=== PATIENT | female | born 1945 | race Caucasian/White ===

== ENCOUNTER → 2019-04-29 09:23 | Outpatient (BNVA) | payer MEDICAID, SELFPAY | PROVIDERS: Family Provider Nurse Practitioner; PCP Nurse Practitioner; Visit Provider Internal Medicine Rheumatology | DX: L40.50 Arthropathic psoriasis, unspecified (principal); E11.9 Type 2 diabetes mellitus without complications; I10 Essential (primary) hypertension | CPT/HCPCS: 80053; 82044; 83036; 85025; 85651; 86140 ==

== ENCOUNTER → 2019-06-23 14:17 | Outpatient (BNVA) | payer MEDICAID, SELFPAY | PROVIDERS: Family Provider Nurse Practitioner; PCP Nurse Practitioner; Visit Provider Internal Medicine Rheumatology | DX: L40.50 Arthropathic psoriasis, unspecified (principal); Z79.899 Other long term (current) drug therapy; L40.8 Other psoriasis | CPT/HCPCS: 99214 ==

== ENCOUNTER → 2019-08-06 08:27 | Outpatient (BNVA) | payer MEDICAID, SELFPAY | PROVIDERS: Family Provider Nurse Practitioner; PCP Nurse Practitioner; Visit Provider Internal Medicine Rheumatology | DX: Z79.899 Other long term (current) drug therapy (principal); L40.50 Arthropathic psoriasis, unspecified | CPT/HCPCS: 80076; 82306; 82565; 85025; 85651; 86140 ==

== ENCOUNTER 2019-08-22 05:40 | Emergency (ER) | payer MEDICAID, SELFPAY ==
--- NOTE | 2019-08-22 05:48 | CTR_ITS ---
PROCEDURE INFORMATION: Exam: CT Head Without Contrast Exam date and time: 08/22/2019 5:50 AM Age: 73 years old Clinical indication: Dizziness; Additional info: Symptoms of acute stroke TECHNIQUE: Imaging protocol: Computed tomography of the head without contrast. Radiation optimization: All CT scans at this facility use at least one of these dose optimization techniques: automated exposure control; mA and/or kV adjustment per patient size (includes targeted exams where dose is matched to clinical indication); or iterative reconstruction. COMPARISON: CT head wo con* [id number] 09/25/2016 9:43 PM RADIATION DOSE METRICS: Total DLP: 853.71 mGy-cm FINDINGS: Brain: There is minimal hypodensity of the periventricular white matter. This is nonspecific, but a likely cause is small vessel ischemic disease. No abnormal intra-axial or extra-axial fluid collections are identified. There is no midline shift. No intracranial hemorrhage identified. Ventricles: The ventricles and sulci are mildly and diffusely prominent, compatible with global brain volume loss. Bones/joints: Note is made of a 1.8 cm x 1.2 cm exostosis projecting from the left frontal bone on series 2, image 29. Sinuses: Visualized sinuses are unremarkable. No fluid levels. Mastoid air cells: Visualized mastoid air cells are well aerated. Soft tissues: Unremarkable. CT/CT head wo con* [id number] IMPRESSION: 1. No acute intracranial abnormality identified. Radiation Dose CTDIVOL = (mGy): DLP = 853.71 (mGy-cm)
--- NOTE | 2019-08-22 05:48 | ECG_ITS ---
Measurements Intervals [place] Rate: 83 P: 46 CT: 185 QRS: 69 QRSD: 84 T: 1 QT: 387 QTc: 455 SINUS RHYTHM Compared to ECG 04/23/2017 04:50:39 No significant changes Electronically Signed On 08-22-2019 11:38:27 CDT by Kassidy Frank M.D. [email or web address]
--- NOTE | 2019-08-22 05:48 | XR_ITS ---
WS: [id number] XR chest 1V portable [id number] REASON FOR EXAM: dizzy FINDINGS: Arteriosclerotic changes in the arch of the aorta. Comparisons were made to November 11, 2018. The lung fowler are well aerated. No pneumonia, pleural effusion, pulmonary edema, or mass effect. The hilum and apices normal. No osseous abnormalities. XR/XR chest 1V portable [id number] IMPRESSION: Arteriosclerotic changes.
[2019-08-22 05:50] VITALS: BP 163/82; RESP 18; TEMP 36.7; O2SAT 95; BMI 37.2
--- NOTE | 2019-08-22 06:12 | W.ED.DIZZY ---
HPI - Dizziness General: Chief Complaint: Dizziness Stated Complaint: dizzy Time Seen by Provider: 08/22/19 06:12 History of Present Illness: HPI Narrative: 73 yo female brought to the ER via EMS from home after waking with dizziness. States she woke up with a dizziness had been in her usual state of health yesterday. She had tried to roll over in bed and became very dizzy she was nauseous as well she has not had any vomiting now. She states she can move to a certain extent turn her head or even roll up on her side without causing much dizziness but if she goes too far or moves her head too fast then she will induce the dizziness her symptoms are completely resolved at this time. She has no chest pain. She is not had any diarrhea she does have a chronic cough related to COPD but she had no change in cough is not increasing sputum at all. She denies any other recent illness denies bowel or bladder symptoms no history of coronary artery disease no history of stroke. Associated symptoms: Denies chest pain, chills, headache(s), malaise, nausea, nasal congestion or vomiting Associated neuro symptoms: Deny numbness in extremities Review of Systems Const: Denies: fever, chills, body aches, change in appetite, fatigue or malaise ENMT: Denies: throat pain, ear pain, nasal discharge or nasal congestion Card: Denies: chest pain, edema, shortness of breath on exertion or shortness of breath when lying down Resp: Denies: shortness of breath, productive cough or non-productive cough GI: Denies: abdominal pain, nausea, vomiting, vomiting blood, coffee grounds in vomit, diarrhea, constipation, bloating, blood in stool or black tarry stool : Denies: flank pain, difficulty urinating, painful urination, urinary frequency or urinary urgency Skin/Breast: Denies: rash or itching Neuro: Reports: dizziness; Denies: headache, numbness in extremities, weakness in extremities, changes in sensation, lack of coordination, difficulty walking, frequent falls or vertigo PFS ED PFSH: Medical History COPD (chronic obstructive pulmonary disease) High risk medication use Hypertension Immunization counseling Insulin dependent diabetes mellitus Osteoarthritis Psoriasis Psoriatic arthritis Surgical History H/O tubal ligation Family History Other Cancer Heart disease Hypertension Denies family history of Rheumatoid arthritis Lupus Social History Smoking and tobacco status: former smoker Alcohol intake: never Physical Exam Const: COMMON NORMALS: no apparent distress GENERAL APPEARANCE: cooperative and comfortable ORIENTATION/CONSCIOUSNESS: Yes awake, Yes oriented to person, Yes oriented to place and Yes oriented to time HENMT: COMMON NORMALS: normocephalic, head/scalp atraumatic, hearing grossly normal bilaterally, external ears normal, EAC's normal, TM's normal bilaterally, nasal mucous membranes and turbinates normal, moist oral mucous membranes and oropharynx normal HEAD & SCALP: normocephalic and atraumatic NOSE: nasal mucous membranes and turbinates normal EXTERNAL EAR: Yes external ears normal EXTERNAL AUDITORY CANAL: EAC's normal TYMPANIC MEMBRANE: TM's normal bilaterally Eye: COMMON NORMALS: PERRL, EOMs intact bilaterally, conjunctivae normal and no scleral icterus VISUAL ACUITY: Yes acuity normal CONJUNCTIVA: Yes conjunctivae normal SCLERA: sclerae normal PUPIL: Yes PERRL EOM: No nystagmus Neck/C-Spine: COMMON NORMALS: full ROM, no lymphadenopathy, supple and no JVD Lymph: LYMPHATIC: no lymphadenopathy noted and no lymphedema noted Resp: COMMON NORMALS: normal respiratory effort, no retractions, no use of accessory muscles and clear to auscultation bilaterally AUSCULTATION: clear to auscultation bilaterally Cardio: COMMON NORMALS: no JVD, regular rate, regular rhythm and no murmurs RATE: regular rate RHYTHM: regular rhythm GI: COMMON NORMALS: soft to palpation and no hepatosplenomegaly AUSCULTATION: Yes normoactive bowel sounds PALPATION: Yes soft, No tender, No guarding and Yes no hepatosplenomegaly Extremity: COMMON NORMALS: normal to inspection, normal capillary refill, no clubbing, cyanosis or edema, no calf tenderness and no pedal edema Neuro: SENSORIUM/ORIENTATION: Yes oriented to person, Yes oriented to place and Yes oriented to time CRANIAL NERVES: Yes CN normal except as noted COORDINATION/BALANCE: urch-[id number]-cfcp test normal SENSORY EXAM: No sensory level loss detected MOTOR EXAM: strength 5/5 throughout COORDINATION: [id number] test normal Skin: COMMON NORMALS: no rashes or lesions noted GENERAL SKIN EXAM: no rashes or lesions noted Course Vital Signs: Vital signs: Vital Signs Temperature 98.1 F 08/22/19 05:50 Pulse Rate 92 08/22/19 07:54 Respiratory Rate 18 08/22/19 07:54 Blood Pressure 155/87 08/22/19 07:54 Pulse Oximetry 94 08/22/19 07:54 MDM - Dizziness MDM Narrative: Medical decision making narrative: He is doing much better the dizziness is reproducible if she moves her head the chest to move quick enough she moves slowly and actually does not reproduce. We will go and discharge her home meclizine worsening or problems return Lab Data: Attestation: I reviewed the patient's lab results. Labs: Lab Results 08/22/19 08/22/19 08/22/19 Range/Units 06:11 06:11 06:11 WBC 6.4 (4.0-10.0) 10^3/ uL RBC 4.33 (4.1-5.3) 10^6/u L Hgb 12.0 (11.5-15.3) g/dL Hct 38.9 (37.0-47.0) % MCV 89.8 (81-99) fL MCH 27.7 L (28.0-34.0) pg MCHC 30.8 (30.0-36.0) g/dL RDW 13.3 (12.1-15.1) % Plt Count 282 (130-400) 10^3/c mm MPV 10.9 H (7.4-10.4) fL Neut % (Auto) 54.6 % Lymph % (Auto) 32.9 % [place] % (Auto) 8.5 % Eos % (Auto) 3.5 % Baso % (Auto) 0.3 % Neut # (Auto) 3.5 (1.8-7.7) 10^3/u L Lymph # (Auto) 2.1 (0.8-4.8) 10^3/u L [place] # (Auto) 0.5 (0.2-0.9) 10^3/u L Eos # (Auto) 0.2 (0.0-0.8) 10^3/u L Baso # (Auto) 0.0 (0.0-0.1) 10^3/u L Nucleated RBC % (a uto) 0 % Nucleated RBCs # 0.0 /100WBC PT 13.50 H (10.5-13.3) SECO NDS INR 1.00 (0.8-1.2) APTT 30.3 (23.9-36.7) SECO NDS Sodium 140 (136-145) mmol/L Potassium 3.7 (3.5-5.1) mmol/L Chloride 98 (98-107) mmol/L Carbon Dioxide 29 (22-29) mmol/L Anion Gap 16.7 (5-19) BUN 9 (8-23) mg/dL Creatinine 0.7 (0.5-0.9) mg/dL Glucose 131 H (65-115) mg/dL Calculated Osmolal ity 288 (285-295) mOsm/k g Calcium 9.7 (8.5-10.5) mg/dL Total Bilirubin 0.2 (0.15-1.2) mg/dL AST 15 (0-32) U/L ALT 10 (0-33) U/L Alkaline Phosphata se 42 (35-105) IU/L Total Protein 7.6 (6.6-8.7) g/dL Albumin 3.8 (3.5-5.2) g/dL Globulin 3.8 (1.3-4.6) g/dL Discharge Plan Discharge Patient Disposition: Home, Self-Care Clinical Impression: Acute labyrinthitis Condition: Stable Prescriptions: New meclizine 25 mg tablet 25 mg PO QID PRN (Reason: dizziness) Qty: 20 RF: 0 No Action Humira Pen 40 mg/0.8 mL pen injector kit 40 mg SUBCUT ONCE RF: 0 ergocalciferol (vitamin D2) 50,000 unit capsule 50,000 unit PO .monthly RF: 0 albuterol sulfate 2.5 mg /3 mL (0.083 %) solution for nebulization 2.5 mg INHALATION Q4H PRNRF: 0 (DME) nebulizers Misc See Rx Instructions .ROUTE .MEDSUPPLY Qty: 1 RF: 0 (DME) nebulizers Kit See Rx Instructions .ROUTE .MEDSUPPLY Qty: 1 RF: 0 albuterol sulfate [ProAir HFA] 90 mcg/actuation HFA aerosol inhaler 2 puff INHALATION Q6H PRNRF: 0 atorvastatin 40 mg tablet 40 mg PO QDAY RF: 0 omeprazole 20 mg capsule,delayed release(DR/EC) 20 mg PO QDAY RF: 0 insulin lispro protamin-lispro 100 unit/mL (50-50) insulin pen 10 unit SUBCUT DAILY RF: 0 metformin 1,000 mg tablet 1,000 mg PO BID RF: 0 hydrochlorothiazide 12.5 mg tablet 25 mg PO QAM RF: 0 aspirin 325 mg tablet 325 mg PO DAILY RF: 0 levothyroxine 50 mcg tablet 50 mcg PO DAILY RF: 0 amlodipine 5 mg tablet 5 mg PO DAILY RF: 0 losartan 100 mg tablet 100 mg PO DAILY RF: 0 Discharge Orders: Discharge Order (Routine); Ordered 08/22/19 Ordered By: Tereso Crespo Referrals: Emily Mercer MD [Primary Care Provider] - Discharge Diet: Usual diet Discharge Activity: Increase activity as tolerated Activity Restrictions/Additional Instructions: Follow-up with your primary care provider if does not improve Discharge Date/Time: 08/22/19 07:56 Coding Level of Care Code ED Occupational Therapy Asst for Chg Fwd Exam Comprehensive
[2019-08-22 06:21] LABS: Basophils % 0.3 %; Eosinophils # 0.2 10^3/uL (0.0-0.8); Eosinophils % 3.5 %; Hematocrit 38.9 % (37.0-47.0); Lymphocytes # 2.1 10^3/uL (0.8-4.8); Lymphocytes % 32.9 %; Mean Corpuscular HGB Conc 30.8 g/dL (30.0-36.0); Mean Corpuscular Hemoglobin 27.7 pg (28.0-34.0); Mean Corpuscular Volume 89.8 fL (81-99); Mean Platelet Volume 10.9 fL (7.4-10.4); Monocytes # 0.5 10^3/uL (0.2-0.9); Monocytes % 8.5 %; Neutrophils # 3.5 10^3/uL (1.8-7.7); Neutrophils % 54.6 %; Nucleated Red Blood Cells % 0 %; Platelet Count 282 10^3/cmm (130-400); Red Blood Count 4.33 10^6/uL (4.1-5.3); Red Cell Distribution Width 13.3 % (12.1-15.1); White Blood Count 6.4 10^3/uL (4.0-10.0)
[2019-08-22 06:30] LABS: Partial Thromboplastin Time 30.3 SECONDS (23.9-36.7)
[2019-08-22 06:43] LABS: Alanine Aminotransferase 10 U/L (0-33); Albumin Level 3.8 g/dL (3.5-5.2); Alkaline Phosphatase 42 IU/L (35-105); Anion Gap 16.7 (5-19); Aspartate Amino Transferase 15 U/L (0-32); Blood Urea Nitrogen 9 mg/dL (8-23); Calcium 9.7 mg/dL (8.5-10.5); Carbon Dioxide 29 mmol/L (22-29); Chloride 98 mmol/L (98-107); Creatinine Clr Calc Pharmacy 69.7831; Globulin 3.8 g/dL (1.3-4.6); Glucose 131 mg/dL (65-115); Osmolality Calculated 288 mOsm/kg (285-295); Potassium 3.7 mmol/L (3.5-5.1); Sodium 140 mmol/L (136-145); Total Bilirubin 0.2 mg/dL (0.15-1.2); Total Protein 7.6 g/dL (6.6-8.7)
[2019-08-22 07:21] VITALS: BP 158/87
[2019-08-22] MEDS: losartan 50 mg Tablet 100 MG PO (07:21)
[2019-08-22] MEDS: meclizine 25 mg tablet PO (07:22)
[2019-08-22] MEDS: amlodipine 5 mg Tablet PO (07:22)
[2019-08-22 07:54] VITALS: BP 155/87; PULSE 92; RESP 18; O2SAT 94
== END 2019-08-22 07:56 | disposition home or self-care (01) ==
PROVIDERS: Emergency Medicine; Emergency Provider Family Medicine; PCP Internal Medicine
DX: H83.09 Labyrinthitis, unspecified ear (principal); Z79.4 Long term (current) use of insulin; Z79.82 Long term (current) use of aspirin; J44.9 Chronic obstructive pulmonary disease, unspecified; I10 Essential (primary) hypertension; E11.9 Type 2 diabetes mellitus without complications; Z87.891 Personal history of nicotine dependence
CPT/HCPCS: 12345; 70450; 71045; 80053; 85025; 85610; 85730; 93005; 99282; 99283; J8597

== ENCOUNTER → 2019-09-08 09:05 | Outpatient (BNVA) | payer MEDICAID, SELFPAY | PROVIDERS: PCP Internal Medicine; Visit Provider Internal Medicine | DX: E03.9 Hypothyroidism, unspecified (principal); E11.9 Type 2 diabetes mellitus without complications; L40.50 Arthropathic psoriasis, unspecified | CPT/HCPCS: 80053; 83036; 84443; 85025; 85651; 86140 ==

== ENCOUNTER → 2019-09-28 09:51 | Outpatient (BNVA) | payer MEDICAID, SELFPAY | PROVIDERS: PCP Internal Medicine; Visit Provider Internal Medicine Rheumatology | DX: L40.50 Arthropathic psoriasis, unspecified (principal); Z79.899 Other long term (current) drug therapy; L40.8 Other psoriasis; M17.10 Unilateral primary osteoarthritis, unspecified knee | CPT/HCPCS: 99214 ==

== ENCOUNTER 2019-10-06 09:31 | Outpatient (CLI) | payer MEDICAID, SELFPAY ==
--- NOTE | 2019-10-06 09:35 | CT_ITS ---
WS: [id number] CT LUNG CANCER SCREENING DLP: 79.42 mGy.cm DIvol: 2.28 mGy CLINICAL INFORMATION SCREENING VISIT: Baseline COMPARISON: Chest radiograph 08/22/2019 FINDINGS Diagnostic quality: Satisfactory Comments: None. Lung Nodules: 4 mm posterior solid nodule RIGHT lower lobe, image 229 of series 3. Lungs: Hyperinflated lungs from emphysema. Benign calcified granuloma along the RIGHT minor fissure. Heart: Mild enlargement of the heart chambers. Extensive coronary artery atherosclerosis. Other findings: Extensive atherosclerosis of the thoracic aorta with no aneurysm. Pulmonary artery si ze is equal to the aorta. No adenopathy appreciated. Moderate size hiatal hernia. Cholelithiasis. Degenerative changes throughout the thoracic spine. CT/CT lung screening [id number] IMPRESSION: LUNG-RADS: 2S-Benign Appearance or Behavior with Significant Findings FOLLOW UP: 12 Month: Continue annual screening with LDCT 1. Severe atherosclerosis coronary arteries. 2. Extensive atherosclerosis thoracic aorta.
== END 2019-10-06 09:32 | disposition home or self-care (01) ==
LOC: CT 09:31
PROVIDERS: PCP Internal Medicine; Visit Provider Internal Medicine
DX: Z12.2 Encounter for screening for malignant neoplasm of respiratory organs (principal); Z87.891 Personal history of nicotine dependence; I25.10 Atherosclerotic heart disease of native coronary artery without angina pectoris; I70.0 Atherosclerosis of aorta
CPT/HCPCS: G0297

== ENCOUNTER 2019-10-23 09:28 | Outpatient (CLI) | payer MEDICAID, SELFPAY ==
--- NOTE | 2019-10-23 09:35 | USCV_ITS ---
Reginaldo Mini Age: 74 Gender: F : 1945 Exam Date: 10/23/2019 09:46 Ordering Phys: Emily Mercer MD Technologist: Elvira Duncan Exam Location: [facility] [place] Indication: SHORTNESS OF BREATH BP: / HR: 83 Rhythm: Sinus Technical Quality: Fair MEASUREMENTS (Male / Female) Normal Values 2D ECHO LV Diastolic Diameter PLAX 5.4 cm 4.2 - 5.9 / 3.9 - 5.3 cm LV Systolic Diameter PLAX 4.0 cm IVS Diastolic Thickness 1.4 cm 0.6 - 1.0 / 0.6 - 0.9 cm IVS Systolic Thickness 2.2 cm LVPW Diastolic Thickness 1.0 cm 0.6 - 1.0 / 0.6 - 0.9 cm LVPW Systolic Thickness 1.6 cm LVOT Diameter 2.0 cm LV Ejection Fraction 2D Teich 51.7 % LV Ejection Fraction MOD 2C 67.8 % LV Ejection Fraction 2C AL 72.5 % LA Diameter 3.6 cm LA Width 2.6 cm LA Height 6.3 cm RA Width 2.5 cm RA Height 5.1 cm M-MODE LV Diastolic Diameter MM 6.5 cm 4.2 - 5.9 / 3.9 - 5.3 cm LV Systolic Diameter MM 4.8 cm LV Ejection Fraction MM Teich 49.6 % IVS Diastolic Thickness MM 0.7 cm 0.6 - 1.0 / 0.6 - 0.9 cm IVS Systolic Thickness MM 1.4 cm LVPW Diastolic Thickness MM 0.7 cm 0.6 - 1.0 / 0.6 - 0.9 cm LVPW Systolic Thickness MM 1.7 cm Aortic Annulus Diameter 3.9 cm LA Ao Ratio MM 0.9 MV E Point Septal Separation 0.8 cm DOPPLER AV Peak Velocity 114.0 cm/s LVOT Peak Velocity 125.0 cm/s AV Area Cont Eq vti 4.4 cm squared AV Area Cont Eq pk 3.5 cm squared MV Peak Velocity 119.0 cm/s MV Area PHT 4.6 cm squared Mitral E to A Ratio 0.6 MV E' Velocity 5.0 cm/s Mitral E to MV E' Ratio 17.9 Mitral E to LV E' Lateral Ratio 15.3 Mitral E to LV E' Septal Ratio 21.6 TR Peak Velocity 87.0 cm/s TR Peak Gradient 3.1 mmHg Right Atrial Pressure 3.0 mmHg Pulmonary Artery Systolic Pressu 6.0 mmHg PV Peak Velocity 84.0 cm/s RV Acceleration Time 0.1 s FINDINGS Left Ventricle Normal left ventricular cavity size. Normal left ventricular systolic function. No regional wall motion abnormalities. Left ventricular ejection fraction is estimated at 55 %. Grade I/IV diastolic dysfunction (abnormal relaxation filling pattern), normal to mildly elevated filling pressures. Right Ventricle The right ventricle is normal in size and function. RVSP could not be calculated due to incomplete tricuspid regurgitation velocity profile. Right Atrium The right atrium is normal in size. Left Atrium The left atrium is normal in size. Mitral Valve Moderately thickened mitral valve. Severe mitral annular calcification. No mitral valve stenosis. No mitral valve regurgitation. Aortic Valve Severe aortic valve calcification. No aortic valve stenosis. No aortic valve regurgitation. Tricuspid Valve Thickened tricuspid valve. No tricuspid valve stenosis. No tricuspid valve regurgitation. Pulmonic Valve Structurally normal pulmonic valve without significant stenosis. There is no pulmonic regurgitation. Pericardium Normal pericardium without effusion. Aorta Normal ascending aorta dimension. CONCLUSIONS 1-Normal left ventricular cavity size. Normal left ventricular systolic function. No regional wall motion abnormalities. Left ventricular ejection fraction is estimated at 55 %. Grade I/IV diastolic dysfunction (abnormal relaxation filling pattern), normal to mildly elevated filling pressures. 2-Moderately thickened mitral valve. Severe mitral annular calcification. No mitral valve stenosis. No mitral valve regurgitation. 3-Severe aortic valve calcification. No aortic valve stenosis. No aortic valve regurgitation. 4-There is no pericardial effusion. 5-The right ventricle is normal in size and function. RVSP could not be calculated due to incomplete tricuspid regurgitation velocity profile. 6-Right atrial pressure is around 5 mm of mercury. 7-No significant change since the prior echocardiogram study of 04/24/2017. Mare Rosales MD (Electronically Signed) Final Date: 26 October 2019 20:22 S
== END 2019-10-23 09:29 | disposition home or self-care (01) ==
LOC: RAD 09:29
PROVIDERS: PCP Internal Medicine; Visit Provider Internal Medicine
DX: R06.02 Shortness of breath (principal); I05.9 Rheumatic mitral valve disease, unspecified; I70.0 Atherosclerosis of aorta
CPT/HCPCS: 93306

== ENCOUNTER 2019-12-04 11:30 | Outpatient (CLI) | payer MEDICAID, SELFPAY ==
--- NOTE | 2019-12-04 11:33 | MM_ITS ---
WS: [id number] BILATERAL SCREENING DIGITAL MAMMOGRAM WITH CAD HISTORY: SCREENING COMPARISON: 10/21/2018 and 10/18/2017 Bilateral CC and MLO views submitted. Computer aided detection analyzed. Breast composition: There are scattered areas of fibroglandular density. No suspicious masses, microc alcifications or architectural distortion. Extensive vascular calcifications within each breast. MM/[id number] IMPRESSION: BI-RADS: 2-Benign FOLLOW UP: 1 Year Follow-up
== END 2019-12-04 11:31 | disposition home or self-care (01) ==
LOC: RADSHAW 11:31
PROVIDERS: PCP Internal Medicine; Visit Provider Internal Medicine
DX: Z12.31 Encounter for screening mammogram for malignant neoplasm of breast (principal)
CPT/HCPCS: 77067

== ENCOUNTER → 2019-12-18 09:11 | Outpatient (BNVA) | payer MEDICAID, SELFPAY | PROVIDERS: PCP Internal Medicine; Visit Provider Internal Medicine | DX: E03.9 Hypothyroidism, unspecified (principal); E11.9 Type 2 diabetes mellitus without complications; E78.5 Hyperlipidemia, unspecified; I10 Essential (primary) hypertension; L40.50 Arthropathic psoriasis, unspecified | CPT/HCPCS: 80053; 80061; 83036; 84443; 85025; 85651; 86140 ==

== ENCOUNTER → 2020-01-26 08:04 | Outpatient (BNVA) | payer MEDICAID, SELFPAY | PROVIDERS: PCP Internal Medicine; Visit Provider Internal Medicine Rheumatology | DX: Z79.899 Other long term (current) drug therapy (principal); L40.50 Arthropathic psoriasis, unspecified; Z71.89 Other specified counseling | CPT/HCPCS: 80076; 82565; 85025; 85651; 86140 ==

== ENCOUNTER → 2020-01-28 10:52 | Outpatient (BNVA) | payer MEDICAID, SELFPAY | PROVIDERS: PCP Internal Medicine; Visit Provider Internal Medicine Rheumatology | DX: L40.50 Arthropathic psoriasis, unspecified (principal); Z79.899 Other long term (current) drug therapy; M17.10 Unilateral primary osteoarthritis, unspecified knee; L40.8 Other psoriasis | CPT/HCPCS: 99214 ==

== ENCOUNTER → 2020-03-07 08:03 | Outpatient (BNVA) | payer MEDICAID, SELFPAY | PROVIDERS: PCP Internal Medicine; Visit Provider Internal Medicine | DX: E11.9 Type 2 diabetes mellitus without complications (principal); I10 Essential (primary) hypertension; L40.50 Arthropathic psoriasis, unspecified | CPT/HCPCS: 80053; 82306; 83036; 85025; 85651; 86140 ==

== ENCOUNTER → 2020-04-18 08:38 | Outpatient (BNVA) | payer MEDICAID, SELFPAY | PROVIDERS: PCP Internal Medicine; Visit Provider Internal Medicine Rheumatology | DX: Z79.899 Other long term (current) drug therapy (principal); L40.50 Arthropathic psoriasis, unspecified | CPT/HCPCS: 80076; 82565; 85025; 85651; 86140 ==

== ENCOUNTER → 2020-06-08 08:19 | Outpatient (BNVA) | payer MEDICAID, SELFPAY | PROVIDERS: PCP Internal Medicine; Visit Provider Internal Medicine | DX: E03.9 Hypothyroidism, unspecified (principal); E78.5 Hyperlipidemia, unspecified; I10 Essential (primary) hypertension; E11.9 Type 2 diabetes mellitus without complications | CPT/HCPCS: 80053; 80061; 82043; 83036; 85025; 85651 ==

== ENCOUNTER → 2020-07-06 08:49 | Outpatient (BNVA) | payer MEDICAID, SELFPAY | PROVIDERS: PCP Internal Medicine; Visit Provider Internal Medicine Rheumatology | DX: L40.50 Arthropathic psoriasis, unspecified (principal); Z79.899 Other long term (current) drug therapy; M17.10 Unilateral primary osteoarthritis, unspecified knee; L40.9 Psoriasis, unspecified | CPT/HCPCS: 36415; 80076; 82565; 85025; 86140 ==

== ENCOUNTER → 2020-07-18 09:02 | Outpatient (BNVA) | payer MEDICAID, SELFPAY | PROVIDERS: PCP Internal Medicine; Visit Provider Internal Medicine Rheumatology | DX: L40.50 Arthropathic psoriasis, unspecified (principal); L40.9 Psoriasis, unspecified; Z79.899 Other long term (current) drug therapy; M17.10 Unilateral primary osteoarthritis, unspecified knee; Z87.891 Personal history of nicotine dependence | CPT/HCPCS: 99214 ==

== ENCOUNTER → 2020-09-05 08:12 | Outpatient (BNVA) | payer MEDICAID, SELFPAY | PROVIDERS: PCP Internal Medicine; Visit Provider Internal Medicine | DX: L40.50 Arthropathic psoriasis, unspecified (principal); I10 Essential (primary) hypertension; E11.9 Type 2 diabetes mellitus without complications; E03.9 Hypothyroidism, unspecified; M17.10 Unilateral primary osteoarthritis, unspecified knee; Z79.899 Other long term (current) drug therapy | CPT/HCPCS: 80053; 83036; 85025; 85651; 86140 ==

== ENCOUNTER → 2020-12-12 08:36 | Outpatient (BNVA) | payer MEDICAID, SELFPAY | PROVIDERS: PCP Internal Medicine; Visit Provider Internal Medicine | DX: E03.9 Hypothyroidism, unspecified (principal); E11.9 Type 2 diabetes mellitus without complications; I10 Essential (primary) hypertension; Z68.33 Body mass index [BMI] 33.0-33.9, adult; Z79.899 Other long term (current) drug therapy | CPT/HCPCS: 80053; 80061; 83036; 84443; 85025; 85651 ==

== ENCOUNTER → 2021-02-01 08:38 | Outpatient (BNVA) | payer MEDICAID, SELFPAY | PROVIDERS: PCP Internal Medicine; Visit Provider Internal Medicine Rheumatology | DX: L40.50 Arthropathic psoriasis, unspecified (principal); L40.9 Psoriasis, unspecified; Z79.899 Other long term (current) drug therapy; Z71.89 Other specified counseling; M17.10 Unilateral primary osteoarthritis, unspecified knee | CPT/HCPCS: 80076; 82565; 85025; 86140 ==

== ENCOUNTER 2021-02-08 09:44 | Outpatient (CLI) | payer MEDICAID, SELFPAY ==
--- NOTE | 2021-02-08 09:49 | MM_ITS ---
WS: [id number] BILATERAL DIGITAL SCREENING MAMMOGRAM WITH CAD CLINICAL INFORMATION: SCREENING HISTORY: Screening mammogram. No current complaints. COMPARISON: December 04, 2019 TECHNIQUE: Bilateral CC and MLO views. FINDINGS: Fatty-replaced breasts bilaterally. Punctate calcifications. Vascular calcifications. Stable secretor y calcifications. No suspicious focal mass, asymmetry, calcifications, or architectural distortion. N o evidence of malignancy. MM/[id number] IMPRESSION: BI-RADS: 2-Benign FOLLOW UP: 1 Year Follow-up Recommend return to annual screening mammography.
== END 2021-02-08 09:45 | disposition home or self-care (01) ==
PROVIDERS: PCP Internal Medicine; Visit Provider Internal Medicine
DX: Z12.31 Encounter for screening mammogram for malignant neoplasm of breast (principal)
CPT/HCPCS: 77067

== ENCOUNTER → 2021-02-15 10:30 | Outpatient (BNVA) | payer MEDICAID, SELFPAY | PROVIDERS: PCP Internal Medicine; Visit Provider Internal Medicine Rheumatology | DX: L40.50 Arthropathic psoriasis, unspecified (principal); L40.9 Psoriasis, unspecified; Z79.899 Other long term (current) drug therapy; M17.0 Bilateral primary osteoarthritis of knee; Z71.89 Other specified counseling; Z87.891 Personal history of nicotine dependence | CPT/HCPCS: 99214 ==

== ENCOUNTER → 2021-03-06 08:20 | Outpatient (BNVA) | payer MEDICAID, SELFPAY | PROVIDERS: PCP Internal Medicine; Visit Provider Internal Medicine | DX: E11.9 Type 2 diabetes mellitus without complications (principal); I10 Essential (primary) hypertension; L40.50 Arthropathic psoriasis, unspecified; Z79.899 Other long term (current) drug therapy | CPT/HCPCS: 80053; 83036; 84443; 85025; 85651 ==

== ENCOUNTER → 2021-03-07 08:40 | Outpatient (BNVA) | payer MEDICAID, SELFPAY | PROVIDERS: PCP Internal Medicine; Visit Provider Internal Medicine | DX: E11.9 Type 2 diabetes mellitus without complications (principal); I10 Essential (primary) hypertension | CPT/HCPCS: 82043 ==

== ENCOUNTER → 2021-07-03 08:23 | Outpatient (BNVA) | payer MEDICAID, SELFPAY | PROVIDERS: PCP Internal Medicine; Visit Provider Internal Medicine | DX: E11.9 Type 2 diabetes mellitus without complications (principal); E03.9 Hypothyroidism, unspecified; Z79.84 Long term (current) use of oral hypoglycemic drugs | CPT/HCPCS: 80053; 80061; 83036; 84443; 85025 ==

== ENCOUNTER → 2021-08-01 08:27 | Outpatient (BNVA) | payer MEDICAID, SELFPAY | PROVIDERS: PCP Internal Medicine | DX: L40.50 Arthropathic psoriasis, unspecified (principal); Z79.899 Other long term (current) drug therapy | CPT/HCPCS: 80076; 82565; 85025; 86140 ==

== ENCOUNTER → 2021-08-10 09:34 | Outpatient (BNVA) | payer MEDICAID, SELFPAY | PROVIDERS: PCP Internal Medicine; Visit Provider Internal Medicine Rheumatology | DX: L40.50 Arthropathic psoriasis, unspecified (principal); L40.9 Psoriasis, unspecified; Z79.899 Other long term (current) drug therapy; M17.0 Bilateral primary osteoarthritis of knee; Z71.89 Other specified counseling | CPT/HCPCS: 99214 ==

== ENCOUNTER → 2021-11-06 08:23 | Outpatient (BNVA) | payer MEDICAID, SELFPAY | PROVIDERS: PCP Internal Medicine; Visit Provider Internal Medicine | DX: E11.9 Type 2 diabetes mellitus without complications (principal); I10 Essential (primary) hypertension; E55.9 Vitamin D deficiency, unspecified; L40.50 Arthropathic psoriasis, unspecified; Z79.899 Other long term (current) drug therapy | CPT/HCPCS: 80053; 80076; 82306; 83036; 84443; 85025; 86140 ==

== ENCOUNTER → 2022-01-15 08:38 | Outpatient (BNVA) | payer MEDICAID, SELFPAY | PROVIDERS: PCP Internal Medicine; Visit Provider Internal Medicine Rheumatology | DX: Z79.899 Other long term (current) drug therapy (principal); Z71.89 Other specified counseling; L40.50 Arthropathic psoriasis, unspecified | CPT/HCPCS: 82565; 85025 ==

== ENCOUNTER → 2022-02-05 10:07 | Outpatient (BNVA) | payer MEDICAID, SELFPAY | PROVIDERS: PCP Internal Medicine; Visit Provider Internal Medicine Rheumatology | DX: L40.50 Arthropathic psoriasis, unspecified (principal); Z79.899 Other long term (current) drug therapy; M17.0 Bilateral primary osteoarthritis of knee; Z71.89 Other specified counseling; L40.9 Psoriasis, unspecified | CPT/HCPCS: 99214 ==

== ENCOUNTER → 2022-03-20 08:35 | Outpatient (BNVA) | payer MEDICAID, SELFPAY | PROVIDERS: PCP Internal Medicine; Referring Provider Internal Medicine; Visit Provider Internal Medicine | DX: E03.9 Hypothyroidism, unspecified (principal); E11.9 Type 2 diabetes mellitus without complications; L40.9 Psoriasis, unspecified; Z79.899 Other long term (current) drug therapy; L40.50 Arthropathic psoriasis, unspecified | CPT/HCPCS: 80053; 80061; 82043; 82306; 84443; 85025; 85651 ==

== ENCOUNTER 2022-03-29 10:55 | Outpatient (CLI) | payer MEDICAID, SELFPAY ==
--- NOTE | 2022-03-29 11:02 | XR_ITS ---
WS: [id number] Right knee, 3 views, 03/29/2022 Clinical Data: M17.10 - Unilateral primary osteoarthritis, unspecified knee Comparison: AP bilateral knees, 11/08/2009. Findings: No fractures or dislocations are seen. There is medial and lateral joint compartment narrowing. There are spurs of the medial and lateral tibial plateau and lateral femoral condyle.. The posterior mack la shows large spurs. Minimal vascular calcifications are seen. The soft tissues are unremarkable. XR/XR knee RT 3V* [id number] Impression: Moderate osteoarthritis of the right knee Kellgren-Patel Classification: grade 3 (moderate): moderate multiple osteoph ytes, definite narrowing of joint space and some sclerosis and possible deformi ty of bone ends
== END 2022-03-29 10:56 | disposition home or self-care (01) ==
PROVIDERS: PCP Internal Medicine; Visit Provider Internal Medicine Rheumatology
DX: M17.11 Unilateral primary osteoarthritis, right knee (principal)
CPT/HCPCS: 73562

== ENCOUNTER → 2022-05-30 08:29 | Outpatient (BNVA) | payer MEDICAID, SELFPAY | PROVIDERS: PCP Internal Medicine; Visit Provider Internal Medicine Rheumatology | DX: L40.50 Arthropathic psoriasis, unspecified (principal); M19.90 Unspecified osteoarthritis, unspecified site; Z79.899 Other long term (current) drug therapy | CPT/HCPCS: 80076; 82565; 85025; 86140 ==

== ENCOUNTER → 2022-06-19 13:01 | Outpatient (BNVA) | payer MEDICAID, SELFPAY | PROVIDERS: PCP Internal Medicine; Visit Provider Internal Medicine Rheumatology | DX: L40.50 Arthropathic psoriasis, unspecified (principal); M17.0 Bilateral primary osteoarthritis of knee; Z79.899 Other long term (current) drug therapy; Z71.89 Other specified counseling | CPT/HCPCS: 99214 ==

== ENCOUNTER → 2022-09-26 08:35 | Outpatient (BNVA) | payer MEDICAID, SELFPAY | PROVIDERS: PCP Internal Medicine; Visit Provider Internal Medicine Rheumatology | DX: Z79.899 Other long term (current) drug therapy (principal); L40.50 Arthropathic psoriasis, unspecified | CPT/HCPCS: 80076; 82565; 85025; 86140 ==

== ENCOUNTER → 2022-12-03 08:23 | Outpatient (BNVA) | payer MEDICAID, SELFPAY | PROVIDERS: PCP Internal Medicine; Visit Provider Internal Medicine Rheumatology | DX: Z79.899 Other long term (current) drug therapy (principal); Z71.89 Other specified counseling; L40.50 Arthropathic psoriasis, unspecified; I10 Essential (primary) hypertension; E11.9 Type 2 diabetes mellitus without complications | CPT/HCPCS: 80076; 82565; 85025; 86140 ==

== ENCOUNTER → 2022-12-12 12:41 | Outpatient (BNVA) | payer MEDICAID, SELFPAY | PROVIDERS: PCP Internal Medicine; Visit Provider Internal Medicine Rheumatology | DX: Z79.899 Other long term (current) drug therapy (principal); L40.50 Arthropathic psoriasis, unspecified; M17.0 Bilateral primary osteoarthritis of knee; Z71.89 Other specified counseling; L40.9 Psoriasis, unspecified | CPT/HCPCS: 99214 ==

== ENCOUNTER → 2023-01-08 08:43 | Outpatient (BNVA) | payer MEDICAID, SELFPAY | PROVIDERS: PCP Internal Medicine; Visit Provider Internal Medicine | DX: E11.9 Type 2 diabetes mellitus without complications (principal); E78.5 Hyperlipidemia, unspecified; I10 Essential (primary) hypertension | CPT/HCPCS: 80053; 80061; 83036; 85025; 85651; 86140 ==

== ENCOUNTER → 2023-05-22 08:27 | Outpatient (BNVA) | payer MEDICAID, SELFPAY | PROVIDERS: PCP Internal Medicine; Visit Provider Internal Medicine Rheumatology | DX: Z71.89 Other specified counseling (principal); Z79.899 Other long term (current) drug therapy; L40.9 Psoriasis, unspecified | CPT/HCPCS: 80076; 82565; 85025; 86140 ==

== ENCOUNTER → 2023-06-05 12:28 | Outpatient (BNVA) | payer MEDICAID, SELFPAY | PROVIDERS: PCP Internal Medicine; Visit Provider Internal Medicine Rheumatology | DX: L40.50 Arthropathic psoriasis, unspecified (principal); Z79.899 Other long term (current) drug therapy; M17.0 Bilateral primary osteoarthritis of knee; Z71.89 Other specified counseling; L40.9 Psoriasis, unspecified | CPT/HCPCS: 99214 ==

== ENCOUNTER → 2023-07-09 08:23 | Outpatient (BNVA) | payer MEDICAID, SELFPAY | PROVIDERS: PCP Internal Medicine; Visit Provider Internal Medicine | DX: E11.649 Type 2 diabetes mellitus with hypoglycemia without coma (principal); I10 Essential (primary) hypertension; E78.5 Hyperlipidemia, unspecified | CPT/HCPCS: 80053; 80061; 83036; 84443; 85025; 85651; 86140 ==

== ENCOUNTER → 2023-09-03 08:24 | Outpatient (BNVA) | payer MEDICAID, SELFPAY | PROVIDERS: PCP Internal Medicine; Visit Provider Nurse Practitioner Family | DX: D48.5 Neoplasm of uncertain behavior of skin (principal); L82.0 Inflamed seborrheic keratosis; L40.0 Psoriasis vulgaris; D22.5 Melanocytic nevi of trunk; L81.4 Other melanin hyperpigmentation | CPT/HCPCS: 11102; 17110; 99204 ==

== ENCOUNTER → 2023-11-04 09:10 | Outpatient (BNVA) | payer MEDICAID, SELFPAY | PROVIDERS: PCP Internal Medicine; Visit Provider Internal Medicine Rheumatology | DX: L40.50 Arthropathic psoriasis, unspecified (principal); Z79.899 Other long term (current) drug therapy | CPT/HCPCS: 80076; 82565; 85025; 86140 ==

== ENCOUNTER → 2023-11-12 11:42 | Outpatient (BNVA) | payer MEDICAID, SELFPAY | PROVIDERS: PCP Internal Medicine; Visit Provider Internal Medicine Rheumatology | DX: L40.50 Arthropathic psoriasis, unspecified (principal); M17.0 Bilateral primary osteoarthritis of knee; Z79.899 Other long term (current) drug therapy; Z71.85 Encounter for immunization safety counseling; L40.9 Psoriasis, unspecified | CPT/HCPCS: 99214 ==

== ENCOUNTER 2024-01-01 12:45 | Observation (INO) | payer MEDICAID, SELFPAY ==
[2024-01-01] VITALS (8 sets, daily range): BP systolic 108–186; BP diastolic 57–154; PULSE 71–87; RESP 16–18; TEMP 36.5–36.6; O2SAT 92–96; BMI 36.0; BMI 34.5
--- NOTE | 2024-01-01 12:48 | CT_ITS ---
WS: [id number] CT HEAD NONCONTRAST HISTORY: Possible stroke TECHNIQUE: Contiguous axial imaging performed through the brain in 2.5 mm imaging. Bone and soft tiss ue windows. Sagittal and coronal reformats reviewed. All CT scans at [facility] use at least one of these dose optimization techniques: automated exposure control; mA and/or kV adjustment per pa tient size (includes targeted exams where dose is matched to clinical indication); or iterative recon struction. DLP: 1130.42 mGy.cm COMPARISON: 08/22/2019 No acute intracranial hemorrhage, midline shift or mass effect. Mild atrophy and mild small vessel disease. No prior infarct. Ventricles: Normal size with no hydrocephalus. No inferior displacement of the cerebellar tonsils. Paranasal sinuses: As visualized are clear. Mastoid air cells: Well pneumatized. Calvarium and scalp: No fracture. Reidentified is a calcified scalp lesion over the LEFT frontal pat on measuring 10 x 16 mm which has been present on prior studies. May be a bony exostosis. Dense calcifications in the distal vertebral and the intracranial carotid arteries. CT/CT head wo con* [id number] IMPRESSION: 1. No acute intracranial hemorrhage or edema. 2. Mild atrophy and mild small vessel disease.
--- NOTE | 2024-01-01 12:48 | ECG_ITS ---
[facility] Test Date: 2024-01-01 Pat Name: Mini Hair Department: Room: Gender: Female Clinical Care Leader: : 1945 Requested By: Amy Barone Order Number: [id number] Douglas MD: Kassidy Frank M.D. Measurements Intervals [place] Rate: 80 P: 23 GA: 172 QRS: 0 QRSD: 87 T: 61 QT: 383 QTc: 443 Interpretive Statements SINUS RHYTHM NONSPECIFIC T-WAVE ABNORMALITY Compared to ECG 08/22/2019 06:40:54 T-wave abnormality now present Electronically Signed On 01-02-2024 0:21:35 CDT by Kassidy Frank M.D. [email or web address]
--- NOTE | 2024-01-01 12:55 | ED_ITS ---
HPI - Weakness 2 General: Chief complaint: Weakness Stated complaint: TIA Time Seen by Provider: 01/01/24 12:47 History of Present Illness: 78-year-old female with a history of hyp ertension, diabetes and COPD who presents to the emergency room after having a couple episodes of neurologic deficit. She says yesterday she had some issues with her right arm where she felt like it was out of control. This resolved. Then again today she had an episode but this time she says it felt like the whole right side of her body was weak. Mild time EMS arrived and had completely resolved. He is not on any blood thinners. Says has been feeling fine otherwise. No fevers. No chills. No cough. No shortness of breath. No chest pain. No abdominal pain. No nausea or vomiting. No altered mental status. Review of Systems 2 Narrative: Constitutional symptoms: Negative except as documented in HPI. Skin symptoms: Negative except as documented in HPI. Eye symptoms: Negative except as documented in HPI. ENMT symptoms: Negative except as documented in HPI. Respiratory symptoms: Negative except as documented in HPI. Cardiovascular symptoms: Negative except as documented in HPI. Gastrointestinal symptoms: Negative except as documented in HPI. Genitourinary symptoms: Negative except as documented in HPI. Musculoskeletal symptoms: Negative except as documented in HPI. Neurologic symptoms: Negative except as documented in HPI. Psychiatric symptoms: Negative except as documented in HPI. Endocrine symptoms: Negative except as documented in HPI. PFSH ED 2 PFSH: Medical History OA (osteoarthritis) of knee Psoriatic arthritis Psoriasis Osteoarthritis Insulin dependent diabetes mellitus COPD (chronic obstructive pulmonary disease) Hypertension High risk medication use Immunization counseling Surgical History H/O tubal ligation Family History Other Cancer Heart disease Hypertension Denies family history of Rheumatoid arthritis Lupus Social History Smoking and tobacco/nicotine status: former use of tobacco/nicotine Alcohol intake: never Substance/Drug Use: unknown Physical Exam 2 Narrative: EXAM NARRATIVE: General: Alert, no acute distress. Skin: Warm, dry. Head: Normocephalic, atraumatic. Neck: Supple, trachea midline. Eye: Extraocular movements are intact. Ears, nose, mouth and throat: mucosa moist. Cardiovascular: Regular, Normal peripheral perfusion. Respiratory: Lungs are clear to auscultation, respirations are non-labored, breath sounds are equal, Symmetrical chest wall expansion. Gastrointestinal: Soft, Nontender, Non distended Musculoskeletal: Normal ROM, no deformity. Neurological: Alert and oriented, patient has some mild difficulty with coordination in her right hand. Otherwise I see no obvious focal deficits. Psychiatric: Cooperative, appropriate mood & affect. Course 2 Vital Signs: Vital signs: Vital Signs Temperature 97.8 F 01/01/24 12:46 Pulse Rate 75 01/01/24 14:14 Respiratory Rate 16 01/01/24 14:14 Blood Pressure 111/57 01/01/24 14:14 Pulse Oximetry 93 01/01/24 14:14 Oxygen Delivery Me thod Room Air 01/01/24 14:14 MDM - Weakness Medical Decision Making Medical decision making: Differential diagnosis for patient with focal neurologic deficit(s) includes but not limited to and based on the above HPI, review of systems and physical exam: ischemic stroke, hemorrhagic stroke and embolic stroke secondary to atrial fibrillation), TIA, Urena's palsey, metabolic encephalopathy with previous stroke. Orders placed to evaluate differential diagnosis based on the above differential, HPI and physical exam EKG: Time 1326. Rate 80. Normal sinus rhythm, No ST-T changes, no ectopy, normal RI & QRS intervals, This was reviewed and interpreted by myself the ER physician at 1330. CT head: No acute intracranial process. no intracranial hemorrhage, no evidence of infarct. no evidence of acute fracture.This was reviewed and interpreted by myself the ER physician. Lab Review: Laboratory results were reviewed and interpreted by myself the emergency room physician. Lab work is fairly unremarkable. No leukocytosis. No anemia. Platelets are 276. BUN/creatinine are 9 and 0.7. Glucose is little elevated at 213. Liver enzymes are normal. Urine shows no signs of infection. I reviewed the patient's medical record. Reexamination: Patient remained stable. No increased work of breathing. No altered mental status. No focal motor deficits. Consultation: I spoke with Dr. Tan who is seen the patient in the emergency room. He recommends CTA, echo, increase atorvastatin to 80 mg. Change aspirin from 324 to 81 mg. Add Plavix 71 mg every morning with food. Cardiac monitoring overnight. MRI of the morning. Assessment and plan: Cerebrovascular accident -I discussed the patient with the hospitalist on-call who is admitting the patient. - Discussed findings and plan with patient. Answered any questions. - All laboratory values were reviewed and interpreted personally by myself, the ER physician - All imaging was reviewed and interpreted personally by myself, the ER physician. - Evaluation and treatment of this problem were appropriate in the emergency setting Lab Data 01/01/24 12:59 01/01/24 12:[address] 01/01/24 12:48 IMPRESSION: 1. No acute intracranial hemorrhage or edema. 2. Mild atrophy and mild small vessel disease. Laboratory Results WBC 7.93 10^3/uL (3.29-11.43) 01/01/24 12:59 RBC 4.50 10^6/uL (3.85-5.65) 01/01/24 12:59 Hgb 12.80 g/dL (11.27-16.99) 01/01/24 12:59 Hct 40.4 % (36-47) 01/01/24 12:59 MCV 89.8 fl (85-98) 01/01/24 12:59 MCH 28.4 pg (27-33) 01/01/24 12:59 MCHC 31.7 g/dL (30-55) 01/01/24 12:59 RDW 13.2 % (12.1-15.1) 01/01/24 12:59 Plt Count 276 10^3/cmm (157-399) 01/01/24 12:59 MPV 9.8 fL (7.4-10.4) 01/01/24 12:59 Neut % (Auto) 63.0 % 01/01/24 12:59 Lymph % (Auto) 25.9 % 01/01/24 12:59 [place] % (Auto) 7.4 % 01/01/24 12:59 Eos % (Auto) 3.2 % 01/01/24 12:59 Baso % (Auto) 0.4 % 01/01/24 12:59 Neut # (Auto) 5.00 10^3/uL (1.8-7.7) 01/01/24 12:59 Lymph # (Auto) 2.1 10^3/uL (0.8-4.8) 01/01/24 12:59 [place] # (Auto) 0.6 10^3/uL (0.2-0.9) 01/01/24 12:59 Eos # (Auto) 0.3 10^3/uL (0.0-0.8) 01/01/24 12:59 Baso # (Auto) 0.0 10^3/uL (0.0-0.1) 01/01/24 12:59 Nucleated RBC % (auto) 0 % 01/01/24 12:59 Nucleated RBCs # 0.0 /100WBC 01/01/24 12:59 PT 14.10 SECONDS (12.1-14.9) 01/01/24 12:59 INR 1.05 (0.8-1.2) 01/01/24 12:59 APTT 28.8 SECONDS (23.9-36.7) 01/01/24 12:59 Sodium 134 mmol/L (136-145) L 01/01/24 12:59 Potassium 3.9 mmol/L (3.5-5.1) 01/01/24 12:59 Chloride 95 mmol/L (98-107) L 01/01/24 12:59 Carbon Dioxide 28 mmol/L (22-29) 01/01/24 12:59 Anion Gap 14.9 (5-19) 01/01/24 12:59 BUN 9 mg/dL (8-23) 01/01/24 12:59 Creatinine 0.7 mg/dL (0.5-0.9) 01/01/24 12:59 GFR Calculation Not Reportable 01/01/24 12:59 Glucose 213 mg/dL (65-115) H 01/01/24 12:59 Calculated Osmolality 283 mOsm/kg (285-295) L 01/01/24 12:59 Calcium 8.9 mg/dL (8.5-10.5) 01/01/24 12:59 Total Bilirubin 0.5 mg/dL (0.15-1.2) 01/01/24 12:59 AST 18 U/L (0-32) 01/01/24 12:59 ALT 10 U/L (0-33) 01/01/24 12:59 Alkaline Phosphatase 52 U/L (35-105) 01/01/24 12:59 C-Reactive Protein 3.0 mg/L (0.0-4.9) 01/01/24 12:59 Total Protein 7.2 g/dL (6.6-8.7) 01/01/24 12:59 Albumin 3.6 g/dL (3.5-5.2) 01/01/24 12:59 Globulin 3.6 g/dL (1.3-4.6) 01/01/24 12:59 Urine Color Yellow (Yellow) 01/01/24 11:06 Urine Appearance Clear (CLEAR) 01/01/24 11:06 Urine pH 7 (5-7) 01/01/24 11:06 Ur Specific [place] 1.000 (1.005-1.030) L 01/01/24 11:06 Urine Protein Neg (Negative) 01/01/24 11:06 Urine Glucose (UA) Norm (Normal) 01/01/24 11:06 Urine Ketones Negative (Negative) 01/01/24 11:06 Urine Blood Neg (Negative) 01/01/24 11:06 Urine Nitrate Negative (Negative) 01/01/24 11:06 Urine Bilirubin Neg (Negative) 01/01/24 11:06 Urine Urobilinogen Norm mg/dL (Negative) 01/01/24 11:06 Ur Leukocyte Esterase Negative (Negative) 01/01/24 11:06 Urine RBC 0-4 /hpf (0-2) H 01/01/24 11:06 Urine WBC 0-4 /hpf (0-5) H 01/01/24 11:06 Ur Squamous Epith Cells 0-4 /hpf (0-5) H 01/01/24 11:06 Amorphous Sediment Not Reportable 01/01/24 11:06 Urine Bacteria Trace /hpf (NONE) 01/01/24 11:06 All radiology interpretation(s) finalized by discharge Discharge Plan Discharge Patient Disposition: Admitted As Inpatient Clinical Impression: Cerebrovascular event Condition: Stable Coding Level of Care Code ED Certified Hyperbaric Technician for Chg Fwd Related Data Home Medications Medication Instructions Recorded Confirmed albuterol sulfate 2.5 mg/3 mL 2.5 mg inhalation Q4H PRN 05/04/19 11/12/23 (0.083 %) solution for nebulization albuterol sulfate 90 mcg/actuation 2 puff inhalation Q6H PRN 05/04/19 11/12/23 aerosol inhaler (ProAir HFA) atorvastatin 40 mg tablet 40 mg PO QDAY 05/04/19 11/12/23 ergocalciferol (vitamin D2) 1,250 50,000 unit PO .monthly 05/04/19 11/12/23 mcg (50,000 unit) capsule hydrochlorothiazide 12.5 mg tablet 25 mg PO QAM 05/04/19 11/12/23 insulin lispro protamine-lispro 10 unit SUBCUT DAILY 05/04/19 11/12/23 100 unit/mL (50-50) subcutaneous pen metformin 1,000 mg tablet 1,000 mg PO BID 05/04/19 11/12/23 nebulizers ##1 05/04/19 11/12/23 nebulizers #1 ea 05/04/19 11/12/23 omeprazole 20 mg capsule,delayed 20 mg PO QDAY 05/04/19 11/12/23 release amlodipine 5 mg tablet 5 mg PO DAILY 06/23/19 11/12/23 aspirin 325 mg tablet 325 mg PO DAILY 06/23/19 11/12/23 levothyroxine 50 mcg tablet 50 mcg PO DAILY 06/23/19 11/12/23 losartan 100 mg tablet 100 mg PO DAILY 06/23/19 11/12/23 Previous Rx's Medication Instructions Recorded meclizine 25 mg tablet 25 mg PO QID PRN dizziness #20 tabs 08/22/19 clobetasol 0.05 % topical cream 1 applic topical BID PSA rash #45 06/19/22 grams diclofenac sodium 1 % topical gel 2 g topical QID #100 grams 06/05/23 adalimumab 40 mg/0.8 mL See Rx Instructions .Route 11/12/23 subcutaneous syringe kit (Humira) .COMPLEX #2 ea prednisone 10 mg tablet See Rx Instructions .Route 11/12/23 .COMPLEX #30 tabs Allergies Allergy/AdvReac Type Severity Reaction Status Date / Time No Known Allergies Allergy Verified 11/12/23 11:52
[2024-01-01 13:06] LABS: Basophils % 0.4 %; Eosinophils # 0.3 10^3/uL (0.0-0.8); Eosinophils % 3.2 %; Hematocrit 40.4 % (36-47); Lymphocytes # 2.1 10^3/uL (0.8-4.8); Lymphocytes % 25.9 %; Mean Corpuscular HGB Conc 31.7 g/dL (30-55); Mean Corpuscular Hemoglobin 28.4 pg (27-33); Mean Corpuscular Volume 89.8 fl (85-98); Mean Platelet Volume 9.8 fL (7.4-10.4); Monocytes # 0.6 10^3/uL (0.2-0.9); Monocytes % 7.4 %; Nucleated Red Blood Cells % 0 %; Platelet Count 276 10^3/cmm (157-399); Red Cell Distribution Width 13.2 % (12.1-15.1); White Blood Count 7.93 10^3/uL (3.29-11.43)
[2024-01-01 13:17] LABS: INR 1.05 (0.8-1.2)
[2024-01-01 13:18] LABS: Partial Thromboplastin Time 28.8 SECONDS (23.9-36.7)
[2024-01-01 13:22] LABS: Alanine Aminotransferase 10 U/L (0-33); Albumin Level 3.6 g/dL (3.5-5.2); Alkaline Phosphatase 52 U/L (35-105); Anion Gap 14.9 (5-19); Aspartate Amino Transferase 18 U/L (0-32); Blood Urea Nitrogen 9 mg/dL (8-23); Calcium 8.9 mg/dL (8.5-10.5); Carbon Dioxide 28 mmol/L (22-29); Chloride 95 mmol/L (98-107); Creatinine Clr Calc Pharmacy 61.1764; Globulin 3.6 g/dL (1.3-4.6); Glucose 213 mg/dL (65-115); Osmolality Calculated 283 mOsm/kg (285-295); Potassium 3.9 mmol/L (3.5-5.1); Sodium 134 mmol/L (136-145); Total Bilirubin 0.5 mg/dL (0.15-1.2); Total Protein 7.2 g/dL (6.6-8.7)
[2024-01-01 13:45] LABS: Add Urine Culture? No; Bacteria Urine TRACE /hpf; Bilirubin Urine Neg (Negative); Blood Urine Neg (Negative); Glucose Urine UA Norm (Normal); Ketones Urine Negative (Negative); Leukocyte Esterase Urine Negative (Negative); Nitrate Urine Negative (Negative); Protein Urine Neg (Negative); RBC Urine 0-4 /hpf (0-2); Squamous Epithelial Cell Urine 0-4 /hpf (0-5); Urine Appearance Clear (CLEAR); Urine Color Yellow (Yellow); Urobilinogen Urine Norm (Negative); WBC Urine 0-4 /hpf (0-5); pH Urine 7 (5-7)
--- NOTE | 2024-01-01 13:46 | CT_ITS ---
WS: [id number] CT ANGIOGRAM CEREBRAL AND CAROTID ARTERIES HISTORY: Possible stroke TECHNIQUE: CT angiogram is performed of the carotid and cerebral arteries. During arterial injection imaging is obtained from the skull vertex to the aortic arch in 1.25 mm imaging. Coronal and sagittal reformats are submitted. Additional multi planar reformats of the carotid and cerebral arteries are submitted, MIP imaging also reviewed. NASCET criteria utilized. [facility] CT [email or web address] at least one of these dose optimization techniques: automated exposure control; mA and/or kV adjust ment per patient size (includes targeted exams where dose is matched to clinical indication); or iter ative reconstruction. CONTRAST: Omnipaque 350; 100 mL IV. DLP: 532.12 mGy.cm COMPARISON: No similar studies. Carotid Angiogram: Right carotid: Common carotid artery: Moderate calcified plaque at the origin of the innominate from the aorta. Ther e is at least 50% stenosis of the innominate. Mild plaque at the origin of the RIGHT common carotid a rtery. Increasing plaque in the distal cervical carotid artery. Internal carotid artery: Moderate plaque at the origin of the ICA with stenosis estimated near 50%. External carotid artery: Patent. Left carotid: Common carotid artery: Moderate calcified plaque at the origin of the LEFT common carotid artery from the arch. Percent stenosis is difficult to estimate due to breathing motion artifact and artifact fr om incoming contrast. Internal carotid artery: Calcified plaque throughout the cervical carotid artery. Increasing plaque i n the bifurcation. There is dense calcified plaque in the proximal LEFT ICA with stenosis estimated a t 70%. External carotid artery: Plaque in the proximal external carotid artery no occlusion. Right vertebral artery: Small caliber RIGHT vertebral artery. No occlusion. Left vertebral artery: Dominant LEFT vertebral artery with scattered plaque. Subclavian arteries: Atherosclerotic plaque proximally but no high-grade stenosis. Upper thorax: Severe atherosclerotic plaque in the thoracic aortic arch extending into the proximal g reat vessels. Thyroid gland: Normal. Osseous structures: Severe degenerative changes throughout the cervical spine and upper thoracic spin e. Osteopenia. CEREBRAL ANGIOGRAM: Intracranial vertebral arteries: Dominant LEFT vertebral artery. Distal RIGHT vertebral artery is als o patent. Basilar artery: No significant stenosis or occlusion. No aneurysm. Intracranial Internal carotid arteries: LEFT ICA is smaller caliber than the RIGHT. Increasing plaque through the skull base and cavernous carotid arteries. Stenoses estimated near 60%. No occlusion. Middle cerebral arteries: Slightly smaller caliber middle cerebral arteries on the LEFT. No thrombus or occlusion. Anterior cerebral arteries and ACOM: Normal. Posterior cerebral arteries and PCOM's: Normal. Dural venous sinuses are normally enhancing. Mastoid air cells: Normal. Paranasal sinuses: Normal. Calvarium: Normal. CT/CT angio headneck* [id number] IMPRESSION: 1. RIGHT cervical carotid artery stenosis estimated at 50%. 2. LEFT cervical carotid artery stenosis estimated at 70%. 3. Dense calcified plaque at the origin of the great vessels from the aortic a rch. Stenosis is difficult to quantify due to the artifact through the upper ch est. Suspect component of stenosis involving the origin of the LEFT common connell tid artery. There is additional plaque in the subclavian arteries and the innom inate artery. 4. Cavernous carotid arteries with dense calcified plaque and stenosis near 60 %. 5. Smaller caliber LEFT middle cerebral artery. No occlusion.
--- NOTE | 2024-01-01 15:40 | P.CONIM_ITS ---
Providers/Reason For Consult 2 Consulting Physician/Specialty*: Arturo Tan MD neurology and epilepsy Reason for Consult*: Left subcortical versus cortical infarction manifested as right-sided weakness clumsiness and numbness and tingling Primary Care Provider: Emily Mercer MD History of Present Illness History of Present Illness Mini Hair is a 78 year old female with a history of type 2 diabetes mellitus, and osteoarthritis of the knees. On 12/31/2023 the patient stated that she woke up that morning and was experiencing right upper extremity weakness and clumsiness in the right upper extremity as well as difficulty controlling the right arm secondary to weakness and decreased dexterity. The patient stated that she did not seek immediate medical attention since she thought that she had slept on her arm and the symptoms were improved. The patient stated that she went to bed the night of 12/31/2023 and when she woke up the morning of 01/01/2024 the right upper extremity symptoms were unchanged and she was also experiencing right facial numbness and tingling as well as tingling in the right upper extremity. The patient stated that approximately 1 hour later she noticed she was also experiencing weakness in the right leg. As a result, the patient was brought to [facility] emergency department. Since the patient's last known well could not be determined since the patient stated that she woke up the morning of 12/31/2023 with right arm weakness with difficulty using the right upper extremity and did not seek immediate medical attention and on the morning of 01/01/2024 she woke up with continued right upper extremity weakness and decreased dexterity as well as right facial numbness and tingling, right upper extremity numbness and tingling and 1 hour later after awakening she also reported right leg weakness. Therefore the patient was outside of the intravenous thrombolytic window as well as for arterial embolectomy if large vessel occlusion was discovered. The patient denied any previous strokes. NIH score = 1 (secondary to right upper extremity clumsiness/decreased dexterity) Serum glucose [address] 01/01/2024 revealed no acute findings. Impression: Mild atrophy and mild small vessel disease. CT angiogram of head and neck ordered. Results pending at the time of this dictation. Drug allergies: None Current medications: Adalimumab 40 mg per 0.8 mL subcutaneously as directed Albuterol 2.5 mg per 3 mL to use as directed every 4 hours Norvasc 5 mg p.o. daily Aspirin 325 mg p.o. daily Lipitor 40 mg p.o. daily Diclofenac 1% topical gel 2 g to be applied 4 times a day Vitamin D2 50,000 international units p.o. monthly Hydrochlorothiazide 12.5 mg to 25 mg p.o. daily Insulin 10 units subcutaneously daily Synthroid 50 mcg p.o. daily Losartan 100 mg p.o. daily Antivert 25 mg p.o. 4 times daily, as needed Metformin 1000 mg p.o. twice daily Omeprazole 20 mg p.o. daily Prednisone 10 mg tablets to use as directed Past medical history: Osteoarthritis of the knees Type 2 diabetes mellitus Hypertension Hypothyroidism Vitamin D deficiency Habits: The patient smoked 1-1/2 packs/day for 40 years but quit in 2003. The patient denied alcohol use or other drug use. Family history: Remarkable for a mother who experienced a stroke at age 76. Her mother at age 78 years of age Social history: Patient lives alone in [place] but has family members nearby that visit frequently. Review of Systems 2 General: Reports: 10 or more systems reviewed and unremarkable except in HPI and below Medications/Allergies Home Medications Medication Instructions Recorded Confirmed Last Taken Type albuterol sulfate 2.5 mg/3 mL 2.5 mg inhalation Q4H PRN 05/04/19 11/12/23 Unknown History (0.083 %) solution for nebulization albuterol sulfate 90 mcg/actuation 2 puff inhalation Q6H PRN 05/04/19 11/12/23 Unknown History aerosol inhaler (ProAir HFA) atorvastatin 40 mg tablet 40 mg PO QDAY 05/04/19 11/12/23 Unknown History ergocalciferol (vitamin D2) 1,250 50,000 unit PO .monthly 05/04/19 11/12/23 Unknown History mcg (50,000 unit) capsule hydrochlorothiazide 12.5 mg tablet 25 mg PO QAM 05/04/19 11/12/23 Unknown History insulin lispro protamine-lispro 10 unit SUBCUT DAILY 05/04/19 11/12/23 Unknown History 100 unit/mL (50-50) subcutaneous pen metformin 1,000 mg tablet 1,000 mg PO BID 05/04/19 11/12/23 Unknown History nebulizers ##1 05/04/19 11/12/23 Unknown History nebulizers #1 ea 05/04/19 11/12/23 Unknown History omeprazole 20 mg capsule,delayed 20 mg PO QDAY 05/04/19 11/12/23 Unknown History release amlodipine 5 mg tablet 5 mg PO DAILY 06/23/19 11/12/23 Unknown History aspirin 325 mg tablet 325 mg PO DAILY 06/23/19 11/12/23 Unknown History levothyroxine 50 mcg tablet 50 mcg PO DAILY 06/23/19 11/12/23 Unknown History losartan 100 mg tablet 100 mg PO DAILY 06/23/19 11/12/23 Unknown History meclizine 25 mg tablet 25 mg PO QID PRN dizziness #20 tabs 08/22/19 11/12/23 Unknown Rx clobetasol 0.05 % topical cream 1 applic topical BID PSA rash #45 06/19/22 11/12/23 Unknown Rx grams diclofenac sodium 1 % topical gel 2 g topical QID #100 grams 06/05/23 11/12/23 Unknown Rx adalimumab 40 mg/0.8 mL See Rx Instructions .Route 11/12/23 11/12/23 Unknown Rx subcutaneous syringe kit (Humira) .COMPLEX #2 ea prednisone 10 mg tablet See Rx Instructions .Route 11/12/23 11/12/23 Unknown Rx .COMPLEX #30 tabs Allergies Allergy/AdvReac Type Severity Reaction Status Date / Time No Known Allergies Allergy Verified 11/12/23 11:52 PFSH Acute 2 PFSH: Medical History OA (osteoarthritis) of knee Psoriatic arthritis Psoriasis Osteoarthritis Insulin dependent diabetes mellitus COPD (chronic obstructive pulmonary disease) Hypertension High risk medication use Immunization counseling Surgical History H/O tubal ligation Family History Other Cancer Heart disease Hypertension Denies family history of Rheumatoid arthritis Lupus Social History Smoking and tobacco/nicotine status: former use of tobacco/nicotine Alcohol intake: never Substance/Drug Use: unknown Vitals/I&O/Wt Last Vital Signs Temp 97.8 F 01/01/24 12:46 Pulse 75 01/01/24 14:14 Resp 16 01/01/24 14:14 BP 111/57 01/01/24 14:14 Pulse Ox 93 01/01/24 14:14 O2 Del Method Room Air 01/01/24 14:14 Weight last 48 hrs Weight 197 lb Physical Exam 2 Narrative: NIH score = 1 (secondary to right upper extremity clumsiness/decreased dexterity) Serum glucose [address] 01/01/2024 revealed no acute findings. Impression: Mild atrophy and mild small vessel disease. Blood pressure 115/57 heart rate 72 O2 saturation 96% on room air The patient is alert and oriented x 3. Speech fluent. Head normocephalic except for masslike lesion on the scalp in the forehead region of either lipoma or other soft tissue lesion Pupils 3 to 4 mm round reactive to light and accommodation. Extraocular movements intact. Visual fowler full via confrontation. There were no nystagmus on extraocular movements. Motor testing essentially 5/5 in the upper and lower extremities although patient displays some mild dysmetria in the right upper extremity with decreased dexterity in the right upper extremity. [id number] revealed no significant ataxia although the patient perform the task slower with the right hand compared to the left. [id number] maneuver revealed no ataxia in the lower extremities. Patient did have some difficulty performing [id number] maneuver with the left leg secondary to history of arthritic left knee which is a chronic issue. Deep tendon reflexes revealed plantar responses bilaterally. There was no extinction on double sensory stimulation. Throat clear. Lungs revealed no obvious wheezing. Heart regular rhythm and rate. Extremities were negative for cyanosis. Patient did display signs of arthritic knees bilaterally with decreased range of motion and some swelling in the left knee which the patient reported is chronic. Data 01/01/24 12:59 01/01/24 12:59 A&P Assessment and plan (1) Cerebral infarction, left hemisphere: Impression: 1. Clinical history and examination suggestive of left subcortical versus left cerebral infarction manifested as right-sided weakness (face arm and leg) and right upper extremity decreased dexterity/clumsiness. Since the patient's symptoms began on 12/31/2023 when the patient woke up the morning of 12/31/2023 with right upper extremity weakness and clumsiness which continued and the following morning the patient woke up on 01/01/2024 with right face and right upper extremity weakness and numbness and tingling followed by incorporation of the right leg 1 hour later. On 12/31/2023 the patient stated that she woke up that morning and was experiencing right upper extremity weakness and clumsiness in the right upper extremity as well as difficulty controlling the right arm secondary to weakness and decreased dexterity. The patient stated that she did not seek immediate medical attention since she thought that she had slept on her arm and the symptoms were improved. The patient stated that she went to bed the night of 12/31/2023 and when she woke up the morning of 01/01/2024 the right upper extremity symptoms were unchanged and she was also experiencing right facial numbness and tingling as well as tingling in the right upper extremity. The patient stated that approximately 1 hour later she noticed she was also experiencing weakness in the right leg. As a result, the patient was brought to [facility] emergency department. Since the patient's last known well could not be determined since the patient stated that she woke up the morning of 12/31/2023 with right arm weakness with difficulty using the right upper extremity and did not seek immediate medical attention and on the morning of 01/01/2024 she woke up with continued right upper extremity weakness and decreased dexterity as well as right facial numbness and tingling, right upper extremity numbness and tingling and 1 hour later after awakening she also reported right leg weakness. Therefore the patient was outside of the intravenous thrombolytic window as well as for arterial embolectomy if large vessel occlusion was discovered. 2. History of hyperlipidemia 3. Type 2 diabetes mellitus 4. Hypothyroidism 5. Osteoarthritis of the knees left side greater than right Plan: 1. CT angiogram of the head and neck to assess for large vessel occlusion 2. Recommend obtaining 2D echocardiogram with bubble study to assess for embolic source for stroke 3. Recommend admission and cardiac telemetry monitoring to assess for arrhythmias 4. Recommend obtaining noncontrast head MRI to further assess for left hemisphere versus left subcortical infarction since noncontrast head CT was negative for obvious stroke although clinically patient's symptoms are suggestive of either a left subcortical versus cortical infarction since 12/31/2023 4a. Recommend increasing Lipitor to 80 mg p.o. q. evening 5. Recommend decreasing aspirin from 325 mg p.o. every morning to 81 mg p.o. every morning with food 6. Recommend adding Plavix 75 mg p.o. every morning with food 7. Occupational therapy, physical therapy and speech therapy consults 8. Give patient and patient's family stroke pamphlet 9. Neurochecks and vital signs per NIH stroke protocol 10. Fall precautions Consult Attestations 2 Medical Necessity Statement: The patient was evaluated by neurology for clinical signs suggestive of right subcortical versus cortical infarction manifested as right sided weakness and decreased dexterity in the right upper extremity Coding Level of Care Code 33219 Diagnoses Cerebral infarction, left hemisphere I63.9
--- NOTE | 2024-01-01 15:40 | P.HP_ITS ---
Providers/Chief Complaint 2 Primary Care Provider: Emily Mercer MD Chief Complaint: TIA History of Present Illness Mini Hair is a 78 year old female present to the hospital for chief complaint of right-sided facial numbness, right upper and lower extremity weakness. Patient is stating that she was missing symptoms of right-sided weakness 24 hours before her arrival in the ER as well, patient is stating that when she was lifting her right arm it was falling right on her face as if she was trying to hit herself with her own hand. She has been noticing some clumsiness of her right side as well. She is denying previous history of stroke, CHF or myopathy. At the time of evaluation patient is stating that she is feeling better She is getting an echo She is currently hemodynamically stable Evaluated by neurologist Recommended observation and finishing the workup for stroke Review of Systems 2 Const: Denies: fever(s) Eyes: Denies: change in vision ENMT: Denies: throat pain Card: Denies: chest pain Resp: Reports: dyspnea GI: Denies: abdominal pain : Denies: flank pain Musc: Denies: neck pain Medications/Allergies Home Medications Medication Instructions Recorded Confirmed Last Taken Type albuterol sulfate 2.5 mg/3 mL 2.5 mg inhalation Q4H PRN 05/04/19 11/12/23 Unknown History (0.083 %) solution for nebulization albuterol sulfate 90 mcg/actuation 2 puff inhalation Q6H PRN 05/04/19 11/12/23 Unknown History aerosol inhaler (ProAir HFA) atorvastatin 40 mg tablet 40 mg PO QDAY 05/04/19 11/12/23 Unknown History ergocalciferol (vitamin D2) 1,250 50,000 unit PO .monthly 05/04/19 11/12/23 Unknown History mcg (50,000 unit) capsule hydrochlorothiazide 12.5 mg tablet 25 mg PO QAM 05/04/19 11/12/23 Unknown History insulin lispro protamine-lispro 10 unit SUBCUT DAILY 05/04/19 11/12/23 Unknown History 100 unit/mL (50-50) subcutaneous pen metformin 1,000 mg tablet 1,000 mg PO BID 05/04/19 11/12/23 Unknown History nebulizers ##1 05/04/19 11/12/23 Unknown History nebulizers #1 ea 05/04/19 11/12/23 Unknown History omeprazole 20 mg capsule,delayed 20 mg PO QDAY 05/04/19 11/12/23 Unknown History release amlodipine 5 mg tablet 5 mg PO DAILY 06/23/19 11/12/23 Unknown History aspirin 325 mg tablet 325 mg PO DAILY 06/23/19 11/12/23 Unknown History levothyroxine 50 mcg tablet 50 mcg PO DAILY 06/23/19 11/12/23 Unknown History losartan 100 mg tablet 100 mg PO DAILY 06/23/19 11/12/23 Unknown History meclizine 25 mg tablet 25 mg PO QID PRN dizziness #20 tabs 08/22/19 11/12/23 Unknown Rx clobetasol 0.05 % topical cream 1 applic topical BID PSA rash #45 06/19/22 11/12/23 Unknown Rx grams diclofenac sodium 1 % topical gel 2 g topical QID #100 grams 06/05/23 11/12/23 Unknown Rx adalimumab 40 mg/0.8 mL See Rx Instructions .Route 11/12/23 11/12/23 Unknown Rx subcutaneous syringe kit (Humira) .COMPLEX #2 ea prednisone 10 mg tablet See Rx Instructions .Route 11/12/23 11/12/23 Unknown Rx .COMPLEX #30 tabs Allergies Allergy/AdvReac Type Severity Reaction Status Date / Time No Known Allergies Allergy Verified 11/12/23 11:52 PFSH Acute 2 PFSH: Medical History OA (osteoarthritis) of knee Psoriatic arthritis Psoriasis Osteoarthritis Insulin dependent diabetes mellitus COPD (chronic obstructive pulmonary disease) Hypertension High risk medication use Immunization counseling Surgical History H/O tubal ligation Family History Other Cancer Heart disease Hypertension Denies family history of Rheumatoid arthritis Lupus Social History Smoking and tobacco/nicotine status: former use of tobacco/nicotine Alcohol intake: never Substance/Drug Use: unknown Vitals/I&O/Wt Last Vital Signs Temp 97.8 F 01/01/24 12:46 Pulse 75 01/01/24 14:14 Resp 16 01/01/24 14:14 BP 111/57 01/01/24 14:14 Pulse Ox 93 01/01/24 14:14 O2 Del Method Room Air 01/01/24 14:14 Weight last 48 hrs Weight 89.358 kg Physical Exam 2 Narrative: Right-sided weakness Numbness around right side of her face No facial droop Awake and alert no slurring of speech Hemodynamically stable Euvolemic Morbidly obese Currently room air Pleasant cooperative Nonfocal neuroexam GCS 15 Data 01/01/24 12:59 01/01/24 12:59 A&P Assessment and plan (1) Psoriatic arthritis: (2) OA (osteoarthritis) of knee: Qualifiers: Osteoarthritis type: primary Laterality: bilateral Qualified Code(s): M17.0 - Bilateral primary osteoarthritis of knee (3) Cerebrovascular event: (4) Cerebral infarction, left hemisphere: Plan Left cortical infarct related right-sided symptoms Patient experiencing right-sided facial numbness with extremity weakness Appreciate neuro recommendations I will request echo study with bubble Check B12 and TSH Patient is diabetic Will keep her on consistent carb diet with sliding scale She does not have any slurring of speech my suspicion for aspiration is low at this time Will request PT and OT I will start patient on aspirin and Plavix and increase the dose of atorvastatin to 80 mg Full code Admit to [facility] Frequent neurochecks Monitor heart rhythm on telemetry Permissive hypertension Would only use losartan, hold metoprolol Continue levothyroxine Attestations 2 Medical Necessity Statement*: Anticipating discharge within 48 hours Diagnoses Psoriatic arthritis L40.50 Primary osteoarthritis of both knees M17.0 Osteoarthritis type: primary Laterality: bilateral Cerebrovascular event I63.9 Cerebral infarction, left hemisphere I63.9
--- NOTE | 2024-01-01 16:08 | USCV_ITS ---
Mini Hair Age: 78 Gender: F : 1945 Exam Date: 01/01/2024 18:06 Ordering Phys: Mare Jett MD Technologist: MINA [place]am [place] [facility] [place]ication: cva, HTN, DM, COPD. No history of cardiac intervention per patient. BUBBLE STUDY IS ORDERED. BP: 186 / 154 HR: 68 Rhythm: Sinus Technical Quality: Adequate MEASUREMENTS (Male / Female) Normal Values 2D ECHO LV Diastolic Diameter PLAX 3.6 cm 4.2 - 5.9 / 3.9 - 5.3 cm IVS Diastolic Thickness 1.9 cm 0.6 - 1.0 / 0.6 - 0.9 cm IVS Systolic Thickness 2.0 cm LVPW Diastolic Thickness 1.4 cm 0.6 - 1.0 / 0.6 - 0.9 cm LVPW Systolic Thickness 2.1 cm LVOT Diameter 1.9 cm LV Ejection Fraction 2D Teich 52.8 % LV Ejection Fraction MOD 4C 58.9 % LV Ejection Fraction MOD 2C 56.8 % LV Ejection Fraction 2C AL 57.1 % LA Diameter 3.5 cm Aorta at Sinotubular Diameter 3.5 cm IVC Diameter 1.0 cm M-MODE LA Ao Ratio MM 1.1 AV Cusp Separation MM 1.9 cm DOPPLER AV Peak Velocity 117.0 cm/s LVOT Peak Velocity 96.0 cm/s AV Area Cont Eq vti 2.5 cm squared AV Area Cont Eq pk 2.4 cm squared MV Peak Velocity 134.0 cm/s MV Area PHT 2.1 cm squared Mitral E to A Ratio 0.6 TV Peak E Velocity 49.0 cm/s Right Atrial Pressure 3.0 mmHg PV Peak Velocity 92.0 cm/s FINDINGS Left Ventricle Left ventricle is normal in size. LV systolic function is normal with EF of 55-60%. No regional wall motion abnormalities are seen. Grade 1 diastolic dysfunction Right Ventricle Normal in size and function Right Atrium Normal in size. Bubble study does not demonstrate intracardiac shunting. Left Atrium Normal in size Mitral Valve Moderate to severe mitral annular calcification. Mild mitral regurgitation. Aortic Valve Aortic valve is thickened. No significant stenosis. Tricuspid Valve Mild tricuspid regurgitation. RVSP is normal. Pulmonic Valve Not well visualized Pericardium Normal Aorta Grossly normal IVC Normal in size CONCLUSIONS LV systolic function is normal with EF of 55 to 60%. Grade 1 diastolic dysfunction. Bubble study does not demonstrate inter-atrial shunting. Mild mitral regurgitation Mild tricuspid regurgitation Compared to prior echocardiogram from 2019, no significant changes are seen. Leonides Siddiqui MD (Electronically Signed) Final Date: 02 January 2024 08:47 S
[2024-01-01 20:41] LABS: Glucose Point of Care 195 mg/dL (70-110)
[2024-01-01 20:56] LABS: Thyroid Stimulating Hormone 0.82 uIU/mL (0.27-4.20)
[2024-01-01] MEDS: insulin lispro 100 unit/1 mL SUBCUT (20:56)
[2024-01-02 00:23] LABS: Vitamin B12 313 pg/mL (232-1245)
[2024-01-02 00:26] VITALS: PULSE 75; RESP 18; O2SAT 93
[2024-01-02 03:50] LABS: Anion Gap 12.8 (5-19); Blood Urea Nitrogen 12 mg/dL (8-23); Carbon Dioxide 31 mmol/L (22-29); Chloride 98 mmol/L (98-107); Creatinine Clr Calc Pharmacy 59.8269; Glucose 164 mg/dL (65-115); Magnesium 1.6 mg/dL (1.7-2.3); Osmolality Calculated 289 mOsm/kg (285-295); Potassium 3.8 mmol/L (3.5-5.1); Sodium 138 mmol/L (136-145)
[2024-01-02 04:00] VITALS: BP 120/69; PULSE 66; RESP 17; TEMP 36.7; O2SAT 90
[2024-01-02 05:54] VITALS: PULSE 70
[2024-01-02 06:18] LABS: Glucose Point of Care 166 mg/dL (70-110)
[2024-01-02] MEDS: clopidogrel 75 mg Tablet PO (08:13)
[2024-01-02] MEDS: levothyroxine 50 mcg Tablet PO (08:13)
[2024-01-02] MEDS: atorvastatin 40 mg Tablet 80 MG PO (08:13)
[2024-01-02] MEDS: insulin lispro 100 unit/1 mL SUBCUT ×2 (08:14→12:50)
[2024-01-02] MEDS: aspirin 81 mg EC Tablet PO (08:14)
[2024-01-02 08:25] VITALS: BP 156/76; PULSE 71; RESP 16; TEMP 36.6; O2SAT 90
--- NOTE | 2024-01-02 08:55 | PM.DCS ---
Discharge Providers Date of Admission: 01/01/24 17:12 Date of Discharge: January 02, 2024 Attending Provider at Admission: Mare Jett MD Attending Provider at Discharge: Mare Jett MD Primary Care Provider: Emily Mercer MD Diagnoses at Discharge Discharge Diagnosis (1) Psoriatic arthritis: Status: Acute (2) OA (osteoarthritis) of knee: Status: Acute Qualifiers: Osteoarthritis type: primary Laterality: bilateral Qualified Code(s): M17.0 - Bilateral primary osteoarthritis of knee (3) Cerebrovascular event: Status: Acute (4) Cerebral infarction, left hemisphere: Status: Acute Reason for Visit Reason for Visit: TIA Hospital Course Hospital Course 78-year-old female who was admitted for management evaluation of right-sided weakness, Dr. Tan evaluate the patient and recommended stroke workup, CT head and neck consistent with carotid disease, remained in sinus rhythm echo showed grade 1 diastolic dysfunction no cardiac shunt identified, patient also has low vitamin B12, Dr. Tan recommended addition of aspirin 81 mg along with Plavix for 21 days and then continue aspirin, patient will increase the dose of atorvastatin to 80 mg, she will get referral to see vascular surgeon, family prefers [place] instead of [place], she has significant carotid and aortic arch plaque formation he will be considered high risk for recurrent stroke, preferably she should go for intervention in next 2 to 3 weeks. We have allowed permissive hypertension discontinue losartan trouble during hospitalization blood pressure remains 120 systolic diastolic around 70s.mmhg CT head and neck carotid disease: RIGHT cervical carotid artery stenosis estimated at 50%. 2. LEFT cervical carotid artery stenosis estimated at 70%. Physical Exam Narrative: Sinus rhythm S1, S2 Hemodynamically stable Currently on room air Blood pressure stable Discharge Data Studies Completed and Pending Completed Studies During Hospitalization Category Date Time Status CT head wo con* [id number] Stat Cat Scan 01/01/24 12:48 Completed CTA head neck [CT angio headneck* [id number]] Stat Cat Scan 01/01/24 13:46 Completed CV. echo lmt wo/w bubble [id number] Stat Ultrasound 01/01/24 16:08 Completed Radiology Impressions Head CT 01/01/24 12:48 IMPRESSION: 1. No acute intracranial hemorrhage or edema. 2. Mild atrophy and mild small vessel disease. Head/Neck CTA 01/01/24 13:46 IMPRESSION: 1. RIGHT cervical carotid artery stenosis estimated at 50%. 2. LEFT cervical carotid artery stenosis estimated at 70%. 3. Dense calcified plaque at the origin of the great vessels from the aortic arch. Stenosis is difficult to quantify due to the artifact through the upper chest. Suspect component of stenosis involving the origin of the LEFT common carotid artery. There is additional plaque in the subclavian arteries and the innominate artery. 4. Cavernous carotid arteries with dense calcified plaque and stenosis near 60%. 5. Smaller caliber LEFT middle cerebral artery. No occlusion. Laboratory Results WBC 7.93 10^3/uL (3.29-11.43) 01/01/24 12:59 RBC 4.50 10^6/uL (3.85-5.65) 01/01/24 12:59 Hgb 12.80 g/dL (11.27-16.99) 01/01/24 12:59 Hct 40.4 % (36-47) 01/01/24 12:59 MCV 89.8 fl (85-98) 01/01/24 12:59 MCH 28.4 pg (27-33) 01/01/24 12:59 MCHC 31.7 g/dL (30-55) 01/01/24 12:59 RDW 13.2 % (12.1-15.1) 01/01/24 12:59 Plt Count 276 10^3/cmm (157-399) 01/01/24 12:59 MPV 9.8 fL (7.4-10.4) 01/01/24 12:59 Neut % (Auto) 63.0 % 01/01/24 12:59 Lymph % (Auto) 25.9 % 01/01/24 12:59 Blair % (Auto) 7.4 % 01/01/24 12:59 Eos % (Auto) 3.2 % 01/01/24 12:59 Baso % (Auto) 0.4 % 01/01/24 12:59 Neut # (Auto) 5.00 10^3/uL (1.8-7.7) 01/01/24 12:59 Lymph # (Auto) 2.1 10^3/uL (0.8-4.8) 01/01/24 12:59 Blair # (Auto) 0.6 10^3/uL (0.2-0.9) 01/01/24 12:59 Eos # (Auto) 0.3 10^3/uL (0.0-0.8) 01/01/24 12:59 Baso # (Auto) 0.0 10^3/uL (0.0-0.1) 01/01/24 12:59 Nucleated RBC % (auto) 0 % 01/01/24 12:59 Nucleated RBCs # 0.0 /100WBC 01/01/24 12:59 PT 14.10 SECONDS (12.1-14.9) 01/01/24 12:59 INR 1.05 (0.8-1.2) 01/01/24 12:59 APTT 28.8 SECONDS (23.9-36.7) 01/01/24 12:59 Sodium 138 mmol/L (136-145) 01/02/24 02:31 Potassium 3.8 mmol/L (3.5-5.1) 01/02/24 02:31 Chloride 98 mmol/L (98-107) 01/02/24 02:31 Carbon Dioxide 31 mmol/L (22-29) H 01/02/24 02:31 Anion Gap 12.8 (5-19) 01/02/24 02:31 BUN 12 mg/dL (8-23) 01/02/24 02:31 Creatinine 0.7 mg/dL (0.5-0.9) 01/02/24 02:31 GFR Calculation Not Reportable 01/02/24 02:31 Glucose 164 mg/dL (65-115) H 01/02/24 02:31 POC Glucose 166 mg/dL (70-110) H 01/02/24 06:12 Calculated Osmolality 289 mOsm/kg (285-295) 01/02/24 02:31 Calcium 9.0 mg/dL (8.5-10.5) 01/02/24 02:31 Magnesium 1.6 mg/dL (1.7-2.3) L 01/02/24 02:31 Total Bilirubin 0.5 mg/dL (0.15-1.2) 01/01/24 12:59 AST 18 U/L (0-32) 01/01/24 12:59 ALT 10 U/L (0-33) 01/01/24 12:59 Alkaline Phosphatase 52 U/L (35-105) 01/01/24 12:59 C-Reactive Protein 3.0 mg/L (0.0-4.9) 01/01/24 12:59 Total Protein 7.2 g/dL (6.6-8.7) 01/01/24 12:59 Albumin 3.6 g/dL (3.5-5.2) 01/01/24 12:59 Globulin 3.6 g/dL (1.3-4.6) 01/01/24 12:59 Vitamin B12 313 pg/mL (232-1245) 01/01/24 12:59 TSH 0.82 uIU/mL (0.27-4.20) 01/01/24 12:59 Urine Color Yellow (Yellow) 01/01/24 11:06 Urine Appearance Clear (CLEAR) 01/01/24 11:06 Urine pH 7 (5-7) 01/01/24 11:06 Ur Specific [place] 1.000 (1.005-1.030) L 01/01/24 11:06 Urine Protein Neg (Negative) 01/01/24 11:06 Urine Glucose (UA) Norm (Normal) 01/01/24 11:06 Urine Ketones Negative (Negative) 01/01/24 11:06 Urine Blood Neg (Negative) 01/01/24 11:06 Urine Nitrate Negative (Negative) 01/01/24 11:06 Urine Bilirubin Neg (Negative) 01/01/24 11:06 Urine Urobilinogen Norm mg/dL (Negative) 01/01/24 11:06 Ur Leukocyte Esterase Negative (Negative) 01/01/24 11:06 Urine RBC 0-4 /hpf (0-2) H 01/01/24 11:06 Urine WBC 0-4 /hpf (0-5) H 01/01/24 11:06 Ur Squamous Epith Cells 0-4 /hpf (0-5) H 01/01/24 11:06 Amorphous Sediment Not Reportable 01/01/24 11:06 Urine Bacteria Trace /hpf (NONE) 01/01/24 11:06 Vitals Last Vital Signs Temp 98.0 F 01/02/24 04:00 Pulse 70 01/02/24 05:54 Resp 17 01/02/24 04:00 BP 120/69 01/02/24 04:00 Pulse Ox 90 01/02/24 04:00 O2 Del Method Room Air 01/02/24 00:26 Discharge Plan Discharge Patient Disposition: Home Condition: Stable Prescriptions: New atorvastatin 40 mg Tablet 80 mg PO DAILY Qty: 90 3RF losartan 50 mg Tablet 50 mg PO DAILY Qty: 30 3RF aspirin 81 mg Tablet,Delayed Release (Dr/Ec) 81 mg PO DAILY Qty: 90 3RF clopidogrel 75 mg Tablet 75 mg PO DAILY Qty: 20 0RF cyanocobalamin (vitamin B-12) 1,000 mcg tablet 1,000 mcg PO DAILY Qty: 60 3RF Continued ergocalciferol (vitamin D2) 50,000 unit capsule 50,000 unit PO DIRECTED Rx Instructions: every 2 weeks albuterol sulfate 2.5 mg /3 mL (0.083 %) solution for nebulization 2.5 mg INHALATION Q4H PRN (Reason: SOB) (DME) nebulizers Misc See Rx Instructions .ROUTE .MEDSUPPLY Qty: 1 Patient Comments: tubing/mouthpiece Rx Instructions: As directed (DME) nebulizers Kit See Rx Instructions .ROUTE .MEDSUPPLY Qty: 1 Rx Instructions: As directed albuterol sulfate [ProAir HFA] 90 mcg/actuation HFA aerosol inhaler 2 puff INHALATION Q6H PRN (Reason: SOB) omeprazole 20 mg capsule,delayed release(DR/EC) 20 mg PO QDAY insulin lispro protamin-lispro 100 unit/mL (50-50) insulin pen 48 unit SUBCUT DAILY metformin 1,000 mg tablet 1,000 mg PO DAILY levothyroxine 50 mcg tablet 50 mcg PO DAILY clobetasol 0.05 % cream 1 applic TOPICAL BID Qty: 45 2RF diclofenac sodium 1 % gel 2 g TOPICAL QID Qty: 100 2RF Rx Instructions: apply to single elbow, wrist or hand; for hand includes palm/fingers/back of hand Humira 40 mg/0.8 mL syringe kit See Rx Instructions .ROUTE .COMPLEX Qty: 2 5RF Dose Instruction: INJECT 40 MG UNDER SKIN EVERY 14 DAYS Rx Instructions: INJECT 40 MG UNDER SKIN EVERY 14 DAYS meclizine 25 mg tablet 25 mg PO QID PRN (Reason: dizziness) Qty: 20 0RF Discontinued atorvastatin 40 mg tablet 40 mg PO QDAY aspirin 325 mg tablet 325 mg PO DAILY amlodipine 5 mg tablet 5 mg PO DAILY losartan 100 mg tablet 100 mg PO DAILY Discharge Orders: Discharge Order (Routine); Ordered 01/02/24 Ordered By: Mare Jett Referrals: Emily Mercer MD [Primary Care Provider] - Jarret Elder [Referring] - 2 weeks (carotid disease) Patient Instructions: Opioid Safety Discharge Attestations Time Spent in Discharge Care*: greater than 30 min Quality Metrics Clinical Quality Measures [ No reported AMI, CVA or VTE this stay] Coding Level of Care Code Acute Code for g Fwd Diagnoses Psoriatic arthritis L40.50 Primary osteoarthritis of both knees M17.0 Osteoarthritis type: primary Laterality: bilateral Cerebrovascular event I63.9 Cerebral infarction, left hemisphere I63.9
[2024-01-02 12:17] VITALS: BP 132/71; PULSE 87; RESP 16; TEMP 37.1; O2SAT 95
[2024-01-02 12:23] LABS: Glucose Point of Care 211 mg/dL (70-110)
== END 2024-01-02 12:50 | disposition home or self-care (01) ==
LOC: ER 15:17 → MEDSURG 21:00
PROVIDERS: Admitting Provider Internal Medicine; Emergency Provider Emergency Medicine; PCP Internal Medicine; Visit Provider Internal Medicine
DX: I63.9 Cerebral infarction, unspecified (principal); L40.50 Arthropathic psoriasis, unspecified; M17.0 Bilateral primary osteoarthritis of knee; Z79.4 Long term (current) use of insulin; J44.9 Chronic obstructive pulmonary disease, unspecified; I10 Essential (primary) hypertension; Z87.891 Personal history of nicotine dependence; E11.9 Type 2 diabetes mellitus without complications; E03.9 Hypothyroidism, unspecified; E55.9 Vitamin D deficiency, unspecified
CPT/HCPCS: 36415; 36416; 70450; 70496; 70498; 80048; 80053; 81001; 82607; 82962; 83735; 84443; 85025; 85610; 85730; 86140; 93005; 96372; 97110; 97116; 97161; 99285; C8924; G0378; J1815

== ENCOUNTER 2024-02-25 07:06 | Outpatient (CLI) | payer MEDICAID, SELFPAY ==
--- NOTE | 2024-02-25 | ECG_ITS ---
[employer] Research Test Date: 2024-02-25 Pat Name: Mini Hair Department: Room: Gender: Female Field Marketing Manager: : 1945 Requested By: Chelsea Catalan Order Number: [id number] Cole MD: Kassidy Frank M.D. Interpretive Statements Lung unchanged pre/post procedure; Intraprocedure shortess of breath; Symptoms resoled by discharge PROCEDURE: At the baseline, the EKG revealed normal sinus rhythm with normal ST Ts. Possible old inferior wall OH.. The baseline heart was 74 bpm with a blood pressue of 140/79 mm of Hg Lexiscan was infused over a period of 20 seconds. A total of 0.4 milligrams of Lexiscan was infused. The stress phase was continued for a total of 5 minutes. Heart rate at the end of the stress phase was 92 bpm with a blood pressure 142/78 mm of Hg. The EKG at the peak infusion revealed no significant changes. Sestamibi was injected 20 seconds after the Lexiscan infusion. Heart rate at the end of the recovery phase was 84 bpm with a blood pressure of 168/68 mm of Hg. CONCLUSION: 1. No significant EKG changes with the LexiScan infusion 2. No LexiScan induced chest pain or cardiac arrhythmia 3. Normal blood pressure and heart rate response 4. Sestamibi/sestamibi perfusion scan pending; see separate report. Electronically Signed On 02-29-2024 12:34:52 BANANA LOADER by Kassidy Frank M.D. [email or web address]
--- NOTE | 2024-02-25 07:13 | NMCV_ITS ---
NM hitesh perf SPECT r/s* [id number] Mini Hair Age: 78 Gender: F : 1945 Exam Date: 02/25/2024 07:13 Ordering Phys: Chelsea Catalan Technologist: DENNYS Thompson Exam Location: [facility] Indications: CP STRESS TEST Please see separate stress test report in [facility] for full findings IMAGE PROTOCOL Rest/Stress 1 Lexiscan Day Radiopharmaceutical Dose (mCi) Administration Site Administered by Rest: Tc-99m 10.1 IV Lavern Fabian, ORNAMENTAL METALWORK DESIGNER Sestamibi Stress:Tc-99m 32.8 IV Lavern Reneegle, ORNAMENTAL METALWORK DESIGNER Sestamibi Rest: 25-Feb-2024 60 Discovery 630 Stress: 25-Feb-2024 30 Discovery 630 0.4mg Lexiscan. Images obtained in supine and prone position. SPECT RESULTS Technical Quality: Good Raw Data Analysis: Normal Image Corrections: No attenuation or motion correction applied Summed Stress Score: 11 Summed Rest Score: 7 Summed Difference Score: 4 PERFUSION FINDINGS Moderate area of moderate to severely decreased tracer uptake involving the basal, mid and apical inferior, mid inferolateral and apical lateral septal regions. Some reversibility was noted in the inferior and inferolateral regions FUNCTIONAL RESULTS (calculated via Gated SPECT) Stress Image LV EF (%): 68 Stress EDV (mL):72 TID: 1.18 Stress ESV (mL):23 FUNCTIONAL FINDINGS: Segmental wall motion analysis revealing no gross wall motion abnormalities IMPRESSIONS 1. Myocardial perfusion imaging revealing moderate area of moderate to severely decreased aseptic involving the inferior, inferolateral lateral and apical septal regions with some significant reversibility in the inferior wall, suggesting myocardial scarring with significant ischemia in the distribution of the right coronary artery.(Summed stress score of 11 and a difference score of 4) 2. Normal LV ejection fraction of 68%. 3. LV wall motion analysis revealing no gross wall motion abnormalities. 4. Normal LV volume Elevated transient ischemic dilatation ratio also may suggest endocardial ischemia No similar previous studies are available for comparison Dr Kassidy Frank MD [facility] (Electronically Signed) Final Date: 25 February 2024 13:25 S
[2024-02-25 07:19] VITALS: BMI 32.4
[2024-02-25] MEDS: regadenoson 0.4 Mg/5 ml Syringe IVP (08:37)
[2024-02-25 08:47] VITALS: BP 168/68; PULSE 84
== END 2024-02-25 07:07 | disposition home or self-care (01) ==
PROVIDERS: PCP Internal Medicine; Visit Provider Clinical Nurse Specialist Adult Health
DX: Z01.818 Encounter for other preprocedural examination (principal); R94.39 Abnormal result of other cardiovascular function study; R06.02 Shortness of breath
CPT/HCPCS: 36415; 78452; 93017; 96374; A9500; J2785

== ENCOUNTER → 2024-04-27 09:44 | Outpatient (BNVA) | payer MEDICAID, SELFPAY | PROVIDERS: PCP Internal Medicine; Visit Provider Internal Medicine Rheumatology | DX: L40.9 Psoriasis, unspecified (principal); E11.9 Type 2 diabetes mellitus without complications; Z79.899 Other long term (current) drug therapy | CPT/HCPCS: 80076; 82565; 83036; 85025; 85651; 86140 ==

== ENCOUNTER → 2024-05-12 11:00 | Outpatient (BNVA) | payer MEDICAID, SELFPAY | PROVIDERS: PCP Internal Medicine; Visit Provider Internal Medicine Rheumatology | DX: L40.50 Arthropathic psoriasis, unspecified (principal); M17.0 Bilateral primary osteoarthritis of knee; Z79.899 Other long term (current) drug therapy; Z71.89 Other specified counseling; L40.9 Psoriasis, unspecified | CPT/HCPCS: 99214 ==

== ENCOUNTER 2024-06-09 14:26 | Emergency (ER) | payer MEDICAID, SELFPAY ==
--- NOTE | 2024-06-09 14:28 | CTR_ITS ---
PROCEDURE INFORMATION: Exam: CT Head Without Contrast Exam date and time: 06/09/2024 2:31 PM Age: 78 years old Clinical indication: Stroke-like symptoms; Altered mental status/memory loss; Additional info: Symptoms of acute stroke TECHNIQUE: Imaging protocol: Computed tomography of the head without contrast. Radiation optimization: All CT scans at this facility use at least one of these dose optimization techniques: automated exposure control; mA and/or kV adjustment per patient size (includes targeted exams where dose is matched to clinical indication); or iterative reconstruction. Other technique: STROKE PROTOCOL was implemented. COMPARISON: CT angio headneck* [id number] 01/01/2024 3:18 PM RADIATION DOSE METRICS: Total DLP (mGy-cm): 1251.87 FINDINGS: Brain: There is a 2.4 x 2.0 x 2.1 cm intraparenchymal hematoma in the right thalamus with rupture into the ventricles. There is mild transependymal edema anteriorly, greater on the right. There is mild diffuse cerebral atrophy. There is mild local mass effect in the region of the thalami. No transtentorial herniation, or cisternal effacement. There is mild leftward displacement of the septum pellucidum. Cerebral ventricles: There is a moderate volume of blood in lateral ventricles. 3rd and 4th ventricles are filled with blood. Lateral ventricles are mildly dilated, right greater than left. Pituitary gland and sella: Empty sella. Paranasal sinuses: The paranasal sinuses are clear. Mastoid air cells: The mastoid air cells are clear. Bones: The skull is intact. Soft tissues: There is an exophytic 15 x 14 mm calcified nodule in the left frontal scalp, similar to 01/01/2024. CT/CT head thrombolytic [id number] IMPRESSION: 1. Right thalamic intraparenchymal hematoma. 2. Diffuse intraventricular hemorrhage. 3. Mild dilation of the lateral ventricles and transependymal edema consistent with elevated intraventricular pressure. ASSESSMENT: ASPECTS ([place] Stroke Program Early CT Score) is 10.
--- NOTE | 2024-06-09 14:30 | ECG_ITS ---
[facility] Test Date: 2024-06-09 Pat Name: Mini Hair Department: Room: Gender: Female Home Office Claims Examiner: : 1945 Requested By: Chela Jon Order Number: [id number] Reading MD: NEWTON ASTORGA Measurements Intervals [place] Rate: 62 P: 81 OH: 167 QRS: 3 QRSD: 91 T: 69 QT: 464 QTc: 474 Interpretive Statements SINUS RHYTHM INFERIOR MYOCARDIAL INFARCTION , PROBABLY OLD [40+ ms Q WAVE AND/OR ST/T ABNORMALITY IN II/aVF] Compared to ECG 01/01/2024 13:26:46 Myocardial infarct finding now present T-wave abnormality no longer present Electronically Signed On 06-09-2024 23:33:00 ECOMMERCE MANAGER by NEWTON ASTORGA [id number]
[2024-06-09 14:32] LABS: Glucose Point of Care 227 mg/dL (70-110)
--- NOTE | 2024-06-09 14:36 | XRR_ITS ---
PROCEDURE INFORMATION: Exam: XR Chest Exam date and time: 06/09/2024 3:01 PM Age: 78 years old Clinical indication: Other: AMS TECHNIQUE: Imaging protocol: Radiologic exam of the chest. Views: 1 view. COMPARISON: CT lung screening [id number] 10/06/2019 9:37 AM FINDINGS: Tubes, catheters and devices: The endotracheal tube is appropriately positioned in the distal thoracic trachea with the tip above the catarina. The nasogastric tube extends beyond the diaphragmatic hiatus. The tip is not imaged. Lungs: Lungs are clear. Pleural spaces: There is no pleural effusion or pneumothorax. Heart/Mediastinum: Cardiomediastinal contours are unremarkable. Bones/joints: Bones are unremarkable. XR/XR chest 1V portable [id number] IMPRESSION: 1. Satisfactory lines and tubes. 2. Lungs are clear.
[2024-06-09 14:43] VITALS: BP 81/39; PULSE 63; RESP 20; TEMP 37; O2SAT 99
[2024-06-09 14:48] LABS: ABG PH Result 7.38 (7.35-7.45); Arterial Blood Gas Hematocrit 37.5 % (37-47); Base Excess ABG 3.4 mmol/L (-2.0-2.0); Blood Gas Allen Test Pos; Blood Gas Operator Identificat WALCI; Blood Gas Sample Site Radial, right; Blood Gas Sample Type Arterial; Carboxyhemoglobin 0.5 %THgb (0.4-20.1); HCO3 ABG 29.3 mmol/L (22-26); HGB O2 Sat > 100.0 % (95-100); Ionized Calcium Level - ABG 1.2 mmol/L (1.1-1.4); Methemoglobin < 0.0 % (0.4-1.5); Oxygen Device NC; Oxygen Saturation ABG 98.2; Potassium Level - ABG 4.1 mmol/L (3.5-5.0); Total Hemoglobin 12.2 g/dL (12-16)
[2024-06-09] MEDS: etomidate 2 mg/mL INJ SDV 10 mL 20 MG IVP (14:56)
[2024-06-09] MEDS: vecuronium 10 mg SDV IVP (14:56)
--- NOTE | 2024-06-09 14:58 | W.ED.NEUROSD ---
HPI - Neuro Symptoms/Deficit General: Chief Complaint: Neuro Symptoms/Deficit Stated Complaint: ams Time Seen by Provider: 06/09/24 14:29 Source: EMS Mode of arrival: EMS Limitations: altered mental status History of Present Illness: 78-year-old female who is here with altered mental status patient seen yesterday as normal by family checked on her today and she is altered patient here is only responding to painful stimuli. She has a history of diabetes along with stroke in the past. No recent known illness Related Data Home Medications ?Medication ?Instructions ?Recorded ?Confirmed ergocalciferol (vitamin D2) 1,250 50,000 unit PO DIRECTED 05/04/19 06/09/24 mcg (50,000 unit) capsule metformin 1,000 mg tablet 1,000 mg PO DAILY 05/04/19 06/09/24 levothyroxine 50 mcg tablet 50 mcg PO DAILY 06/23/19 06/09/24 amlodipine 5 mg tablet 5 mg PO DAILY 06/09/24 06/09/24 atorvastatin 80 mg tablet 80 mg PO DAILY 06/09/24 06/09/24 budesonide-formoterol HFA 80 2 inh inhalation BID 06/09/24 06/09/24 mcg-4.5 mcg/actuation aerosol inhaler (Symbicort) empagliflozin 25 mg tablet 25 mg PO DAILY 06/09/24 06/09/24 (Jardiance) escitalopram oxalate 5 mg tablet 5 mg PO DAILY 06/09/24 06/09/24 furosemide 20 mg tablet 20 mg PO DAILY 06/09/24 06/09/24 hydrochlorothiazide 25 mg tablet 25 mg PO DAILY 06/09/24 06/09/24 insulin glargine 100 unit/mL (3 40 unit SUBCUT DAILY 06/09/24 06/09/24 mL) subcutaneous pen (Lantus Solostar U-100 Insulin) omeprazole 40 mg capsule,delayed 40 mg PO DAILY 06/09/24 06/09/24 release Previous Rx's ?Medication ?Instructions ?Recorded aspirin 81 mg tablet,delayed 81 mg PO DAILY #90 tabs 01/02/24 release clopidogrel 75 mg tablet 75 mg PO DAILY #20 tabs 01/02/24 cyanocobalamin (vitamin B-12) 1,000 mcg PO DAILY #60 tabs 01/02/24 1,000 mcg tablet losartan 50 mg tablet 50 mg PO DAILY #30 tabs 01/02/24 adalimumab 40 mg/0.8 mL See Rx Instructions .Route 05/12/24 subcutaneous syringe kit (Humira) .COMPLEX #2 ea Allergies Allergy/AdvReac Type Severity Reaction Status Date / Time banana Allergy Intermediate ADR-Vomitin Verified 05/12/24 11:40 g Egg Derived Allergy Intermediate ADR-Itching Verified 05/12/24 11:40 Review of Systems General: Reports: ROS unobtainable due to mental status PFSH ED PFSH: Medical History Cerebral infarction, left hemisphere Cerebrovascular event OA (osteoarthritis) of knee Psoriatic arthritis Psoriasis Osteoarthritis Insulin dependent diabetes mellitus COPD (chronic obstructive pulmonary disease) Hypertension High risk medication use Immunization counseling Surgical History H/O tubal ligation Family History Other Cancer Heart disease Hypertension Denies family history of Rheumatoid arthritis Lupus Social History Smoking and tobacco/nicotine status: former use of tobacco/nicotine Alcohol intake: never Substance/Drug Use: unknown Physical Exam Const: COMMON NORMALS: negative for patient oriented x3 HENMT: COMMON NORMALS: normocephalic and atraumatic HEAD & SCALP: normocephalic and atraumatic Neck/C-Spine: COMMON NORMALS: full ROM and supple Chest: COMMONS NORMALS: normal inspection of the chest Resp: COMMON NORMALS: normal respiratory effort, No retractions, No use of accessory muscles and clear to auscultation bilaterally AUSCULTATION: clear to auscultation bilaterally Cardio: COMMON NORMALS: regular rate, regular rhythm and No murmurs present (Cardio) RATE: regular rate RHYTHM: regular rhythm GI: COMMON NORMALS: Normal to inspection, nondistended, normoactive bowel sounds present, Soft to palpation, non-tender and no masses PALPATION: Yes Soft to palpation Extremity: COMMON NORMALS: normal to inspection and full ROM Neuro: COMMON NORMALS: negative for patient oriented x3 OTHER: Altered only responding to painful stimuli Psych: COMMON NORMALS: negative for mental status grossly normal Skin: COMMON NORMALS: no rashes or lesions noted and no wounds GENERAL SKIN EXAM: no rashes or lesions noted Procedures Intubation Time out performed: Yes sedative: Etomidate Mg Given: 20 paralytic: Vecuronium Mg Given: 100 Laryngoscope: Celestine ET Tube Size: 8 ET Tube Uncuffed: No Tube Secured Depth (cm): 25 Tube Secured Location: lips Tube Placement Confirmation: visualized tube passing through cords, equal breath sounds bilaterally, no breath sounds over epigastrium and confirmation by capnometry Patient Tolerated Procedure: well Intubation Complications: none Course Vital Signs: Vital signs: Vital Signs Temperature 98.6 F 06/09/24 14:43 Pulse Rate 63 06/09/24 14:43 Respiratory Rate 14 06/09/24 15:10 Blood Pressure 81/39 06/09/24 14:43 Pulse Oximetry 99 06/09/24 14:43 Oxygen Delivery Me thod Nasal Cannula 06/09/24 14:43 Oxygen Flow Rate 3 06/09/24 14:43 Fraction of Inspir ed Oxygen 45 06/09/24 15:10 MDM - Neuro Symptoms/Deficit Medical Decision Making Patient presents here after a intracranial and thalamic hemorrhage patient was intubated as she was not protecting her airway blood pressure initially low but is now stable I did speak to [facility] will transfer their ER to ER for higher level of care with neurosurgery Medical Records I reviewed the patient's medical records. Lab Data I reviewed the patient's lab results. Radiology Impressions Head CT 06/09/24 14:28 IMPRESSION: 1. Right thalamic intraparenchymal hematoma. 2. Diffuse intraventricular hemorrhage. 3. Mild dilation of the lateral ventricles and transependymal edema consistent with elevated intraventricular pressure. ASSESSMENT: ASPECTS (Radha Stroke Program Early CT Score) is 10. ADDENDUM: 06/09/24 1504 THIS REPORT CONTAINS FINDINGS THAT MAY BE CRITICAL TO PATIENT CARE. The findings and recommendations were personally verbally communicated via telephone conference with Dr. Jon at 3:02 PM INFORMATION TECHNOLOGY ANALYST on 06/09/2024. The findings were acknowledged and understood. Laboratory Results Specimen Type Arterial 06/09/24 14:37 Sample Site Radial, right 06/09/24 14:37 ABG pH 7.38 (7.35-7.45) 06/09/24 14:37 ABG pCO2 49.0 mmHg (35-45) H 06/09/24 14:37 ABG pO2 103.0 mmHg (80.0-100.0) H 06/09/24 14:37 ABG HCO3 29.3 mmol/L (22-26) H 06/09/24 14:37 ABG O2 Saturation 98.2 06/09/24 14:37 ABG Base Excess 3.4 mmol/L (-2.0-2.0) H 06/09/24 14:37 Allan Test Pos 06/09/24 14:37 A-a O2 Gradient Not Reportable 06/09/24 14:37 Hematocrit 37.5 % (37-47) 06/09/24 14:37 Hgb O2 Saturation > 100.0 % (95-100) H 06/09/24 14:37 Carboxyhemoglobin 0.5 %THgb (0.4-20.1) 06/09/24 14:37 Methemoglobin < 0.0 % (0.4-1.5) L 06/09/24 14:37 Total Hemoglobin 12.2 g/dL (12-16) 06/09/24 14:37 Sodium 139.0 mmol/L (131-143) 06/09/24 14:37 Potassium 4.1 mmol/L (3.5-5.0) 06/09/24 14:37 Glucose 195.0 mg/dL (70-115) H 06/09/24 14:37 Ionized Calcium 1.2 mmol/L (1.1-1.4) 06/09/24 14:37 O2 Delivery Device Nc 06/09/24 14:37 O2 Liters/Min 2.0 % 06/09/24 14:37 Rn Renal ID [place] 06/09/24 14:37 POC Glucose 227 mg/dL (70-110) H 06/09/24 14:30 All radiology interpretation(s) finalized by discharge Critical Care Time Critical Care Time: Critical Care Time: Yes Total Critical Care Time: 40 Attestation: The high probability of a clinically significant, sudden or life threatening deterioration of the patient's neuro system(s) required my full and direct attention, intervention and personal management. The critical care time is as shown. This time is in addition to time spent performing any reported procedures but includes the following: [x] Data and vital sign review and interpretation [x] Patient assessment, examination and intervention [x] Documentation [x] Medication orders and management Discharge Plan Discharge Patient Disposition: Admitted As Inpatient Clinical Impression: Spontaneous intraparenchymal intracranial hemorrhage, acute Condition: Stable Prescriptions: No Action ergocalciferol (vitamin D2) 50,000 unit capsule 50,000 unit PO DIRECTED Rx Instructions: every 2 weeks metformin 1,000 mg tablet 1,000 mg PO DAILY levothyroxine 50 mcg tablet 50 mcg PO DAILY Humira 40 mg/0.8 mL syringe kit See Rx Instructions .ROUTE .COMPLEX Qty: 2 5RF Dose Instruction: INJECT 40 MG UNDER SKIN EVERY 14 DAYS Rx Instructions: INJECT 40 MG UNDER SKIN EVERY 14 DAYS losartan 50 mg Tablet 50 mg PO DAILY Qty: 30 3RF clopidogrel 75 mg Tablet 75 mg PO DAILY Qty: 20 0RF aspirin 81 mg Tablet,Delayed Release (Dr/Ec) 81 mg PO DAILY Qty: 90 3RF cyanocobalamin (vitamin B-12) 1,000 mcg tablet 1,000 mcg PO DAILY Qty: 60 3RF atorvastatin 80 mg tablet 80 mg PO DAILY omeprazole 40 mg capsule,delayed release(DR/EC) 40 mg PO DAILY amlodipine 5 mg tablet 5 mg PO DAILY hydrochlorothiazide 25 mg tablet 25 mg PO DAILY furosemide 20 mg tablet 20 mg PO DAILY escitalopram oxalate 5 mg tablet 5 mg PO DAILY budesonide-formoterol [Symbicort] 80-4.5 mcg/actuation HFA aerosol inhaler 2 inh INHALATION BID insulin glargine [Lantus Solostar U-100 Insulin] 100 unit/mL (3 mL) insulin pen 40 unit SUBCUT DAILY Jardiance 25 mg tablet 25 mg PO DAILY Referrals: Emily Mercer MD [Primary Care Provider] - Print Language: Tanzanian Coding Level of Care Code ED Grout Machine Tender for Rhonda Fried
[2024-06-09] MEDS: propofol 1,000 MG/100 ML INJ 2.99 MG IV (15:04)
--- NOTE | 2024-06-09 15:04 | PC.NURSE ---
INTUBATION: ETOMIDATE 20MG 1455 VECCARONIUM 10MG 1456 INTUBATED @ 1457 23 AT LIP 8.0
[2024-06-09 15:10] VITALS: RESP 14
--- NOTE | 2024-06-09 16:13 | PC.NURSE ---
THIS NURSE RECEIVED PT WITHOUT REPORT DUE TO EMERGENT INTUBATION NEED. THIS NURSE UNABLE TO ASSESS PT PRIOR TO INTUBATION FOR BASELINE NEUROLOGICAL STATUS.
--- NOTE | 2024-06-09 16:18 | PC.NURSE ---
LABS NOT DRAWN BY NURSE OBTAINING IV ACCESS PRIOR TO THIS NURSE TAKING OVER CARE. PER DR. HARDWICK TO HOLD LAB DRAW DUE TO INTUBATION AND [facility]ING FOR TRANSPORT. PER DR. HARDWICK DID NOT WANT A DELAY OF CARE.
[2024-06-09 16:22] VITALS: BP 145/56; PULSE 73; O2SAT 98
== END 2024-06-09 16:25 | disposition admitted as inpatient to this hospital (09) ==
PROVIDERS: Emergency Provider Emergency Medicine; PCP Internal Medicine
DX: I61.8 Other nontraumatic intracerebral hemorrhage (principal); I10 Essential (primary) hypertension; Z79.4 Long term (current) use of insulin; Z79.02 Long term (current) use of antithrombotics/antiplatelets; Z79.82 Long term (current) use of aspirin; Z87.891 Personal history of nicotine dependence; J44.9 Chronic obstructive pulmonary disease, unspecified
CPT/HCPCS: 31500; 36416; 36600; 70450; 71045; 80051; 82330; 82805; 82962; 93005; 94002; 94799; 96374; 96375; 99291; 99292; J2704; J3490

== ENCOUNTER 2024-07-15 12:56 | Emergency (ER) | payer MEDICAID, SELFPAY ==
--- NOTE | 2024-07-15 13:07 | ECG_ITS ---
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
[2024-07-15 13:08] VITALS: BP 99/66; PULSE 79; RESP 16; TEMP 36.6; O2SAT 93; BMI 33.0
[2024-07-15 13:18] LABS: Basophils % 0.3 %; Eosinophils # 0.1 10^3/uL (0.0-0.8); Eosinophils % 2.1 %; Lymphocytes % 33.9 %; Mean Corpuscular HGB Conc 31.2 g/dL (30-55); Mean Corpuscular Hemoglobin 29.1 pg (27-33); Mean Corpuscular Volume 93.2 fl (85-98); Mean Platelet Volume 9.9 fL (7.4-10.4); Monocytes # 0.4 10^3/uL (0.2-0.9); Monocytes % 7.7 %; Neutrophils % 55.7 %; Nucleated Red Blood Cells % 0 %; Platelet Count 337 10^3/cmm (157-399); Red Blood Count 3.54 10^6/uL (3.85-5.65); Red Cell Distribution Width 15.8 % (12.1-15.1); White Blood Count 5.75 10^3/uL (3.29-11.43)
--- NOTE | 2024-07-15 13:28 | CT_ITS ---
WS: [id number] CT HEAD NONCONTRAST HISTORY: syncope, hemorrhagic stroke last week, on eliquis TECHNIQUE: Contiguous axial imaging performed through the brain. Bone and soft tissue windows. Sagittal and coronal reformats reviewed. All CT scans at [facility] use at least one of these dose optimization techniques: automated exposure control; mA and/or kV adjustment per patient size (includes targeted exams where dose is matched to clinical indication); or iterative reconstruction. DLP: 1097.68 mGy.cm COMPARISON: 06/09/2024 Small amount of acute blood layering in the posterior horns of the lateral ventricles. There is a tiny area of increased attenuation in the RIGHT thalamic bed. This is at the site of the prior acute hemorrhage. Majority of the acute RIGHT thalamic hemorrhage and intraventricular hemorrhage has resolved. Low- attenuation changes are now noted within the subacute RIGHT thalamic infarct.. No extra axial blood products. There is no midline shift. Ventricles are still slightly prominent but have decreased in size since 06/09/2024. Ventriculostomy tract RIGHT frontal bone. Cells: Well pneumatized. Calvarium and scalp: Skull is intact with no soft tissue edema or swelling. LEFT frontal scalp calcification. CT/CT head wo con* [id number] IMPRESSION: 1. Small amount of residual intraventricular blood and blood at the RIGHT thal amic parenchymal hemorrhage site. Much improved since 06/09/2024. Comparison wit h interval CTs would be most helpful to evaluate for worsening of intraventricu lar blood. 2. Ventricular dilatation is decreasing. 3. No midline shift. Notified KRISTEL Carreno at 07/15/2024 3:20 PM.
--- NOTE | 2024-07-15 13:31 | ED_ITS ---
HPI - Syncope 2 General: Chief Complaint: Syncope Stated Complaint: Syncope Time Seen by Provider: 07/15/24 13:18 Source: patient Mode of arrival: EMS Limitations: no limitations History of Present Illness: Patient is a 78-year-old female with recent history of hemorrhagic stroke seen at [facility] for a week, discharged yesterday, who presents by EMS today for reported syncopal episode at home. Reportedly family was getting her off of the commode and she had fallen forward, EMS noted she was hypotensive on their arrival, currently at bedside is 130s/70s. Patient not reporting any symptoms at this time, is alert and oriented currently awaiting family to arrive for further history. She is not reporting any headache, visual changes, focal neurological deficits. No chest pain or shortness of breath. She does have history of COPD. She was started and discharged on Eliquis from the hospital emergency, she does not report any injuries with the syncopal episode today but ultimately states she does not remember what happened. Rest of her vitals are within normal limits at this time. Awaiting report from [facility] at this time from her hospital stay. Family arrives and provides further history. They state that patient was actually in the hospital for a month due to hemorrhagic stroke, and today patient was on the toilet for a few minutes and she seemed to start to faint while seated, on getting her to stand up she continued to fall forward and family states they called EMS as a precautionary purpose. No injuries with the fall as well. She is supposed to take blood pressure medication but they did not give it today as her systolic was in the 90s, normally she is much higher with her blood pressure. Patient continues to have no complaints other than some low back pain from bedsores. She did just have a normal head CT yesterday prior to discharge. They confirmed that she has not demonstrated any mentation status changes or focal neurological deficits, but does have residual left-sided weakness and has DVT throughout her left lower extremity. complaint: almost passed out Onset (ago): minute(s) Witnessed: Yes - by Bystander (family) Context: standing up and recent illness (hemorrhagic stroke) Injuries sustained associated with event: none Associated symptoms: Reports no associated symptoms; Deny abdominal pain, chest pain, fever(s), headache(s), lightheadedness or nausea History: other (hemorrhagic stroke) Related Data Home Medications ?Medication ?Instructions ?Recorded ?Confirmed ergocalciferol (vitamin D2) 1,250 50,000 unit PO DI RECTED 05/04/19 06/09/24 mcg (50,000 unit) capsule metformin 1,000 mg tablet 1,000 mg PO DAILY 05/04/19 0 06/09/24 levothyroxine 50 mcg tablet 50 mcg PO DAILY 06/23/19 0 06/09/24 amlodipine 5 mg tablet 5 mg PO DAILY 06/09/2406/09 atorvastatin 80 mg tablet 80 mg PO DAILY 06/09/2405/17 budesonide-formoterol HFA 80 2 inh inhalation BID 05/1706/09/24 mcg-4.5 mcg/actuation aerosol inhaler (Symbicort) empagliflozin 25 mg tablet 25 mg PO DAILY 06/09/24 (Jardiance) escitalopram oxalate 5 mg tablet 5 mg PO DAILY 5 06/09/24 furosemide 20 mg tablet 20 mg PO DAILY 06/09/2405/17 hydrochlorothiazide 25 mg tablet 25 mg PO DAILY 06/09/24 insulin glargine 100 unit/mL (3 40 unit SUBCUT DAILY 0 06/09/24 06/09/24 mL) subcutaneous pen (Lantus Solostar U-100 Insulin) omeprazole 40 mg capsule,delayed 40 mg PO DAILY 06/09/24 release Previous Rx's ?Medication ?Instructions ?Recorded aspirin 81 mg tablet,delayed 81 mg PO DAILY #90 tabs 0 01/02/24 release clopidogrel 75 mg tablet 75 mg PO DAILY #20 tabs 12/14 01/06 cyanocobalamin (vitamin B-12) 1,000 mcg PO DAILY #60 t abs 01/02/24 1,000 mcg tablet losartan 50 mg tablet 50 mg PO DAILY #30 tabs 12/14 01/06 adalimumab 40 mg/0.8 mL See Rx Instructions .Route 0 05/12/24 subcutaneous syringe kit (Humira) .COMPLEX #2 ea Allergies Allergy/AdvReac Type Severity Reaction Status Date / Time banana Allergy Intermediate ADR-Vomitin Verified 05/12/24 11:40 g Egg Derived Allergy Intermediate ADR-Itching Verified 05/12/24 11:40 Review of Systems 2 General: Reports: 10 or more systems reviewed and unremarkable except in HPI and below Const: Denies: fever(s), chills or fatigue Eyes: Denies: change in vision ENMT: Denies: throat pain, ear or mastoid pain or nasal discharge Card: Reports: syncope; Denies: chest pain, palpitations, swelling of feet/ankles or lightheadedness Resp: Denies: dyspnea, productive cough or wheezing GI: Denies: abdominal pain, nausea, vomiting, diarrhea or constipation : Denies: flank pain, difficulty voiding, dysuria or urinary frequency Musc: Denies: neck pain, back pain or joint pain Skin/Breast: Denies: rash Neuro: Denies: headache(s), numbness in extremities or weakness in extremities PFSH ED 2 PFSH: Medical History Cerebral infarction, left hemisphere Cerebrovascular event OA (osteoarthritis) of knee Psoriatic arthritis Psoriasis Osteoarthritis Insulin dependent diabetes mellitus COPD (chronic obstructive pulmonary disease) Hypertension High risk medication use Immunization counseling Surgical History H/O tubal ligation Family History Other Cancer Heart disease Hypertension Denies family history of Rheumatoid arthritis Lupus Social History Smoking and tobacco/nicotine status: former use of tobacco/nicotine Alcohol intake: never Substance/Drug Use: unknown Physical Exam 2 Const: COMMON NORMALS: no acute distress, patient oriented x3 and no limitations GENERAL APPEARANCE: cooperative, comfortable and well developed ORIENTATION/CONSCIOUSNESS: Yes awake, Yes oriented to person, Yes oriented to place and Yes oriented to time HENMT: COMMON NORMALS: normocephalic, atraumatic and hearing grossly normal bilaterally HEAD & SCALP: normocephalic and atraumatic OTHER: Chronic cystic lesion to frontal scalp Eye: COMMON NORMALS: EOMs intact bilaterally and conjunctivae normal C ONJUNCTIVA: Yes conjunctivae normal OTHER: Sluggish pupils bilaterally, bilaterally reactive to light. They do cross midline. Neck/C-Spine: COMMON NORMALS: full ROM, supple and no JVD Resp: COMMON NORMALS: normal respiratory effort, No retractions, No use of accessory muscles and clear to auscultation bilaterally AUSCULTATION: clear to auscultation bilaterally Cardio: COMMON NORMALS: no JVD, regular rate, regular rhythm, No clicks present (Cardio), No murmurs present (Cardio) and No rub (Cardio) RATE: r egular rate RHYTHM: regular rhythm GI: COMMON NORMALS: Normal to inspection, nondistended, normoactive bowel sounds present, Soft to palpation and non-tender AUSCULTATION: Yes normoactive bowel sounds PALPATION: Yes Soft to palpation RECTAL EXAM: d eferred OTHER: Scattered ecchymotic lesions to abdominal wall Extremity: COMMON NORMALS: normal to inspection, full ROM and capillary refill normal Neuro: COMMON NORMALS: patient oriented x3, CN's II-XII intact bilaterally, moves all extremities and no sensory deficits noted SENSORIUM/ORIENTATION: Y es oriented to person, Yes oriented to place and Yes oriented to time C OORDINATION/BALANCE: [id number] test normal SPEECH: speech normal G AIT: Yes Unable to assess gait MOTOR EXAM: Pronator motor function not present and no tremor noted COORDINATION: [id number] test normal O THER: Weakness of bilateral lower extremities, L>R. This is reported to be chronic and a residual deficit of previous CVA. Skin: COMMON NORMALS: no rashes or lesions noted GENERAL SKIN EXAM: no rashes or lesions noted Course 2 Vital Signs: Vital signs: Vital Signs Temperature 97.8 F 07/15/24 13:08 Pulse Rate 78 07/15/24 14:23 Respiratory Rate 16 07/15/24 13:08 Blood Pressure 133/62 07/15/24 14:23 Pulse Oximetry 94 07/15/24 14:23 Oxygen Delivery Me thod Room Air 07/15/24 13:08 MDM - Syncope Medical Decision Making This patient presented by ambulance due to syncopal episode reported by family, who did provide most of the history. Patient was discharged from [facility] yesterday, where she had stayed for greater than a month secondary to a hemorrhagic stroke. Discharged on Eliquis. Family had noted that with changing position today and after bowel movements she had what appeared to be a syncopal episode as she became faint and fell over. Family states otherwise she has been at baseline mentation and has overall been doing well since discharge. There was no injuries associated with syncopal episode, at time of examination patient had no complaints and was at baseline mentation. Does have residual left lower extremity weakness, no focal deficits here. EKG ordered and unremarkable, reviewed with physician. Her lab work showed chronic findings, PT/INR not yet within therapeutic range this is likely due to her just beginning the Eliquis. Her head CT did show a small amount of intraventricular blood as well as blood at the right thalamic parenchymal hemorrhage site, this was reviewed with CT obtained on 06/09 of this year. Reportedly this patient had CT performed at [facility] yesterday prior to discharge, we do not have this record at this time. Because of this I spoke with Dr. Ferreira, neurologist at [facility], who was able to review yesterday's imaging with today's and states that this is a physiologic amount of blood and not likely to be a new rebleed. Because of this can be safely discharged with the continued plan to follow-up outpatient. Family had noted concerns that patient had been septic in the past, I do not feel that this is the case at this time with her unremarkable labs, no fever, and no other signs of acute illness. Blood pressure has been stable here in the ED, 130 systolic and I do feel that the episode she had was a vagal response. Discussed the benign nature of this with family and the patient, to which all of the questions and concerns were addressed. At this time patient is discharged in stable condition. I did discuss this patient's case here with Dr. Jon. Lab Data 07/15/24 13:12 07/15/24 13:[address] 07/15/24 13:28 IMPRESSION: 1. Small amount of residual intraventricular blood and blood at the RIGHT thalamic parenchymal hemorrhage site. Much improved since 06/09/2024. Comparison with interval CTs would be most helpful to evaluate for worsening of intraventricular blood. 2. Ventricular dilatation is decreasing. 3. No midline shift. Notified KRISTEL Carreno at 07/15/2024 3:20 PM. Laboratory Results WBC 5.75 10^3/uL (3.29-11.43) 07/15/24 13:12 RBC 3.54 10^6/uL (3.85-5.65) L 07/15/24 13:12 Hgb 10.30 g/dL (11.27-16.99) L 07/15/24 13:12 Hct 33.0 % (36-47) L 07/15/24 13:12 MCV 93.2 fl (85-98) 07/15/24 13:12 MCH 29.1 pg (27-33) 07/15/24 13:12 MCHC 31.2 g/dL (30-55) 07/15/24 13:12 RDW 15.8 % (12.1-15.1) H 07/15/24 13:12 Plt Count 337 10^3/cmm (157-399) 07/15/24 13:12 MPV 9.9 fL (7.4-10.4) 07/15/24 13:12 Neut % (Auto) 55.7 % 07/15/24 13:12 Lymph % (Auto) 33.9 % 07/15/24 13:12 [place] % (Auto) 7.7 % 07/15/24 13:12 Eos % (Auto) 2.1 % 07/15/24 13:12 Baso % (Auto) 0.3 % 07/15/24 13:12 Neut # (Auto) 3.20 10^3/uL (1.8-7.7) 07/15/24 13:12 Lymph # (Auto) 2.0 10^3/uL (0.8-4.8) 07/15/24 13:12 [place] # (Auto) 0.4 10^3/uL (0.2-0.9) 07/15/24 13:12 Eos # (Auto) 0.1 10^3/uL (0.0-0.8) 07/15/24 13:12 Baso # (Auto) 0.0 10^3/uL (0.0-0.1) 07/15/24 13:12 Nucleated RBC % (auto) 0 % 07/15/24 13:12 Nucleated RBCs # 0.0 /100WBC 07/15/24 13:12 PT 18.70 SECONDS (12.1-14.9) H 07/15/24 13:12 INR 1.46 (0.8-1.2) H 07/15/24 13:12 Sodium 134 mmol/L (136-145) L 07/15/24 13:12 Potassium 3.2 mmol/L (3.5-5.1) L 07/15/24 13:12 Chloride 97 mmol/L (98-107) L 07/15/24 13:12 Carbon Dioxide 27 mmol/L (22-29) 07/15/24 13:12 Anion Gap 13.2 (5-19) 07/15/24 13:12 BUN 8 mg/dL (8-23) 07/15/24 13:12 Creatinine 0.5 mg/dL (0.5-0.9) 07/15/24 13:12 GFR Calculation Not Reportable 07/15/24 13:12 Glucose 137 mg/dL (65-115) H 07/15/24 13:12 Calculated Osmolality 278 mOsm/kg (285-295) L 07/15/24 13:12 Calcium 8.5 mg/dL (8.5-10.5) 07/15/24 13:12 Total Bilirubin 0.7 mg/dL (0.15-1.2) 07/15/24 13:12 AST 16 U/L (0-32) 07/15/24 13:12 ALT 13 U/L (0-33) 07/15/24 13:12 Alkaline Phosphatase 69 U/L (35-105) 07/15/24 13:12 Total Protein 6.1 g/dL (6.6-8.7) L 07/15/24 13:12 Albumin 3.1 g/dL (3.5-5.2) L 07/15/24 13:12 Globulin 3.0 g/dL (1.3-4.6) 07/15/24 13:12 All radiology interpretation(s) finalized by discharge EKG Data EKG 1: EKG interpretation date: 07/15/24 EKG interpretation time: 13:08 Prior EKG tracings: available for review Interpretation: EKG reviewed with physician. Rate 71. Ectopic atrial rhythm. No acute STEMI. Discharge Plan Discharge Patient Disposition: Home Clinical Impression: Vasovagal syncope, History of CVA (cerebrovascular accident) Condition: Stable Prescriptions: No Action ergocalciferol (vitamin D2) 50,000 unit capsule 50,000 unit PO DIRECTED Rx Instructions: every 2 weeks metformin 1,000 mg tablet 1,000 mg PO DAILY levothyroxine 50 mcg tablet 50 mcg PO DAILY Humira 40 mg/0.8 mL syringe kit See Rx Instructions .ROUTE .COMPLEX Qty: 2 5RF Dose Instruction: INJECT 40 MG UNDER SKIN EVERY 14 DAYS Rx Instructions: INJECT 40 MG UNDER SKIN EVERY 14 DAYS losartan 50 mg Tablet 50 mg PO DAILY Qty: 30 3RF clopidogrel 75 mg Tablet 75 mg PO DAILY Qty: 20 0RF aspirin 81 mg Tablet,Delayed Release (Dr/Ec) 81 mg PO DAILY Qty: 90 3RF cyanocobalamin (vitamin B-12) 1,000 mcg tablet 1,000 mcg PO DAILY Qty: 60 3RF atorvastatin 80 mg tablet 80 mg PO DAILY omeprazole 40 mg capsule,delayed release(DR/EC) 40 mg PO DAILY amlodipine 5 mg tablet 5 mg PO DAILY hydrochlorothiazide 25 mg tablet 25 mg PO DAILY furosemide 20 mg tablet 20 mg PO DAILY escitalopram oxalate 5 mg tablet 5 mg PO DAILY budesonide-formoterol [Symbicort] 80-4.5 mcg/actuation HFA aerosol inhaler 2 inh INHALATION BID insulin glargine [Lantus Solostar U-100 Insulin] 100 unit/mL (3 mL) insulin pen 40 unit SUBCUT DAILY Jardiance 25 mg tablet 25 mg PO DAILY Discharge Orders: Discharge ED (Routine); Ordered 07/15/24 Ordered By: Aj Lake Referrals: Emily Mercer MD [Primary Care Provider] - Patient Instructions: Syncope (ED) Activity Restrictions/Additional Instructions: Please continue your home medications. Please continue follow-up with neurology as planned. Take care with changing positions, make sure you are drinking plenty of fluids. If you have any fevers, persistent vomiting, focal neurological deficits, or any other concerns please return to the ED immediately as we discussed. Please see the attached patient instructions for any further education. Follow-up with regular doctor routinely. Print Language: Georgian Coding Level of Care Code ED Living Coach for Rhonda Fried
[2024-07-15 13:41] LABS: Alanine Aminotransferase 13 U/L (0-33); Albumin Level 3.1 g/dL (3.5-5.2); Alkaline Phosphatase 69 U/L (35-105); Anion Gap 13.2 (5-19); Aspartate Amino Transferase 16 U/L (0-32); Blood Urea Nitrogen 8 mg/dL (8-23); Calcium 8.5 mg/dL (8.5-10.5); Carbon Dioxide 27 mmol/L (22-29); Chloride 97 mmol/L (98-107); Creatinine Clr Calc Pharmacy 58.4773; Glucose 137 mg/dL (65-115); Osmolality Calculated 278 mOsm/kg (285-295); Potassium 3.2 mmol/L (3.5-5.1); Sodium 134 mmol/L (136-145); Total Bilirubin 0.7 mg/dL (0.15-1.2); Total Protein 6.1 g/dL (6.6-8.7)
[2024-07-15 14:12] LABS: INR 1.46 (0.8-1.2)
[2024-07-15 14:23] VITALS: BP 133/62; PULSE 78; O2SAT 94
[2024-07-15] MEDS: acetaminophen 325 mg Tablet 650 MG PO (18:43)
--- NOTE | 2024-07-15 18:54 | PC.NURSE ---
pt report taken from Vera PONCE at this time.
--- NOTE | 2024-07-15 21:00 | PC.NURSE ---
pt daughter called, pt given pudding and drink.
[2024-07-15 21:31] VITALS: BP 98/56; PULSE 71; O2SAT 94
== END 2024-07-15 21:33 | disposition home or self-care (01) ==
PROVIDERS: Emergency Medicine; Emergency Provider Physician Assistant; PCP Internal Medicine
DX: R55 Syncope and collapse (principal); Z86.73 Personal history of transient ischemic attack (TIA), and cerebral infarction without residual deficits; Z79.02 Long term (current) use of antithrombotics/antiplatelets; Z79.82 Long term (current) use of aspirin; Z79.4 Long term (current) use of insulin; Z87.891 Personal history of nicotine dependence; J44.9 Chronic obstructive pulmonary disease, unspecified; I10 Essential (primary) hypertension; E11.9 Type 2 diabetes mellitus without complications
CPT/HCPCS: 36415; 70450; 80053; 85025; 85610; 93005; 99284; J9999

== ENCOUNTER 2024-07-24 11:44 | Inpatient (IN) | payer MEDICAID, SELFPAY ==
[2024-07-24] VITALS (8 sets, daily range): BP systolic 83–145; BP diastolic 47–64; PULSE 69–93; RESP 17–18; TEMP 36.4–36.6; O2SAT 87–96; BMI 30.1; BMI 29.8
--- NOTE | 2024-07-24 11:56 | XR_ITS ---
WS: [id number] Exam: XR chest 1V portable [id number] Date/Time of Exam: 07/24/2024 12:06 PM Reason For Exam: SOB, hypoxia Comparison 06/09/2024. The lungs are clear and fully expanded. Normal cardiomediastinal silhouette. No pleural effusions. Bony structures are intact. Atherosclerotic plaquing of the thoracic aorta. XR/XR chest 1V portable [id number] IMPRESSION: 1. No acute cardiopulmonary finding.
[2024-07-24 12:12] LABS: Basophils % 0.7 %; Eosinophils # 0.1 10^3/uL (0.0-0.8); Eosinophils % 1.7 %; Hematocrit 39.3 % (36-47); Lymphocytes # 2.4 10^3/uL (0.8-4.8); Lymphocytes % 43.6 %; Mean Corpuscular HGB Conc 29.5 g/dL (30-55); Mean Corpuscular Hemoglobin 28.6 pg (27-33); Mean Platelet Volume 9.9 fL (7.4-10.4); Monocytes # 0.6 10^3/uL (0.2-0.9); Monocytes % 10.4 %; Neutrophils # 2.35 10^3/uL (1.8-7.7); Neutrophils % 43.4 %; Nucleated Red Blood Cells % 0 %; Platelet Count 277 10^3/cmm (157-399); Red Blood Count 4.05 10^6/uL (3.85-5.65); Red Cell Distribution Width 15.5 % (12.1-15.1); White Blood Count 5.41 10^3/uL (3.29-11.43)
[2024-07-24 12:29] LABS: Alanine Aminotransferase 12 U/L (0-33); Albumin Level 3.1 g/dL (3.5-5.2); Alkaline Phosphatase 60 U/L (35-105); Anion Gap 16.8 (5-19); Aspartate Amino Transferase 18 U/L (0-32); Blood Urea Nitrogen 8 mg/dL (8-23); Carbon Dioxide 25 mmol/L (22-29); Chloride 98 mmol/L (98-107); Creatinine Clr Calc Pharmacy 62.3263; Globulin 3.3 g/dL (1.3-4.6); Glucose 157 mg/dL (65-115); Osmolality Calculated 284 mOsm/kg (285-295); Potassium 3.8 mmol/L (3.5-5.1); Sodium 136 mmol/L (136-145); Total Bilirubin 0.7 mg/dL (0.15-1.2); Total Protein 6.4 g/dL (6.6-8.7)
--- NOTE | 2024-07-24 12:49 | CT_ITS ---
WS: [id number] CTA OF THE CHEST WITH PULMONARY EMBOLISM PROTOCOL TECHNIQUE: High-resolution contrast enhanced CTA of the chest with coronal and sagittal reformatted images with pulmonary embolism protocol. MIP images are also reviewed. CLINICAL INFORMATION: Hypoxia, tachycardia, unilateral L leg swelling COMPARISON: None. DLP: 455.[address] scans at [facility] use at least one of these dose optimization techniques: automated exposure control; mA and/or kV adjustment per patient size (includes targeted exams where dose is matched to clinical indication); or iterative reconstruction. FINDINGS: Proximal and main pulmonary arteries are normal. Normal segmental and subsegmental pulmonary arteries. No evidence of pulmonary embolus. Dense aortic calcification. Coronary calcification. No mediastinal or hilar lymphadenopathy. Tiny esophageal hiatal hernia. Hepatomegaly. Normal RIGHT adrenal gland. LEFT adrenal myelolipoma appears stable since 2019. Fatty atrophy of the pancreas. Splenic artery calcification. Thoracic curve and thoracic kyphosis.. CT/CT angio chest PE protcl [id number] IMPRESSION: 1. No evidence of pulmonary embolus. 2. Markedly dense aortic and coronary calcification. 3. Normal caliber thoracic aorta. 4. Chronic emphysematous changes. No focal infiltrates.
--- NOTE | 2024-07-24 12:49 | USCV_ITS ---
Mini Hair Age: 78 Gender: F : 1945 Exam Date: 07/24/2024 13:32 Ordering Phys: Ernie Gallardo MD Technologist: SAFIA [place] [facility] [place]: LT Pain. h/o DVT LLE HISTORY: Lower extremity pain. History of deep venous thrombosis. PROCEDURES: Venous duplex imaging was performed in only the left lower extremity. The following venous structures were evaluated: common femoral vein, profunda vein, proximal portion of the greater saphenous vein, superficial femoral vein, and the popliteal vein. In addition, the posterior tibial and peroneal trunk were evaluated. Serial compression, augmentation maneuvers, and spectral Doppler flow evaluation were performed. FINDINGS: nonoccluding dvt in pop CONCLUSIONS Nonocclusive DVT LEFT popliteal vein. Some of this may be subacute in chronictiy Remainder LLE patent Sergei Almazan MD (Electronically Signed) Final Date: 24 July 2024 16:08 S
--- NOTE | 2024-07-24 12:51 | PC.PHAR ---
Patient's daughterstates patient has a nebulizer at home and a rescue inhaler .I can not find a current order for one. Patient had a treatment before coming in and used her rescue inhaler and symbicort.
[2024-07-24 13:01] LABS: Lactic Sepsis W/Reflex 2.4 mmol/L (0.5-2.2)
[2024-07-24 13:14] LABS: ABG PCO2 45.2 mmHg (35-45); ABG PH Result 7.45 (7.35-7.45); Arterial Blood Gas Hematocrit 35.4 % (37-47); Base Excess ABG 6.7 mmol/L (-2.0-2.0); Blood Gas Allen Test Pos; Blood Gas Operator Identificat glc; Blood Gas Sample Site Heel, right; Blood Gas Sample Type Arterial; Carboxyhemoglobin 1.5 %THgb (0.4-20.1); HCO3 ABG 31.5 mmol/L (22-26); HGB O2 Sat 89.3 % (95-100); Methemoglobin 0.1 % (0.4-1.5); PO2 ABG 59.6 mmHg (80.0-100.0); PO2 FiO2 Ratio Arterial Blood 283; Total Hemoglobin 11.5 g/dL (12-16)
[2024-07-24 13:24] LABS: NT Pro B Type Natriuretic Pept 1009 pg/mL (0-450)
[2024-07-24 13:39] LABS: Influenza A NEGATIVE (Negative); Influenza B NEGATIVE (Negative); Respiratory Syncytial Virus Ce NEGATIVE (Negative); SARS-CoV-2 PCR NEGATIVE (Negative)
[2024-07-24 13:47] LABS: Reflex Lactate Order REFLEX LACTIC ORDERD
--- NOTE | 2024-07-24 13:47 | CT_ITS ---
WS: [id number] CT HEAD TECHNIQUE: Noncontrast CT of the head obtained from the skullbase to the vertex. CLINICAL INFORMATION: family concerned for another brain bleed. AMS COMPARISON: CT 07/15/2024 DLP: 1179.[address] scans at [facility] use at least one of these dose optimization techniques: automated exposure control; mA and/or kV adjustment per patient size (includes targeted exams where dose is matched to clinical indication); or iterative reconstruction. FINDINGS: Small amount of residual layering blood products in the LEFT greater than RIGHT occipital horn improved since 07/15/24. Residual edema in the RIGHT thalamus from prior recent hemorrhage. No new hemorrhage. Ventricular system and basal cisterns are patent. Moderate small vessel changes. Mild to moderate parenchymal volume loss. Paranasal sinuses are well aerated. Prior RIGHT frontal lissette hole. Subcutaneous scalp calcification is unchanged. CT/CT head wo con* [id number] IMPRESSION: 1. No new hemorrhage 2. Small amount of residual edema in the area of prior hemorrhage RIGHT thalam us. 3. Small amount of residual intraventricular blood products LEFT greater than RIGHT occipital horn 4. Improved hydrocephalus compared to the prior exams 5. No new findings.
[2024-07-24] MEDS: iohexol 350 mg/mL 500 mL Btl (per mL) IV (14:05)
[2024-07-24] MEDS: lactated ringers 500 ML 999 ML IV (14:13)
[2024-07-24 15:21] LABS: Bacteria Urine None Seen /hpf; Hyaline Casts Urine 1.21 /lpf; RBC Urine 0-2 /hpf (0-2); Squamous Epithelial Cell Urine 0-5 /hpf (0-5); WBC Urine 51-100 /hpf (0-5)
[2024-07-24 15:22] LABS: Lactic Acid level (Lactate) 2.8 mmol/L (0.5-2.2)
[2024-07-24 15:39] LABS: Bilirubin Urine Neg (Negative); Blood Urine Neg (Negative); Glucose Urine UA 4+ (Normal); Ketones Urine Negative (Negative); Leukocyte Esterase Urine 1+ (Negative); Nitrate Urine Negative (Negative); Protein Urine Neg (Negative); Urine Appearance Clear (CLEAR); Urine Color Yellow (Yellow); Urobilinogen Urine 4 mg/dL (Negative); pH Urine 7 (5-7)
[2024-07-24 15:40] LABS: Add Urine Culture? Yes; UA Slide Review UA Slide Review Perf
--- NOTE | 2024-07-24 17:06 | W.ED.SOB ---
HPI - SOB/Dyspnea General: Chief Complaint: Shortness of Breath/Dyspnea Stated Complaint: short of breath Time Seen by Provider: 07/24/24 11:47 Source: patient, family and EMS Mode of arrival: EMS Limitations: altered mental status (dementia) History of Present Illness: HPI Narrative: Patient comes in with complaint of shortness of breath. Family reports her actions been low for a bit over a day. But much worse today. Called ems at once and everything measured fine and so they left. Called her back again as she had continued complaints of shortness of breath and had oxygen in the low 80s at home. Unsure what type of device or if it had a waveform visible on it. Patient has recently had a couple different complications such as a DVT, PE as well as hemorrhagic stroke and septic shock. All within the past few months. Still has some intermittent left leg swelling at times per family and patient. Related Data Home Medications ?Medication ?Instructions ?Recorded ?Confirmed ergocalciferol (vitamin D2) 1,250 50,000 unit PO DIRECTED 05/04/19 07/24/24 mcg (50,000 unit) capsule metformin 1,000 mg tablet 1,000 mg PO DAILY 05/04/19 07/24/24 levothyroxine 50 mcg tablet 50 mcg PO DAILY 06/23/19 07/24/24 amlodipine 5 mg tablet 5 mg PO DAILY 06/09/24 07/24/24 atorvastatin 80 mg tablet 80 mg PO DAILY 06/09/24 07/24/24 budesonide-formoterol HFA 80 2 inh inhalation BID 06/09/24 07/24/24 mcg-4.5 mcg/actuation aerosol inhaler (Symbicort) empagliflozin 25 mg tablet 25 mg PO DAILY 06/09/24 07/24/24 (Jardiance) escitalopram oxalate 5 mg tablet 5 mg PO DAILY 06/09/24 07/24/24 furosemide 20 mg tablet 20 mg PO DAILY 06/09/24 07/24/24 hydrochlorothiazide 25 mg tablet 25 mg PO DAILY 06/09/24 07/24/24 insulin glargine 100 unit/mL (3 10 unit SUBCUT DAILY 06/09/24 07/24/24 mL) subcutaneous pen (Lantus Solostar U-100 Insulin) omeprazole 40 mg capsule,delayed 40 mg PO DAILY 06/09/24 07/24/24 release apixaban 5 mg tablet (Eliquis) 5 mg PO BID 07/15/24 07/24/24 potassium chloride 10 mEq 10 meq PO BID 07/15/24 07/24/24 tablet,extended release(part/cryst) Previous Rx's ?Medication ?Instructions ?Recorded cyanocobalamin (vitamin B-12) 1,000 mcg PO DAILY #60 tabs 01/02/24 1,000 mcg tablet adalimumab 40 mg/0.8 mL See Rx Instructions .Route 05/12/24 subcutaneous syringe kit (Humira) .COMPLEX #2 ea Allergies Allergy/AdvReac Type Severity Reaction Status Date / Time banana Allergy Intermediate ADR-Vomitin Verified 05/12/24 11:40 g Egg Derived Allergy Intermediate ADR-Itching Verified 05/12/24 11:40 Review of Systems General: Reports: ROS unobtainable due to mental status PFSH ED PFSH: Medical History Cerebral infarction, left hemisphere Cerebrovascular event OA (osteoarthritis) of knee Psoriatic arthritis Psoriasis Osteoarthritis Insulin dependent diabetes mellitus COPD (chronic obstructive pulmonary disease) Hypertension High risk medication use Immunization counseling Surgical History H/O tubal ligation Family History Other Cancer Heart disease Hypertension Denies family history of Rheumatoid arthritis Lupus Social History Smoking and tobacco/nicotine status: former use of tobacco/nicotine Alcohol intake: never Substance/Drug Use: unknown Physical Exam Const: COMMON NORMALS: no acute distress, average body habitus, healthy appearing, alert and well nourished EXAM LIMITATIONS: other limitations (dementia) GENERAL APPEARANCE: well kempt and well developed NUTRITIONAL APPEARANCE: obese HENMT: COMMON NORMALS: normocephalic, atraumatic, external ears normal and moist oral mucous membranes HEAD & SCALP: normocephalic and atraumatic EXTERNAL EAR: Yes external ears normal Eye: COMMON NORMALS: Equal, round and reactive pupils present, EOMs intact bilaterally and conjunctivae normal CONJUNCTIVA: Yes conjunctivae normal PUPIL: Yes Equal, round and reactive pupils present Neck/C-Spine: COMMON NORMALS: full ROM, no lymphadenopathy and supple Chest: CHEST: Yes Symmetrical chest wall rise and No Surgical scars present (Chest) Resp: COMMON NORMALS: normal respiratory effort, No retractions, No use of accessory muscles and clear to auscultation bilaterally AUSCULTATION: clear to auscultation bilaterally Cardio: COMMON NORMALS: regular rate, regular rhythm, S1 normal heart sound present, S2 normal heart sound present, No gallops present (Cardio), No clicks present (Cardio), No murmurs present (Cardio) and No rub (Cardio) RATE: regular rate RHYTHM: regular rhythm HEART SOUNDS: S1 normal heart sound present, S2 normal heart sound present and no murmurs PERIPHERAL PULSES: other (Radial pulses 2+ and symmetric) GI: COMMON NORMALS: Soft to palpation, non-tender and no masses INSPECTION: No abdominal distension PALPATION: Yes Soft to palpation, No Guarding due to palpation present (GI) and No Rebound tenderness present : COMMON NORMALS: Yes no CVA tenderness BLADDER/KIDNEY EXAM: Yes no CVA tenderness Back/Pelvis: COMMON NORMALS: no CVA tenderness Extremity: COMMON NORMALS: normal to inspection, full ROM and capillary refill normal GENERAL: No clubbing and No cyanosis OTHER: Left lower extremity edema 1+ Neuro: SENSORIUM/ORIENTATION: Yes alert Psych: APPEARANCE: Yes well kempt Skin: COMMON NORMALS: no rashes or lesions noted, no wounds, turgor normal and no jaundice GENERAL SKIN EXAM: no rashes or lesions noted and turgor normal Course Reevaluation(s): Reevaluation #1: Spoke with the hospitalist Dr. Talvaera who will be down to evaluate her. Time: 17:42 Vital Signs: Vital signs: Vital Signs Temperature 97.6 F 07/24/24 11:44 Pulse Rate 70 07/24/24 18:07 Respiratory Rate 18 07/24/24 11:44 Blood Pressure 145/60 07/24/24 18:07 Pulse Oximetry 95 07/24/24 18:07 Oxygen Delivery Me thod Room Air 07/24/24 18:07 MDM - SOB/Dyspnea Medical Decision Making Patient's O2 sat keeps dropping even while talking to me. Chest x-ray and CT of been unremarkable for this. Unsure if patient may have a baseline COPD as the CTA does point out some chronic emphysematous changes. But no previous home oxygen use. No new PE. Does still have the DVT in the left leg that is nonocclusive in the popliteal. Patient is currently taking Eliquis. Spoke with Dr. Talavera he will admit for UTI and hypoxia. Lab Data 07/24/24 12:06 07/24/24 12:06 Labs/Radiology: Radiology Impressions Chest X-Ray 07/24/24 11:56 IMPRESSION: 1. No acute cardiopulmonary finding. Chest CTA 07/24/24 12:49 IMPRESSION: 1. No evidence of pulmonary embolus. 2. Markedly dense aortic and coronary calcification. 3. Normal caliber thoracic aorta. 4. Chronic emphysematous changes. No focal infiltrates. Head CT 07/24/24 13:47 IMPRESSION: 1. No new hemorrhage 2. Small amount of residual edema in the area of prior hemorrhage RIGHT thalamus. 3. Small amount of residual intraventricular blood products LEFT greater than RIGHT occipital horn 4. Improved hydrocephalus compared to the prior exams 5. No new findings. Laboratory Results WBC 5.41 10^3/uL (3.29-11.43) 07/24/24 12:06 RBC 4.05 10^6/uL (3.85-5.65) 07/24/24 12:06 Hgb 11.60 g/dL (11.27-16.99) 07/24/24 12:06 Hct 39.3 % (36-47) 07/24/24 12:06 MCV 97.0 fl (85-98) 07/24/24 12:06 MCH 28.6 pg (27-33) 07/24/24 12:06 MCHC 29.5 g/dL (30-55) L 07/24/24 12:06 RDW 15.5 % (12.1-15.1) H 07/24/24 12:06 Plt Count 277 10^3/cmm (157-399) 07/24/24 12:06 MPV 9.9 fL (7.4-10.4) 07/24/24 12:06 Neut % (Auto) 43.4 % 07/24/24 12:06 Lymph % (Auto) 43.6 % 07/24/24 12:06 [place] % (Auto) 10.4 % 07/24/24 12:06 Eos % (Auto) 1.7 % 07/24/24 12:06 Baso % (Auto) 0.7 % 07/24/24 12:06 Neut # (Auto) 2.35 10^3/uL (1.8-7.7) 07/24/24 12:06 Lymph # (Auto) 2.4 10^3/uL (0.8-4.8) 07/24/24 12:06 [place] # (Auto) 0.6 10^3/uL (0.2-0.9) 07/24/24 12:06 Eos # (Auto) 0.1 10^3/uL (0.0-0.8) 07/24/24 12:06 Baso # (Auto) 0.0 10^3/uL (0.0-0.1) 07/24/24 12:06 Nucleated RBC % (auto) 0 % 07/24/24 12:06 Nucleated RBCs # 0.0 /100WBC 07/24/24 12:06 Specimen Type Arterial 07/24/24 13:01 Sample Site Heel, right 07/24/24 13:01 ABG pH 7.45 (7.35-7.45) 07/24/24 13:01 ABG pCO2 45.2 mmHg (35-45) H 07/24/24 13:01 ABG pO2 59.6 mmHg (80.0-100.0) L 07/24/24 13:01 ABG PO2/FiO2 Ratio 283 07/24/24 13:01 ABG HCO3 31.5 mmol/L (22-26) H 07/24/24 13:01 ABG Base Excess 6.7 mmol/L (-2.0-2.0) H 07/24/24 13:01 Allan Test Pos 07/24/24 13:01 Hematocrit 35.4 % (37-47) L 07/24/24 13:01 Hgb O2 Saturation 89.3 % (95-100) L 07/24/24 13:01 Carboxyhemoglobin 1.5 %THgb (0.4-20.1) 07/24/24 13:01 Methemoglobin 0.1 % (0.4-1.5) L 07/24/24 13:01 Total Hemoglobin 11.5 g/dL (12-16) L 07/24/24 13:01 O2 Delivery Device None 07/24/24 13:01 FiO2 21.0 % 07/24/24 13:01 Livestock Farmworker ID glc 07/24/24 13:01 Sodium 136 mmol/L (136-145) 07/24/24 12:06 Potassium 3.8 mmol/L (3.5-5.1) 07/24/24 12:06 Chloride 98 mmol/L (98-107) 07/24/24 12:06 Carbon Dioxide 25 mmol/L (22-29) 07/24/24 12:06 Anion Gap 16.8 (5-19) 07/24/24 12:06 BUN 8 mg/dL (8-23) 07/24/24 12:06 Creatinine 0.5 mg/dL (0.5-0.9) 07/24/24 12:06 GFR Calculation Not Reportable 07/24/24 12:06 Glucose 157 mg/dL (65-115) H 07/24/24 12:06 Calculated Osmolality 284 mOsm/kg (285-295) L 07/24/24 12:06 Lactic Acid 2.4 mmol/L (0.5-2.2) H 07/24/24 12:06 Lactic Acid (Sepsis) 2.8 mmol/L (0.5-2.2) H 07/24/24 14:52 Calcium 8.0 mg/dL (8.5-10.5) L 07/24/24 12:06 Total Bilirubin 0.7 mg/dL (0.15-1.2) 07/24/24 12:06 AST 18 U/L (0-32) 07/24/24 12:06 ALT 12 U/L (0-33) 07/24/24 12:06 Alkaline Phosphatase 60 U/L (35-105) 07/24/24 12:06 C-Reactive Protein 4.1 mg/L (0.0-4.9) 07/24/24 12:06 NT-Pro-B Natriuret Pep 1009 pg/mL (0-450) H 07/24/24 12:06 Total Protein 6.4 g/dL (6.6-8.7) L 07/24/24 12:06 Albumin 3.1 g/dL (3.5-5.2) L 07/24/24 12:06 Globulin 3.3 g/dL (1.3-4.6) 07/24/24 12:06 Procalcitonin 0.09 ng/mL (0-0.5) 07/24/24 12:06 Urine Color Yellow (Yellow) 07/24/24 15:02 Urine Appearance Clear (CLEAR) 07/24/24 15:02 Urine pH 7 (5-7) 07/24/24 15:02 Ur Specific Energy 1.010 (1.005-1.030) 07/24/24 15:02 Urine Protein Neg (Negative) 07/24/24 15:02 Urine Glucose (UA) 4+ (Normal) H 07/24/24 15:02 Urine Ketones Negative (Negative) 07/24/24 15:02 Urine Blood Neg (Negative) 07/24/24 15:02 Urine Nitrate Negative (Negative) 07/24/24 15:02 Urine Bilirubin Neg (Negative) 07/24/24 15:02 Urine Urobilinogen 4 mg/dL (Negative) H 07/24/24 15:02 Ur Leukocyte Esterase 1+ (Negative) H 07/24/24 15:02 Urine RBC 0-2 /hpf (0-2) 07/24/24 15:02 Urine WBC 51-100 /hpf (0-5) H 07/24/24 15:02 Ur Squamous Epith Cells 0-5 /hpf (0-5) 07/24/24 15:02 Amorphous Sediment Not Reportable 07/24/24 15:02 Urine Bacteria None seen /hpf (NONE) 07/24/24 15:02 Hyaline Casts 1.21 /lpf 07/24/24 15:02 Urine Yeast Trace /hpf 07/24/24 15:02 Influenza A (PCR) Negative (Negative) 07/24/24 12:51 Influenza Type B (PCR) Negative (Negative) 07/24/24 12:51 RSV (PCR) Negative (Negative) 07/24/24 12:51 SARS-CoV-2 (PCR) Negative (Negative) 07/24/24 12:51 All radiology interpretation(s) finalized by discharge ED provider radiology interpretation(s): Personally viewed x-ray and CT of the chest and appears normal. Ultrasound studies not available for personal review Discharge Plan Discharge Patient Disposition: Admitted As Inpatient Admit Provider: Hari Talavera Clinical Impression: Hypoxia, UTI (urinary tract infection) Condition: Stable Coding Level of Care Code ED [employer] for Rhonda Fried
[2024-07-24] MEDS: cefTRIAXone 2,000 mg SDV 2000 MG IVP (18:05)
--- NOTE | 2024-07-24 19:19 | CTR_ITS ---
PROCEDURE INFORMATION: Exam: CT Abdomen And Pelvis Without Contrast Exam date and time: 07/24/2024 8:04 PM Age: 78 years old Clinical indication: Prior surgery; Surgery date: 6+ months; Surgery type: Tubal ligation; Positive for UTI from ua results. TECHNIQUE: Imaging protocol: Computed tomography of the abdomen and pelvis without contrast. Radiation optimization: All CT scans at this facility use at least one of these dose optimization techniques: automated exposure control; mA and/or kV adjustment per patient size (includes targeted exams where dose is matched to clinical indication); or iterative reconstruction. COMPARISON: CT angio chest PE protcl [id number] 07/24/2024 1:56 PM RADIATION DOSE METRICS: Total DLP (mGy-cm): 797.64 FINDINGS: Coronary arteries: Coronary arterial atherosclerotic calcifications are present. Liver: Normal. No mass. Gallbladder and biliary ducts: There is a calcified stone in the neck of the gallbladder. Pancreas: Normal. No ductal dilation. Spleen: Normal. No splenomegaly. Adrenal glands: There is a macroscopic fat containing lesion in the left adrenal gland measuring up to 3.3 x 2.1 cm consistent with a myelolipoma. Kidneys and ureters: Normal. No hydronephrosis. Stomach and bowel: Unremarkable. No obstruction. No mucosal thickening. Appendix: No evidence of appendicitis. Intraperitoneal space: Unremarkable. No free air. No significant fluid collection. Vasculature: Severe atherosclerotic disease of the abdominal aorta. Severe stenosis at the origin of the SMA secondary to calcified plaque. Lymph nodes: Unremarkable. No enlarged lymph nodes. Urinary bladder: Unremarkable as visualized. Reproductive: Unremarkable as visualized. Bones/joints: Severe degenerative disc disease in the lower thoracic spine and at L2-L3 and L5-S1. Soft tissues: Unremarkable. CT/CT abdomen pelvis wo con [id number] IMPRESSION: 1. No bowel obstruction or inflammatory process associated with the bowel. 2. No free air or significant free fluid in the abdomen or pelvis. 3. No evidence of appendicitis. 4. No hydronephrosis or renal calculus. No stone in the bladder. 5. There is a macroscopic fat containing lesion in the left adrenal gland measuring up to 3.3 x 2.1 cm consistent with a myelolipoma. COMMENTS: Consistent with the [employer]'s Incidental Findings Committee white paper (J Am Di Radiol 2017): For any incidental adrenal lesion greater than or equal to 1 cm but less than or equal to 4 cm classified in this report as benign, likely benign, or containing fat (including classification as an adenoma or myelolipoma), no follow-up imaging is recommended per consensus recommendations based on imaging criteria. Further lab evaluation could be pursued if warranted based on clinical findings.
--- NOTE | 2024-07-24 19:21 | PM.HP ---
Providers/Chief Complaint Primary Care Provider: Emily Mercer MD Chief Complaint: short of breath History of Present Illness Mini Hair is a 78 year old female with a recent history of intracranial and thalamic hemorrhage, requiring intubation, prolonged hospitalization for over 40 days in [facility] in [place], discharged to short-term care facility, from there eventually patient got discharged home, she had a history of a DVT/PE she is on Eliquis therapy for this, type 2 diabetes, hyperlipidemia, who presents [facility] due to concerns for hypoxia, weakness, altered mental status. Currently patient is alert to person, to place, not to time she thinks Mathew is a president, she follows all commands, denies any headache, blurry vision, no facial droop, no slurring of words, no focal weakness she moves bilateral upper lower extremities, no focal weakness she does not know why she is here in the hospital, but really has no complaints. She denies any chest pain, shortness of breath, no cough, no lightheaded, dizziness. She is able to tell me her address she tells me that she lives with her daughter. I was able to reach patient's daughter, spoke to her daughter, she tells me that patient was hospitalized at [facility] for intracranial bleed and she got discharged to long-term care facility had rehab and eventually got discharged home, she has been getting around the home quite well, she does have episodes of confusion, she was told that she has residual blood products of the brain after her discharge and they will be like that for a long time, they have elected to continue the Eliquis she tells me, no other issues with bleeding on the Eliquis, but recently she has been more confused than her usual self, but this is not unusual for her, overall she is significantly improved from her intracranial hemorrhage, but she certainly has been more weak, she has had 2 episodes of hypoxia which really prompted family to bring her in. No known episodes of apnea aspiration, no choking, no coughing Review of Systems Const: Denies: fever(s), chills, fatigue or malaise Card: Denies: chest pain Resp: Denies: dyspnea or productive cough Neuro: Denies: headache(s), numbness in extremities, weakness in extremities, sensory changes, dizziness, vertigo, confusion, behavioral changes or Slurred speech present Medications/Allergies Home Medications ?Medication ?Instructions ?Recorded ?Confirmed ?Last Taken ?Type ergocalciferol (vitamin D2) 1,250 50,000 unit PO DIRECTED 05/04/19 07/24/24 07/13/24 History mcg (50,000 unit) capsule metformin 1,000 mg tablet 1,000 mg PO DAILY 05/04/19 07/24/24 07/24/24 History levothyroxine 50 mcg tablet 50 mcg PO DAILY 06/23/19 07/24/24 07/24/24 History cyanocobalamin (vitamin B-12) 1,000 mcg PO DAILY #60 tabs 01/02/24 07/24/24 07/23/24 Rx 1,000 mcg tablet adalimumab 40 mg/0.8 mL See Rx Instructions .Route 05/12/24 07/24/24 07/13/24 Rx subcutaneous syringe kit (Humira) .COMPLEX #2 ea amlodipine 5 mg tablet 5 mg PO DAILY 06/09/24 07/24/24 07/24/24 History atorvastatin 80 mg tablet 80 mg PO DAILY 06/09/24 07/24/24 07/23/24 History budesonide-formoterol HFA 80 2 inh inhalation BID 06/09/24 07/24/24 07/24/24 History mcg-4.5 mcg/actuation aerosol inhaler (Symbicort) empagliflozin 25 mg tablet 25 mg PO DAILY 06/09/24 07/24/24 07/24/24 History (Jardiance) escitalopram oxalate 5 mg tablet 5 mg PO DAILY 06/09/24 07/24/24 07/24/24 History furosemide 20 mg tablet 20 mg PO DAILY 06/09/24 07/24/24 07/23/24 History hydrochlorothiazide 25 mg tablet 25 mg PO DAILY 06/09/24 07/24/24 07/24/24 History insulin glargine 100 unit/mL (3 10 unit SUBCUT DAILY 06/09/24 07/24/24 07/24/24 History mL) subcutaneous pen (Lantus Solostar U-100 Insulin) omeprazole 40 mg capsule,delayed 40 mg PO DAILY 06/09/24 07/24/24 07/24/24 History release apixaban 5 mg tablet (Eliquis) 5 mg PO BID 07/15/24 07/24/24 07/24/24 History potassium chloride 10 mEq 10 meq PO BID 07/15/24 07/24/24 07/14/24 History tablet,extended release(part/cryst) Allergies Allergy/AdvReac Type Severity Reaction Status Date / Time banana Allergy Intermediate ADR-Vomitin Verified 05/12/24 11:40 g Egg Derived Allergy Intermediate ADR-Itching Verified 05/12/24 11:40 PFSH Acute PFSH: Medical History Cerebral infarction, left hemisphere Cerebrovascular event OA (osteoarthritis) of knee Psoriatic arthritis Psoriasis Osteoarthritis Insulin dependent diabetes mellitus COPD (chronic obstructive pulmonary disease) Hypertension High risk medication use Immunization counseling Surgical History H/O tubal ligation Family History Other Cancer Heart disease Hypertension Denies family history of Rheumatoid arthritis Lupus Social History Smoking and tobacco/nicotine status: former use of tobacco/nicotine Alcohol intake: never Substance/Drug Use: unknown Vitals/I&O/Wt Last Vital Signs Temp 97.6 F 07/24/24 11:44 Pulse 70 07/24/24 18:07 Resp 18 07/24/24 11:44 BP 145/60 07/24/24 18:07 Pulse Ox 95 07/24/24 18:07 O2 Del Method Room Air 07/24/24 18:07 07/24/24 07/24/24 07/24/24 06:59 14:59 22:59 Intake Total 500 / 500 Balance 500 / 500 Weight last 48 hrs Weight 82.1 kg Physical Exam Const: COMMON NORMALS: no acute distress ORIENTATION/CONSCIOUSNESS: Yes awake, Yes oriented to person and Yes oriented to place; not oriented to time and not confused HENMT: COMMON NORMALS: normocephalic HEAD & SCALP: normocephalic Eye: COMMON NORMALS: Equal, round and reactive pupils present Neck/C-Spine: COMMON NORMALS: no JVD Resp: COMMON NORMALS: normal respiratory effort, No retractions, No use of accessory muscles and clear to auscultation bilaterally AUSCULTATION: clear to auscultation bilaterally Cardio: COMMON NORMALS: regular rate, regular rhythm, S1 normal heart sound present and S2 normal heart sound present RATE: regular rate RHYTHM: regular rhythm HEART SOUNDS: S1 normal heart sound present and S2 normal heart sound present GI: COMMON NORMALS: Normal to inspection, nondistended, normoactive bowel sounds present, Soft to palpation and non-tender Extremity: COMMON NORMALS: no pedal edema Neuro: COMMON NORMALS: CN's II-XII intact bilaterally, moves all extremities and no focal motor deficits Psych: COMMON NORMALS: mental status grossly normal Sepsis: Is patient septic: Yes Focused sepsis exam performed: Yes Focused sepsis exam: DP PT pulses palpable, cap refill given 2 seconds no mottling Date exam was performed: 07/24/24 Time exam was performed: 18:00 Data 07/24/24 12:06 07/24/24 12:06 Micro: Microbiology 07/24/24 18:05 Blood Culture - Preliminary Blood SPECIMEN COLLECTED 07/24/24 17:19 Blood Culture - Preliminary Blood SPECIMEN COLLECTED A&P Assessment and plan (1) Hypoxia: (2) UTI (urinary tract infection): (3) Sepsis: (4) Intracranial hemorrhage: (5) Altered mental status: Plan Hypoxia - Etiology unclear - No wheezing on examination, during my conversation she was on room air no significant drops in her O2 sats - CTA chest CT/CT angio chest PE protcl [id number] IMPRESSION: 1. No evidence of pulmonary embolus. 2. Markedly dense aortic and coronary calcification. 3. Normal caliber thoracic aorta. 4. Chronic emphysematous changes. No focal infiltrates. - Does not look fluid overloaded, although does have elevated BNP -Perhaps aspiration? Aspiration pneumonia? - Will put on dysphagia level 4 diet, aspiration precautions start Zosyn, speech therapy eval -Monitor respiratory status closely Sepsis, sepsis features met Given elevated lactic acid, evidence of UTI, continue Zosyn - Any further fluid therapy due to risk of fluid overload Urinary tract infection, CT scan abdomen pelvis, start Zosyn History of intracranial hemorrhage -CT head 07/24/2024 CT/CT head wo con* [id number] IMPRESSION: 1. No new hemorrhage 2. Small amount of residual edema in the area of prior hemorrhage RIGHT thalamus. 3. Small amount of residual intraventricular blood products LEFT greater than RIGHT occipital horn 4. Improved hydrocephalus compared to the prior exams 5. No new findings. - CT head 07/15/2024 CT/CT head wo con* [id number] IMPRESSION: 1. Small amount of residual intraventricular blood and blood at the RIGHT thalamic parenchymal hemorrhage site. Much improved since 06/09/2024. Comparison with interval CTs would be most helpful to evaluate for worsening of intraventricular blood. 2. Ventricular dilatation is decreasing. 3. No midline shift. - During her last ER visit, case was discussed with Dr. Ferreira, who stated that there is a physiologic amount of blood and not likely to be new rebleed, safely discharged - Patient's family tells me that when they were discharged from [facility] they were told that she had residual blood, and that it would take a prolonged period of time for it to resolve, and that patient will remain on Eliquis - Will continue to monitor closely -Will consider MRI based on clinical progress - Monitor mentation Altered mental status - Patient reports family reports chronic history of altered mentation since her stroke but she has improved - Perhaps worsening confusion could be related to UTI as above or aspiration pneumonia - Certainly seizures could be a possibility with her intracranial hemorrhage history as above, however no seizure-like episodes reported, will place on seizure precautions monitor closely History of DVT/PE, continue Eliquis Type 2 diabetes mellitus, low-dose sliding scale Full code Eliquis for DVT prophylaxis PDMP PDMP Reviewed: Not Reviewed Attestations Medical Necessity Statement*: Patient requires hospitalization, inpatient, greater than 2 midnights, for UTI, altered mental status, weakness, hypoxia Diagnoses Hypoxia R09.02 UTI (urinary tract infection) N39.0 Sepsis A41.9 Intracranial hemorrhage I62.9 Altered mental status R41.82
--- NOTE | 2024-07-24 19:37 | ECG_ITS ---
[facility] Test Date: 2024-07-24 Pat Name: Mini Hair Department: Room: 268 Gender: Female Coverage Specialist Rn: : 1945 Requested By: Hari Talavera Order Number: [id number] Douglas MD: Kassidy Frank M.D. Measurements Intervals [place] Rate: 70 P: -22 MD: 150 QRS: 11 QRSD: 89 T: 141 QT: 408 QTc: 440 Interpretive Statements SINUS RHYTHM LOW QRS VOLTAGE [QRS DEFLECTION < 0.5/1.0 mV IN LIMB/CHEST LEADS] POSSIBLE ANTERIOR MYOCARDIAL INFARCTION , PROBABLY OLD [30 ms Q WAVE IN V3/V4, OR R < 0.2 mV IN V4] Possible old inferior wall FL Compared to ECG 07/15/2024 13:07:33 Low QRS voltage now present Ectopic atrial rhythm no longer present Myocardial infarct finding still present Electronically Signed On 07-25-2024 13:02:16 CDT by Kassidy Frank M.D. [email or web address]
[2024-07-24 19:43] LABS: C Reactive Protein 4.1 mg/L (0.0-4.9)
[2024-07-24 19:50] LABS: Procalcitonin 0.09 ng/mL (0-0.5)
[2024-07-24 20:00] LABS: Troponin(5th) Baseline 80 ng/L (0-10)
[2024-07-24 20:41] LABS: Glucose Point of Care 156 mg/dL (70-110)
[2024-07-24 21:04] LABS: Chol HDL Ratio 4.23 mg/dL (0.0-4.40); Cholesterol 127 mg/dL (0-200); HDL Cholesterol 30 mg/dL (60-100); LDL Cholesterol Calculated 70 mg/dL (50-129); LDL HDL Ratio 2.33 RATIO (0.00-3.22); Thyroid Stimulating Hormone 5.03 uIU/mL (0.27-4.20); Triglycerides 136 mg/dL (0-150)
--- NOTE | 2024-07-24 21:28 | ECG_ITS ---
[facility] Test Date: 2024-07-24 Pat Name: Mini Hair Department: Room: 268 Gender: Female Speedometer Inspector: : 1945 Requested By: Hari Talavera Order Number: [id number] Douglas MD: Kassidy Frank M.D. Measurements Intervals [place] Rate: 93 P: -33 VT: 159 QRS: -14 QRSD: 89 T: 51 QT: 372 QTc: 464 Interpretive Statements SINUS RHYTHM INFERIOR MYOCARDIAL INFARCTION , PROBABLY OLD [40+ ms Q WAVE AND/OR ST/T ABNORMALITY IN II/aVF] ANTEROLATERAL MYOCARDIAL INFARCTION , PROBABLY OLD [40+ ms Q WAVE IN I/aVL/V3-V6] Compared to ECG 07/15/2024 13:07:33 Ectopic atrial rhythm no longer present Myocardial infarct finding still present Electronically Signed On 07-25-2024 13:21:03 CDT by Kassidy Frank M.D. [email or web address]
[2024-07-24 21:56] LABS: Troponin 5 2HR 85.55 ng/L (0-10); Troponin 5 2HR Delta 5.55 ABS# (0-10)
[2024-07-24 22:56] LABS: Estmated Average Glucose 137; Hemoglobin A1C 6.4 % (4.0-6.0)
[2024-07-24] MEDS: piperacillin-tazobactam 3.375 GM in sodium chloride 0.9% (plus) 50 ML IV (23:17)
--- NOTE | 2024-07-24 23:30 | PC.NURSE ---
nurse went into room to start antibiotics, patient had pulled her iv out and laid it on her bedside table. nurse restsrted her iv in her left wrist with a 22g. paient tolerated well
[2024-07-25] VITALS (7 sets, daily range): BP systolic 102–148; BP diastolic 52–66; PULSE 70–78; RESP 15–18; TEMP 36.2–37.1; O2SAT 88–96
[2024-07-25 01:29] LABS: Basophils % 0.4 %; Eosinophils # 0.2 10^3/uL (0.0-0.8); Eosinophils % 4.1 %; Hematocrit 34.8 % (36-47); Lymphocytes # 1.2 10^3/uL (0.8-4.8); Lymphocytes % 22.6 %; Mean Corpuscular HGB Conc 30.5 g/dL (30-55); Mean Corpuscular Hemoglobin 28.3 pg (27-33); Mean Platelet Volume 9.9 fL (7.4-10.4); Monocytes # 0.5 10^3/uL (0.2-0.9); Monocytes % 10.6 %; Neutrophils # 3.15 10^3/uL (1.8-7.7); Neutrophils % 62.1 %; Nucleated Red Blood Cells % 0 %; Platelet Count 247 10^3/cmm (157-399); Red Blood Count 3.74 10^6/uL (3.85-5.65); Red Cell Distribution Width 15.4 % (12.1-15.1); White Blood Count 5.08 10^3/uL (3.29-11.43)
[2024-07-25 01:48] LABS: Troponin 5 6HR 82.17 ng/L (0-10); Troponin 5 6HR Delta 2.17 ng/L (0-12)
[2024-07-25 02:02] LABS: Alanine Aminotransferase 10 U/L (0-33); Alkaline Phosphatase 52 U/L (35-105); Anion Gap 13.6 (5-19); Aspartate Amino Transferase 14 U/L (0-32); Blood Urea Nitrogen 8 mg/dL (8-23); Calcium 8.1 mg/dL (8.5-10.5); Carbon Dioxide 30 mmol/L (22-29); Chloride 99 mmol/L (98-107); Creatinine Clr Calc Pharmacy 62.0228; Globulin 2.5 g/dL (1.3-4.6); Glucose 126 mg/dL (65-115); Magnesium 1.2 mg/dL (1.7-2.3); Osmolality Calculated 288 mOsm/kg (285-295); Phosphorus 3.6 mg/dL (2.5-4.5); Potassium 3.6 mmol/L (3.5-5.1); Sodium 139 mmol/L (136-145); Total Bilirubin 0.5 mg/dL (0.15-1.2); Total Protein 5.5 g/dL (6.6-8.7)
[2024-07-25] MEDS: piperacillin-tazobactam 3.375 GM in sodium chloride 0.9% (plus) 50 ML IV (05:52)
[2024-07-25 06:27] LABS: Glucose Point of Care 122 mg/dL (70-110)
[2024-07-25] MEDS: amlodipine 5 mg Tablet PO (08:38)
[2024-07-25] MEDS: atorvastatin 40 mg Tablet 80 MG PO (08:38)
[2024-07-25] MEDS: levothyroxine 50 mcg Tablet PO (08:39)
[2024-07-25] MEDS: apixaban 5 mg Tablet PO ×2 (08:39→17:01)
[2024-07-25] MEDS: hydroCHLOROthiazide 25 mg Tablet PO (08:39)
[2024-07-25] MEDS: escitalopram 10 mg Tablet 5 MG PO (08:39)
[2024-07-25 11:01] LABS: Glucose Point of Care 166 mg/dL (70-110)
--- NOTE | 2024-07-25 11:16 | PM.DCS ---
Discharge Providers Date of Admission: 07/24/24 19:16 Date of Discharge: July 25, 2024 Attending Provider at Admission: Hari Talavera MD Attending Provider at Discharge: Hari Talavera MD Primary Care Provider: Emily Mercer MD Diagnoses at Discharge Discharge Diagnosis (1) Hypoxia: Status: Acute (2) UTI (urinary tract infection): Status: Acute Qualifiers: Hematuria presence: without hematuria Urinary tract infection type: acute cystitis Qualified Code(s): N30.00 - Acute cystitis without hematuria (3) Sepsis: Status: Acute (4) Intracranial hemorrhage: Status: Acute (5) Altered mental status: Status: Acute Reason for Visit Reason for Visit: short of breath Hospital Course Hospital Course Mini Hair is a 78 year old female with a recent history of intracranial and thalamic hemorrhage, requiring intubation, prolonged hospitalization for over 40 days in [facility] in [place], discharged to short-term care facility, from there eventually patient got discharged home, 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 Currently patient is alert to person, to place, not to time she thinks Mathew is a president, she follows all commands, denies any headache, blurry vision, no facial droop, no slurring of words, no focal weakness she moves bilateral upper lower extremities, no focal weakness she does not know why she is here in the hospital, but really has no complaints. She denies any chest pain, shortness of breath, no cough, no lightheaded, dizziness. She is able to tell me her address she tells me that she lives with her daughter. Patient was admitted to [facility] for hypoxia, potentially aspiration, possibly pneumonia, with underlying COPD, CTA chest CT/CT angio chest PE protcl [id number] IMPRESSION: 1. No evidence of pulmonary embolus. 2. Markedly dense aortic and coronary calcification. 3. Normal caliber thoracic aorta. 4. Chronic emphysematous changes. No focal infiltrates. - Will be discharged on oxygen therapy 2 L - Advair, albuterol - Will keep her on a dysphagia diet, advance as tolerated at home, aspiration precautions Concerns for altered mental status, UTI, managed with IV antibiotics, discharged on p.o. Levaquin - On show she is alert oriented x 3, following all commands History of intracranial hemorrhage -CT head 07/24/2024 CT/CT head wo con* [id number] IMPRESSION: 1. No new hemorrhage 2. Small amount of residual edema in the area of prior hemorrhage RIGHT thalamus. 3. Small amount of residual intraventricular blood products LEFT greater than RIGHT occipital horn 4. Improved hydrocephalus compared to the prior exams 5. No new findings. - CT head 07/15/2024 CT/CT head wo con* [id number] IMPRESSION: 1. Small amount of residual intraventricular blood and blood at the RIGHT thalamic parenchymal hemorrhage site. Much improved since 06/09/2024. Comparison with interval CTs would be most helpful to evaluate for worsening of intraventricular blood. 2. Ventricular dilatation is decreasing. 3. No midline shift. - During her last ER visit, case was discussed with Dr. Ferreira, who stated that there is a physiologic amount of blood and not likely to be new rebleed, safely discharged - Met with patient's daughter in the morning at 07/25/2024 tells me that when they were discharged from [facility] they were told that she had residual blood, and that it would take a prolonged period of time for it to resolve, and that patient will remain on Eliquis for now - Patient's mentation is about at baseline as it normally is daughter tells me, she does have episodes of forgetfulness, is weak on her right side, but is improving, she needs complete assistance from ambulation - Has a follow-up with neurosurgery History of DVT, continue Eliquis Right has evidence of conjunctivitis, conjunctival injection, drainage, discharge on erythromycin drops On 07/25/2024 patient was alert oriented x 2, following all commands, does have episodes of forgetfulness can but can follow most commands, he is at her baseline according to daughter, patient is able to joke with me, I have recommended for her to spend another night in the hospital for closer monitoring however patient is adamant about going home. Her sister recently , and she has family numbers coming from out of state, for a celebration of life ceremony and she wants to be there for her sister tomorrow. As patient needs an ambulance ride, unfortunate this cannot be set up tomorrow, and family cannot transport her, so we will discharge her home today. Discussed family to continue to monitor closely, continue antibiotics, aspiration precautions, oxygen therapy and have her follow-up with neurosurgery as outpatient. If any changes in her mentation, aspiration events, worsening of hypoxia please bring her to the emergency room immediately. Physical Exam Const: COMMON NORMALS: no acute distress ORIENTATION/CONSCIOUSNESS: Yes awake, Yes oriented to person and Yes oriented to place Resp: COMMON NORMALS: normal respiratory effort, No retractions, No use of accessory muscles and clear to auscultation bilaterally AUSCULTATION: clear to auscultation bilaterally Cardio: COMMON NORMALS: regular rate, regular rhythm, S1 normal heart sound present and S2 normal heart sound present RATE: regular rate RHYTHM: regular rhythm HEART SOUNDS: S1 normal heart sound present and S2 normal heart sound present GI: COMMON NORMALS: Normal to inspection, nondistended, normoactive bowel sounds present and non-tender Extremity: COMMON NORMALS: no pedal edema Neuro: SENSORIUM/ORIENTATION: Yes oriented to person and Yes oriented to place Psych: COMMON NORMALS: mental status grossly normal Discharge Data Studies Completed and Pending Completed Studies During Hospitalization Category Date Time Status CT PE [CT angio chest PE protcl [id number]] Stat Cat Scan 07/24/24 12:[address] abdomen pelvis wo con [id number] Stat Cat Scan 07/24/24 19:[address] head wo con* [id number] Stat Cat Scan 07/24/24 13:47 Completed XR chest 1V portable [id number] Stat Exams 07/24/24 11:56 Completed US venous duplex lower extremity LT [CV venous duplex Ultrasound 07/24/24 12:49 [place] [id number]] Stat Pending at discharge Category Date Time Status Blood Culture Stat Lab 07/24/24 18:05 Results Complete Blood Count w/Auto AM LABS Lab 07/26/24 04:00 Ordered Complete Blood Count w/Auto AM LABS Lab 07/27/24 04:00 Ordered Comprehensive Metabolic Panel AM LABS Lab 07/26/24 04:00 Ordered Comprehensive Metabolic Panel AM LABS Lab 07/27/24 04:00 Ordered Magnesium AM LABS Lab 07/26/24 04:00 Ordered Magnesium AM LABS Lab 07/27/24 04:00 Ordered Phosphorus AM LABS Lab 07/26/24 04:00 Ordered Phosphorus AM LABS Lab 07/27/24 04:00 Ordered Sputum Culture and Gram Stain Stat Lab 07/24/24 19:35 Uncollected Urine Culture Stat Lab 07/24/24 15:02 Received Radiology Impressions Chest X-Ray 07/24/24 11:56 IMPRESSION: 1. No acute cardiopulmonary finding. Chest CTA 07/24/24 12:49 IMPRESSION: 1. No evidence of pulmonary embolus. 2. Markedly dense aortic and coronary calcification. 3. Normal caliber thoracic aorta. 4. Chronic emphysematous changes. No focal infiltrates. Head CT 07/24/24 13:47 IMPRESSION: 1. No new hemorrhage 2. Small amount of residual edema in the area of prior hemorrhage RIGHT thalamus. 3. Small amount of residual intraventricular blood products LEFT greater than RIGHT occipital horn 4. Improved hydrocephalus compared to the prior exams 5. No new findings. Abdomen/Pelvis CT 07/24/24 19:19 IMPRESSION: 1. No bowel obstruction or inflammatory process associated with the bowel. 2. No free air or significant free fluid in the abdomen or pelvis. 3. No evidence of appendicitis. 4. No hydronephrosis or renal calculus. No stone in the bladder. 5. There is a macroscopic fat containing lesion in the left adrenal gland measuring up to 3.3 x 2.1 cm consistent with a myelolipoma. COMMENTS: Consistent with the [employer]'s Incidental Findings Committee white paper (J Am Di Radiol 2017): For any incidental adrenal lesion greater than or equal to 1 cm but less than or equal to 4 cm classified in this report as benign, likely benign, or containing fat (including classification as an adenoma or myelolipoma), no follow-up imaging is recommended per consensus recommendations based on imaging criteria. Further lab evaluation could be pursued if warranted based on clinical findings. Laboratory Results WBC 5.08 10^3/uL (3.29-11.43) 07/25/24 01:22 RBC 3.74 10^6/uL (3.85-5.65) L 07/25/24 01:22 Hgb 10.60 g/dL (11.27-16.99) L 07/25/24 01:22 Hct 34.8 % (36-47) L 07/25/24 01:22 MCV 93.0 fl (85-98) 07/25/24 01:22 MCH 28.3 pg (27-33) 07/25/24 01:22 MCHC 30.5 g/dL (30-55) 07/25/24 01: RDW 15.4 % (12.1-15.1) H 07/25/24 01:22 Plt Count 247 10^3/cmm (157-399) 07/25/24 01:22 MPV 9.9 fL (7.4-10.4) 07/25/24 01:22 Neut % (Auto) 62.1 % 07/25/24 01:22 Lymph % (Auto) 22.6 % 07/25/24 01:22 [place] % (Auto) 10.6 % 07/25/24 01:22 Eos % (Auto) 4.1 % 07/25/24 01:22 Baso % (Auto) 0.4 % 07/25/24 01: Neut # (Auto) 3.15 10^3/uL (1.8-7.7) 07/25/24 01:22 Lymph # (Auto) 1.2 10^3/uL (0.8-4.8) 07/25/24 01:22 [place] # (Auto) 0.5 10^3/uL (0.2-0.9) 07/25/24 01:22 Eos # (Auto) 0.2 10^3/uL (0.0-0.8) 07/25/24 01:22 Baso # (Auto) 0.0 10^3/uL (0.0-0.1) 07/25/24 01:22 Nucleated RBC % (auto) 0 % 07/25/24 01: Nucleated RBCs # 0.0 /100WBC 07/25/24 01:22 Specimen Type Arterial 07/24/24 13:01 Sample Site Heel, right 07/24/24 13:01 ABG pH 7.45 (7.35-7.45) 07/24/24 13:01 ABG pCO2 45.2 mmHg (35-45) H 07/24/24 13:01 ABG pO2 59.6 mmHg (80.0-100.0) L 07/24/24 13:01 ABG PO2/FiO2 Ratio 283 07/24/24 13:01 ABG HCO3 31.5 mmol/L (22-26) H 07/24/24 13:01 ABG Base Excess 6.7 mmol/L (-2.0-2.0) H 07/24/24 13:01 Allan Test Pos 07/24/24 13:01 Hematocrit 35.4 % (37-47) L 07/24/24 13:01 Hgb O2 Saturation 89.3 % (95-100) L 07/24/24 13:01 Carboxyhemoglobin 1.5 %THgb (0.4-20.1) 07/24/24 13:01 Methemoglobin 0.1 % (0.4-1.5) L 07/24/24 13:01 Total Hemoglobin 11.5 g/dL (12-16) L 07/24/24 13:01 O2 Delivery Device None 07/24/24 13:01 FiO2 21.0 % 07/24/24 13:01 Seed Packer ID glc 07/24/24 13:01 Sodium 139 mmol/L (136-145) 07/25/24 01:22 Potassium 3.6 mmol/L (3.5-5.1) 07/25/24 01:22 Chloride 99 mmol/L (98-107) 07/25/24 01:22 Carbon Dioxide 30 mmol/L (22-29) H 07/25/24 01:22 Anion Gap 13.6 (5-19) 07/25/24 01:22 BUN 8 mg/dL (8-23) 07/25/24 01:22 Creatinine 0.4 mg/dL (0.5-0.9) L 07/25/24 01:22 GFR Calculation Not Reportable 07/25/24 01:22 Glucose 126 mg/dL (65-115) H 07/25/24 01:22 POC Glucose 166 mg/dL (70-110) H 07/25/24 10:54 Estimat Average Glucose 137 07/24/24 12:06 Hemoglobin A1c 6.4 % (4.0-6.0) H 07/24/24 12:06 Calculated Osmolality 288 mOsm/kg (285-295) 07/25/24 01:22 Lactic Acid 2.4 mmol/L (0.5-2.2) H 07/24/24 12:06 Lactic Acid (Sepsis) 2.8 mmol/L (0.5-2.2) H 07/24/24 14:52 Calcium 8.1 mg/dL (8.5-10.5) L 07/25/24 01:22 Phosphorus 3.6 mg/dL (2.5-4.5) 07/25/24 01:22 Magnesium 1.2 mg/dL (1.7-2.3) L 07/25/24 01:22 Total Bilirubin 0.5 mg/dL (0.15-1.2) 07/25/24 01:22 AST 14 U/L (0-32) 07/25/24 01:22 ALT 10 U/L (0-33) 07/25/24 01:22 Alkaline Phosphatase 52 U/L (35-105) 07/25/24 01:22 Troponin T Baseline 80 ng/L (0-10) H 07/24/24 19:24 Troponin T 120 Minute 85.55 ng/L (0-10) H 07/24/24 21:23 Delta Troponin T 5.55 ABS# (0-10) 07/24/24 21:23 Troponin T Hi Sens 6Hr 82.17 ng/L (0-10) H 07/25/24 01:22 Troponin T Hi Sens 6Hr Delta 2.17 ng/L (0-12) 07/25/24 01:22 C-Reactive Protein 4.1 mg/L (0.0-4.9) 07/24/24 12:06 NT-Pro-B Natriuret Pep 1009 pg/mL (0-450) H 07/24/24 12:06 Total Protein 5.5 g/dL (6.6-8.7) L 07/25/24 01:22 Albumin 3.0 g/dL (3.5-5.2) L 07/25/24 01:22 Globulin 2.5 g/dL (1.3-4.6) 07/25/24 01:22 Triglycerides 136 mg/dL (0-150) 07/24/24 19:24 Cholesterol 127 mg/dL (0-200) 07/24/24 19:24 LDL Cholesterol, Calc 70 mg/dL (50-129) 07/24/24 19:24 HDL Cholesterol 30 mg/dL (60-100) L 07/24/24 19:24 LDL/HDL Ratio 2.33 RATIO (0.00-3.22) 07/24/24 19:24 Cholesterol/HDL Ratio 4.23 mg/dL (0.0-4.40) 07/24/24 19:24 Procalcitonin 0.09 ng/mL (0-0.5) 07/24/24 12:06 TSH 5.03 uIU/mL (0.27-4.20) H 07/24/24 19:24 Urine Color Yellow (Yellow) 07/24/24 15:02 Urine Appearance Clear (CLEAR) 07/24/24 15:02 Urine pH 7 (5-7) 07/24/24 15:02 Ur Specific [place] 1.010 (1.005-1.030) 07/24/24 15:02 Urine Protein Neg (Negative) 07/24/24 15:02 Urine Glucose (UA) 4+ (Normal) H 07/24/24 15:02 Urine Ketones Negative (Negative) 07/24/24 15:02 Urine Blood Neg (Negative) 07/24/24 15:02 Urine Nitrate Negative (Negative) 07/24/24 15:02 Urine Bilirubin Neg (Negative) 07/24/24 15:02 Urine Urobilinogen 4 mg/dL (Negative) H 07/24/24 15:02 Ur Leukocyte Esterase 1+ (Negative) H 07/24/24 15:02 Urine RBC 0-2 /hpf (0-2) 07/24/24 15:02 Urine WBC 51-100 /hpf (0-5) H 07/24/24 15:02 Ur Squamous Epith Cells 0-5 /hpf (0-5) 07/24/24 15:02 Amorphous Sediment Not Reportable 07/24/24 15:02 Urine Bacteria None seen /hpf (NONE) 07/24/24 15:02 Hyaline Casts 1.21 /lpf 07/24/24 15:02 Urine Yeast Trace /hpf 07/24/24 15:02 Influenza A (PCR) Negative (Negative) 07/24/24 12:51 Influenza Type B (PCR) Negative (Negative) 07/24/24 12:51 RSV (PCR) Negative (Negative) 07/24/24 12:51 SARS-CoV-2 (PCR) Negative (Negative) 07/24/24 12:51 Vitals Last Vital Signs Temp 98.7 F 07/25/24 07:26 Pulse 78 07/25/24 07:26 Resp 15 07/25/24 07:26 BP 102/54 07/25/24 07:26 Pulse Ox 96 07/25/24 07:26 O2 Del Method Nasal Cannula 07/25/24 07:26 O2 Flow Rate 2 07/25/24 07:26 Discharge Plan Discharge Patient Disposition: Home Condition: Stable Prescriptions: New levofloxacin 750 mg tablet 750 mg PO DAILY 5 Days Qty: 5 0RF erythromycin 5 mg/gram (0.5 %) ointment 1 applic ophthalmic (eye) Q6H Qty: 3.5 0RF Rx Instructions: right eye albuterol sulfate [Ventolin HFA] 90 mcg/actuation HFA aerosol inhaler 1 inh inhalation Q6H PRN (Reason: shortness of breath or wheezing) Qty: 8.5 0RF fluticasone propion-salmeterol [Advair Diskus] 100-50 mcg/dose blister with device 1 inh inhalation DAILY Qty: 60 0RF Thick and Easy Powder 1 ea PO TIDWM 30 Days Qty: 2724 0RF Continued ergocalciferol (vitamin D2) 50,000 unit capsule 50,000 unit PO DIRECTED Rx Instructions: every 2 weeks metformin 1,000 mg tablet 1,000 mg PO DAILY levothyroxine 50 mcg tablet 50 mcg PO DAILY potassium chloride 10 mEq tablet,ER particles/crystals 10 meq PO BID Eliquis 5 mg tablet 5 mg PO BID cyanocobalamin (vitamin B-12) 1,000 mcg tablet 1,000 mcg PO DAILY Qty: 60 3RF atorvastatin 80 mg tablet 80 mg PO DAILY omeprazole 40 mg capsule,delayed release(DR/EC) 40 mg PO DAILY amlodipine 5 mg tablet 5 mg PO DAILY hydrochlorothiazide 25 mg tablet 25 mg PO DAILY furosemide 20 mg tablet 20 mg PO DAILY escitalopram oxalate 5 mg tablet 5 mg PO DAILY budesonide-formoterol [Symbicort] 80-4.5 mcg/actuation HFA aerosol inhaler 2 inh INHALATION BID insulin glargine [Lantus Solostar U-100 Insulin] 100 unit/mL (3 mL) insulin pen 10 unit SUBCUT DAILY Jardiance 25 mg tablet 25 mg PO DAILY Held Humira 40 mg/0.8 mL syringe kit See Rx Instructions .ROUTE .COMPLEX Qty: 2 5RF Hold Instructions: Resume on 08/03/24. Dose Instruction: INJECT 40 MG UNDER SKIN EVERY 14 DAYS Rx Instructions: INJECT 40 MG UNDER SKIN EVERY 14 DAYS Discharge Orders: Discharge Order (Routine); Ordered 07/25/24 Ordered By: Hari Talavera Other Ambulatory Orders: DME: Oxygen (Order) Location: None Selected Ordered By: Hari Talavera Speech Language Pathology Eval and Treat Outpatient (Order) Timeframe: 1 Day Facility: [facility] - Location: [facility] Ordered By: Hari Talavera Referrals: Emily Mercer MD [Primary Care Provider] - (We have notified your physician's clinic of the need for a follow-up appointment to be scheduled. If you have not heard from them within the next 2 business days, please call them directly. ) Discharge Diet: Advance as tolerated and As Directed Discharge Activity: Resume usual activity Patient Instructions: Albuterol (By breathing), Erythromycin (Into the eye), Levofloxacin (By mouth) (Levaquin, Levaquin Leva-stacy), Fluticasone/Salmeterol (By breathing), Using Oxygen at Home (GEN), Level 3 National Dysphagia Diet (GEN), Dysphagia (ED), Opioid Safety Activity Restrictions/Additional Instructions: - Please adhere to dysphagia level 3 diet, slightly thickened, aspiration precautions, - Please follow-up with speech therapy - Please monitor blood sugars closely - Please take antibiotics as prescribed - Please use right eyedrops as prescribed - Follow-up with primary care provider Discharge Attestations Time Spent in Discharge Care*: greater than 30 min Quality Metrics Clinical Quality Measures [ No reported AMI, CVA or VTE this stay] Coding Level of Care Code 12933 Total time (in minutes) for Discharge: 45 Diagnoses Hypoxia R09.02 UTI (urinary tract infection) N30.00 Hematuria presence: without hematuria Urinary tract infection type: acute cystitis Sepsis A41.9 Intracranial hemorrhage I62.9 Altered mental status R41.82
[2024-07-25] MEDS: insulin lispro 100 unit/1 mL SUBCUT (11:52)
[2024-07-25 16:45] LABS: Glucose Point of Care 114 mg/dL (70-110)
--- NOTE | 2024-07-25 17:29 | PC.NURSE ---
pt waiting on [facility] for transport
--- NOTE | 2024-07-25 19:19 | PC.NURSE ---
Patient's daughter called at 1917, per request, to let her know EMS was here to get the patient. All questions answered by this nurse.
--- NOTE | 2024-07-26 13:50 | PC.SOCIAL ---
Cyber access Completed Pt discharged home on Saturday & qualified for O2 2lnc at time of d/c. Pt had not been seen by CM. Occupational Therapist Assistants completed Getable access & faxed certificate to HOME. Pre-Cert number assigned: [id number]
== END 2024-07-25 19:30 | disposition home or self-care (01) | DRG 690 ==
LOC: ER 19:20 → MEDSURG 19:35
PROVIDERS: Admitting Provider Family Medicine; Emergency Provider Emergency Medicine; PCP Internal Medicine; Visit Provider Family Medicine
DX: N39.0 Urinary tract infection, site not specified (principal); I82.532 Chronic embolism and thrombosis of left popliteal vein; R09.02 Hypoxemia; Z86.711 Personal history of pulmonary embolism; Z86.73 Personal history of transient ischemic attack (TIA), and cerebral infarction without residual deficits; Z79.4 Long term (current) use of insulin; Z79.01 Long term (current) use of anticoagulants; L40.50 Arthropathic psoriasis, unspecified; E11.9 Type 2 diabetes mellitus without complications; J44.9 Chronic obstructive pulmonary disease, unspecified; I10 Essential (primary) hypertension; Z87.891 Personal history of nicotine dependence; E78.5 Hyperlipidemia, unspecified; R41.82 Altered mental status, unspecified
CPT/HCPCS: 36415; 36416; 36600; 70450; 71045; 71275; 74176; 80053; 80061; 81001; 82805; 82962; 83036; 83605; 83735; 83880; 84100; 84145; 84443; 84484; 85025; 86140; 87040; 87086; 87637; 92610; 93005; 93971; 94760; 96372; 96374; 97161; 97165; 99285; J0696; J1815; J2543; J7120; J9999

== ENCOUNTER 2024-09-02 15:50 | Emergency (ER) | payer MEDICAID, SELFPAY ==
[2024-09-02 15:52] VITALS: BP 96/42; PULSE 78; RESP 16; TEMP 36.6; O2SAT 94; BMI 29.0
--- NOTE | 2024-09-02 15:54 | XRR_ITS ---
PROCEDURE INFORMATION: Exam: XR Chest Exam date and time: 09/02/2024 3:56 PM Age: 78 years old Clinical indication: Cough and dyspnea; Additional info: Dyspnea/cough TECHNIQUE: Imaging protocol: Radiologic exam of the chest. Views: 1 view. COMPARISON: CT angio chest PE protcl [id number] 07/24/2024 1:56 PM FINDINGS: Lungs: Streaky left basilar opacities favor atelectasis. No focal consolidation. Pleural spaces: Unremarkable. No pleural effusion. No pneumothorax. Heart/Mediastinum: Unremarkable. No cardiomegaly. Vasculature: Tortuous aorta with atherosclerotic calcifications. Bones/joints: Unremarkable. XR/XR chest 1V portable [id number] IMPRESSION: No acute cardiopulmonary findings.
--- NOTE | 2024-09-02 15:54 | CTR_ITS ---
PROCEDURE INFORMATION: Exam: CT Abdomen And Pelvis With Contrast Exam date and time: 09/02/2024 5:07 PM Age: 78 years old Clinical indication: Abdominal pain; Generalized; Additional info: Abd pain TECHNIQUE: Imaging protocol: Computed tomography of the abdomen and pelvis with contrast. Radiation optimization: All CT scans at this facility use at least one of these dose optimization techniques: automated exposure control; mA and/or kV adjustment per patient size (includes targeted exams where dose is matched to clinical indication); or iterative reconstruction. Contrast material: OMNI 350; Contrast volume: 100 ml; Contrast route: INTRAVENOUS (IV); COMPARISON: 1. CT abdomen pelvis wo con [id number] 07/24/2024 8:[address] angio chest PE protcl [id number] 07/24/2024 1:56 PM RADIATION DOSE METRICS: Total DLP (mGy-cm): 712.9 FINDINGS: Lungs: Stable 5 mm right lower lobe nodule on series 3, image 7. Heart: Aortic valve calcifications. Coronary arteries: Coronary artery calcifications. Diaphragm: Small sliding-type hiatal hernia. Liver: Normal. No mass. Gallbladder and biliary ducts: Normal. No calcified stones. No ductal dilation. Pancreas: The pancreas is atrophic. No pancreatic ductal dilatation. Spleen: Calcified splenic granulomas. Normal spleen size. Adrenal glands: Stable left adrenal nodule with areas of fat attenuation measuring up to 3.3 cm. Kidneys and ureters: Subcentimeter renal cortical hypodensities remain too small to characterize but likely represent cysts. No hydronephrosis. Stomach and bowel: Sigmoid diverticulosis without evidence of acute diverticulitis. No evidence of bowel obstruction. Appendix: No evidence of appendicitis. Intraperitoneal space: Unremarkable. No free air. No significant fluid collection. Vasculature: Tortuous thoracic aorta with diffuse atherosclerotic calcifications. Diffuse aortoiliac calcifications. 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 Lymph nodes: Unremarkable. No enlarged lymph nodes. Urinary bladder: Unremarkable as visualized. Reproductive: Unremarkable as visualized. Bones/joints: Similar superior endplate compression deformity at L4. Multilevel lumbar spondylosis. Diffuse osseous demineralization. No acute or aggressive osseous lesion. Soft tissues: Unremarkable. CT/CT abdomen pelvis w con* [id number] IMPRESSION: 1. No acute findings in the abdomen/pelvis. 2. Stable 5 mm right lower lobe nodule. For patients at low risk (minimal or absent history of smoking and of other known risk factors), no routine follow-up is indicated. For patients at high risk (history of smoking or of other known risk factors), consider optional CT Chest at 12 months. (Reference: Mervin) 3. Sigmoid diverticulosis without diverticulitis. 4. Additional nonemergent findings as above are similar to prior. REFERENCES: Mervin Disla, et al. Guidelines for Management of Incidental Pulmonary Nodules Detected on CT Images: From the Fleischner Society 2017. Radiology. 2017;284(1):228-243.
[2024-09-02 16:05] LABS: Basophils % 0.5 %; Eosinophils # 0.1 10^3/uL (0.0-0.8); Eosinophils % 0.6 %; Hematocrit 37.1 % (36-47); Lymphocytes # 2.2 10^3/uL (0.8-4.8); Lymphocytes % 25.9 %; Mean Corpuscular HGB Conc 31.5 g/dL (30-55); Mean Corpuscular Hemoglobin 27.9 pg (27-33); Mean Corpuscular Volume 88.3 fl (85-98); Mean Platelet Volume 10.4 fL (7.4-10.4); Monocytes # 0.7 10^3/uL (0.2-0.9); Monocytes % 7.9 %; Neutrophils # 5.56 10^3/uL (1.8-7.7); Neutrophils % 64.8 %; Nucleated Red Blood Cells % 0 %; Platelet Count 407 10^3/cmm (157-399); Red Cell Distribution Width 14.7 % (12.1-15.1); White Blood Count 8.58 10^3/uL (3.29-11.43)
--- NOTE | 2024-09-02 16:09 | ECG_ITS ---
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 Measurements Intervals [place] Rate: 76 P: 79 [place]: 167 QRS: -7 QRSD: 96 T: 73 QT: 413 QTc: 465 Interpretive Statements SINUS RHYTHM WITH OCCASIONAL SUPRAVENTRICULAR PREMATURE COMPLEXES INFERIOR MYOCARDIAL INFARCTION , PROBABLY OLD [40+ ms Q WAVE AND/OR ST/T ABNORMALITY IN II/aVF] Compared to ECG 07/24/2024 19:37:02 No significant changes Electronically Signed On 09-03-2024 18:08:09 CDT by Kassidy Frank M.D. [email or web address] [id number]
[2024-09-02 16:27] VITALS: BP 106/62; PULSE 76; O2SAT 98
[2024-09-02 16:30] LABS: Alanine Aminotransferase 7 U/L (0-33); Alkaline Phosphatase 64 U/L (35-105); Aspartate Amino Transferase 16 U/L (0-32); Blood Urea Nitrogen 8 mg/dL (8-23); Calcium 8.7 mg/dL (8.5-10.5); Carbon Dioxide 27 mmol/L (22-29); Chloride 92 mmol/L (98-107); Creatinine Clr Calc Pharmacy 63.4408; Globulin 3.5 g/dL (1.3-4.6); Glucose 119 mg/dL (65-115); Lipase 8 U/L (13-60); Osmolality Calculated 275 mOsm/kg (285-295); Sodium 133 mmol/L (136-145); Total Bilirubin 0.6 mg/dL (0.15-1.2); Total Protein 6.5 g/dL (6.6-8.7)
[2024-09-02 17:00] VITALS: BP 129/52; PULSE 65; RESP 16; O2SAT 100
--- NOTE | 2024-09-02 17:04 | W.ED.GIBLEED ---
HPI - GI Bleed General: Chief complaint: GI Bleed Stated complaint: GI Bleed Time Seen by Provider: 09/02/24 15:54 History of Present Illness: Mini Hair, a patient with a history of brain aneurysm and recent hospice care, presents with concerns of a possible gastrointestinal (GI) bleed and persistent low blood pressure. The patient was recently admitted to a half-way where she tested positive for blood in her stool multiple times. The patient's blood pressure has been consistently low, reminiscent of her previous episode when she had a brain aneurysm and developed sepsis. Her mental status is reported to be altered from her baseline; typically, she is oriented to person, place, and time. The family notes that she is not her usual self, although she currently recognizes family members and knows her own identity. There is no reported head pain or nausea. The patient has a history of hematochezia, which was previously attributed to a brain bleed by a doctor at [facility]. It is unclear if she has had blood in her stool today, but half-way staff report positive stool guaiac tests. The patient does not report any abdominal pain. Regarding treatment adherence, it is noted that the half-way has not been administering her blood pressure medication (midodrine) regularly, which may explain her persistent hypotension. The patient was previously on hospice care due to difficulty attending medical appointments because of her low blood pressure. Recent healthcare interactions include a transfer to the current half-way and previous care at [facility], where she has a neurologist. The patient is currently on blood thinners, which complicates potential surgical interventions if a bleed is identified. Related Data Home Medications ?Medication ?Instructions ?Recorded ?Confirmed ergocalciferol (vitamin D2) 1,250 50,000 unit PO DIRECTED 05/04/19 07/24/24 mcg (50,000 unit) capsule metformin 1,000 mg tablet 1,000 mg PO DAILY 05/04/19 07/24/24 levothyroxine 50 mcg tablet 50 mcg PO DAILY 06/23/19 07/24/24 amlodipine 5 mg tablet 5 mg PO DAILY 06/09/24 07/24/24 atorvastatin 80 mg tablet 80 mg PO DAILY 06/09/24 07/24/24 budesonide-formoterol HFA 80 2 inh inhalation BID 06/09/24 07/24/24 mcg-4.5 mcg/actuation aerosol inhaler (Symbicort) empagliflozin 25 mg tablet 25 mg PO DAILY 06/09/24 07/24/24 (Jardiance) escitalopram oxalate 5 mg tablet 5 mg PO DAILY 06/09/24 07/24/24 furosemide 20 mg tablet 20 mg PO DAILY 06/09/24 07/24/24 hydrochlorothiazide 25 mg tablet 25 mg PO DAILY 06/09/24 07/24/24 insulin glargine 100 unit/mL (3 10 unit SUBCUT DAILY 06/09/24 07/24/24 mL) subcutaneous pen (Lantus Solostar U-100 Insulin) omeprazole 40 mg capsule,delayed 40 mg PO DAILY 06/09/24 07/24/24 release apixaban 5 mg tablet (Eliquis) 5 mg PO BID 07/15/24 07/24/24 potassium chloride 10 mEq 10 meq PO BID 07/15/24 07/24/24 tablet,extended release(part/cryst) Previous Rx's ?Medication ?Instructions ?Recorded cyanocobalamin (vitamin B-12) 1,000 mcg PO DAILY #60 tabs 01/02/24 1,000 mcg tablet adalimumab 40 mg/0.8 mL See Rx Instructions .Route 05/12/24 subcutaneous syringe kit (Humira) .COMPLEX #2 ea Held on 07/25/24. Instructions: Resume on 08/03/24. albuterol sulfate 90 mcg/actuation 1 inh inhalation Q6H PRN shortness 07/25/24 aerosol inhaler (Ventolin HFA) of breath or wheezing #8.5 grams erythromycin 5 mg/gram (0.5 %) eye 1 applic ophthalmic (eye) Q6H #3.5 07/25/24 ointment (3.5 gram tube) grams fluticasone 100 mcg-salmeterol 50 1 inh inhalation DAILY #60 ea 07/25/24 mcg/dose blistr powdr for inhalation (Advair Diskus) Allergies Allergy/AdvReac Type Severity Reaction Status Date / Time banana Allergy Intermediate ADR-Vomitin Verified 05/12/24 11:40 g Egg Derived Allergy Intermediate ADR-Itching Verified 05/12/24 11:40 Latex, Natural Rubber Allergy ADR-Itching Verified 07/24/24 20:32 Review of Systems General: Reports: 10 or more systems reviewed and unremarkable except in HPI and below PFSH ED PFSH: Medical History Cerebral infarction, left hemisphere Cerebrovascular event OA (osteoarthritis) of knee Psoriatic arthritis Psoriasis Osteoarthritis Insulin dependent diabetes mellitus COPD (chronic obstructive pulmonary disease) Hypertension High risk medication use Immunization counseling Surgical History H/O tubal ligation Family History Other Cancer Heart disease Hypertension Denies family history of Rheumatoid arthritis Lupus Social History Smoking and tobacco/nicotine status: former use of tobacco/nicotine Alcohol intake: never Substance/Drug Use: unknown Physical Exam Const: COMMON NORMALS: no acute distress, patient oriented x3, healthy appearing, alert and well nourished HENMT: COMMON NORMALS: normocephalic HEAD & SCALP: normocephalic Eye: COMMON NORMALS: EOMs intact bilaterally Neck/C-Spine: COMMON NORMALS: full ROM and supple Resp: COMMON NORMALS: normal respiratory effort, No retractions and clear to auscultation bilaterally AUSCULTATION: clear to auscultation bilaterally Cardio: COMMON NORMALS: regular rate, regular rhythm, No gallops present (Cardio) and No murmurs present (Cardio) RATE: regular rate RHYTHM: regular rhythm GI: COMMON NORMALS: Soft to palpation and non-tender PALPATION: Yes Soft to palpation Extremity: GENERAL: Yes normal exam except as noted Neuro: COMMON NORMALS: patient oriented x3 SENSORIUM/ORIENTATION: Yes alert Skin: COMMON NORMALS: no rashes or lesions noted GENERAL SKIN EXAM: no rashes or lesions noted Course Vital Signs: Vital signs: Vital Signs Temperature 97.8 F 09/02/24 15:52 Pulse Rate 75 09/02/24 18:00 Respiratory Rate 16 09/02/24 17:00 Blood Pressure 111/60 09/02/24 18:00 Pulse Oximetry 99 09/02/24 18:00 Oxygen Delivery Me thod Nasal Cannula 09/02/24 15:52 Oxygen Flow Rate 2 09/02/24 15:52 MDM - GI Bleed Medical Decision Making 1. Hypotension Assessment: Patient has been experiencing persistently low blood pressure, similar to previous episodes associated with brain aneurysm and sepsis. The hypotension is likely exacerbated by inconsistent administration of prescribed antihypotensive medication (midodrine). Current MAP is 73, indicating improved cerebral perfusion. The hypotension may be contributing to the patient's altered mental status. - Ensure regular administration of midodrine as prescribed - Continue oxygen therapy - Monitor blood pressure closely 2. Suspected GI Bleed Assessment: Patient has had multiple positive stool guaiac tests at the half-way, indicating possible GI bleed. However, hemoglobin is currently normal, and BUN is not elevated, which is atypical for an active GI bleed. The source of bleeding is unclear, with possibilities including hemorrhoids or a minimal GI bleed. Previous hematochezia was attributed to a brain bleed by doctors at [facility]. - ABd CT scan negative for acute process - hemorrhoids present 3. Altered Mental Status Assessment: Patient's mental status is reported as not at her baseline. At the time of exam she was back at her baseline of knows everyone, her location, name, and date of . The confusion may be secondary to hypotension rather than an acute brain bleed, as her mental status has shown improvement with increased blood pressure. Hypoxia could also be contributing to her altered mental state. - Continue oxygen therapy - Monitor mental status closely - Ensure adequate blood pressure control 4. History of Brain Aneurysm and Anticoagulation Assessment: Patient has a history of brain aneurysm and is currently on blood thinners. This complicates management of potential bleeding, as continuing anticoagulation could worsen a bleed, while discontinuing it could increase risk of thrombotic events. Patient has a neurologist at [facility]. - Discuss with patient and family about goals of care and preferences regarding management of potential brain bleeds - Consider risks and benefits of continuing anticoagulation based on CT scan results - Consult with patient's neurologist at [facility] for guidance on management Lab Data 09/02/24 15:58 09/02/24 15:58 Radiology Impressions Abdomen/Pelvis CT 09/02/24 15:54 IMPRESSION: 1. No acute findings in the abdomen/pelvis. 2. Stable 5 mm right lower lobe nodule. For patients at low risk (minimal or absent history of smoking and of other known risk factors), no routine follow-up is indicated. For patients at high risk (history of smoking or of other known risk factors), consider optional CT Chest at 12 months. (Reference: Mervin) 3. Sigmoid diverticulosis without diverticulitis. 4. Additional nonemergent findings as above are similar to prior. REFERENCES: Mervin Disla, et al. Guidelines for Management of Incidental Pulmonary Nodules Detected on CT Images: From the Fleischner Society 2017. Radiology. 2017;284(1):228-243. Chest X-Ray 09/02/24 15:54 IMPRESSION: No acute cardiopulmonary findings. Laboratory Results WBC 8.58 10^3/uL (3.29-11.43) 09/02/24 15:58 RBC 4.20 10^6/uL (3.85-5.65) 09/02/24 15:58 Hgb 11.70 g/dL (11.27-16.99) 09/02/24 15:58 Hct 37.1 % (36-47) 09/02/24 15:58 MCV 88.3 fl (85-98) 09/02/24 15:58 MCH 27.9 pg (27-33) 09/02/24 15:58 MCHC 31.5 g/dL (30-55) 09/02/24 15:58 RDW 14.7 % (12.1-15.1) 09/02/24 15:58 Plt Count 407 10^3/cmm (157-399) H 09/02/24 15:58 MPV 10.4 fL (7.4-10.4) 09/02/24 15:58 Neut % (Auto) 64.8 % 09/02/24 15:58 Lymph % (Auto) 25.9 % 09/02/24 15:58 [place] % (Auto) 7.9 % 09/02/24 15:58 Eos % (Auto) 0.6 % 09/02/24 15:58 Baso % (Auto) 0.5 % 09/02/24 15:58 Neut # (Auto) 5.56 10^3/uL (1.8-7.7) 09/02/24 15:58 Lymph # (Auto) 2.2 10^3/uL (0.8-4.8) 09/02/24 15:58 [place] # (Auto) 0.7 10^3/uL (0.2-0.9) 09/02/24 15:58 Eos # (Auto) 0.1 10^3/uL (0.0-0.8) 09/02/24 15:58 Baso # (Auto) 0.0 10^3/uL (0.0-0.1) 09/02/24 15:58 Nucleated RBC % (auto) 0 % 09/02/24 15:58 Nucleated RBCs # 0.0 /100WBC 09/02/24 15:58 Sodium 133 mmol/L (136-145) L 09/02/24 15:58 Potassium 4.0 mmol/L (3.5-5.1) 09/02/24 15:58 Chloride 92 mmol/L (98-107) L 09/02/24 15:58 Carbon Dioxide 27 mmol/L (22-29) 09/02/24 15:58 Anion Gap 18.0 (5-19) 09/02/24 15:58 BUN 8 mg/dL (8-23) 09/02/24 15:58 Creatinine 0.3 mg/dL (0.5-0.9) L 09/02/24 15:58 GFR Calculation Not Reportable 09/02/24 15:58 Glucose 119 mg/dL (65-115) H 09/02/24 15:58 Calculated Osmolality 275 mOsm/kg (285-295) L 09/02/24 15:58 Calcium 8.7 mg/dL (8.5-10.5) 09/02/24 15:58 Total Bilirubin 0.6 mg/dL (0.15-1.2) 09/02/24 15:58 AST 16 U/L (0-32) 09/02/24 15:58 ALT 7 U/L (0-33) 09/02/24 15:58 Alkaline Phosphatase 64 U/L (35-105) 09/02/24 15:58 Total Protein 6.5 g/dL (6.6-8.7) L 09/02/24 15:58 Albumin 3.0 g/dL (3.5-5.2) L 09/02/24 15:58 Globulin 3.5 g/dL (1.3-4.6) 09/02/24 15:58 Lipase 8 U/L (13-60) L 09/02/24 15:58 All radiology interpretation(s) finalized by discharge Discharge Plan Discharge Patient Disposition: Home Clinical Impression: Chronic hypotension, Acute alteration in mental status Hemorrhoids Qualifiers: Hemorrhoid type: unspecified Qualified Code(s): K64.9 - Unspecified hemorrhoids Condition: Stable Prescriptions: No Action ergocalciferol (vitamin D2) 50,000 unit capsule 50,000 unit PO DIRECTED Rx Instructions: every 2 weeks metformin 1,000 mg tablet 1,000 mg PO DAILY levothyroxine 50 mcg tablet 50 mcg PO DAILY Humira 40 mg/0.8 mL syringe kit See Rx Instructions .ROUTE .COMPLEX Qty: 2 5RF Dose Instruction: INJECT 40 MG UNDER SKIN EVERY 14 DAYS Rx Instructions: INJECT 40 MG UNDER SKIN EVERY 14 DAYS potassium chloride 10 mEq tablet,ER particles/crystals 10 meq PO BID Eliquis 5 mg tablet 5 mg PO BID erythromycin 5 mg/gram (0.5 %) ointment 1 applic ophthalmic (eye) Q6H Qty: 3.5 0RF Rx Instructions: right eye albuterol sulfate [Ventolin HFA] 90 mcg/actuation HFA aerosol inhaler 1 inh inhalation Q6H PRN (Reason: shortness of breath or wheezing) Qty: 8.5 0RF fluticasone propion-salmeterol [Advair Diskus] 100-50 mcg/dose blister with device 1 inh inhalation DAILY Qty: 60 0RF cyanocobalamin (vitamin B-12) 1,000 mcg tablet 1,000 mcg PO DAILY Qty: 60 3RF atorvastatin 80 mg tablet 80 mg PO DAILY omeprazole 40 mg capsule,delayed release(DR/EC) 40 mg PO DAILY amlodipine 5 mg tablet 5 mg PO DAILY hydrochlorothiazide 25 mg tablet 25 mg PO DAILY furosemide 20 mg tablet 20 mg PO DAILY escitalopram oxalate 5 mg tablet 5 mg PO DAILY budesonide-formoterol [Symbicort] 80-4.5 mcg/actuation HFA aerosol inhaler 2 inh INHALATION BID insulin glargine [Lantus Solostar U-100 Insulin] 100 unit/mL (3 mL) insulin pen 10 unit SUBCUT DAILY Jardiance 25 mg tablet 25 mg PO DAILY Discharge Orders: Discharge ED (Routine); Ordered 09/02/24 Ordered By: Ta Presley Referrals: Emily Mercer MD [Primary Care Provider, Internal Medicine] Discharge Diet: Advance as tolerated Discharge Activity: Resume usual activity Patient Instructions: Opioid Safety, Pain Management Activity Restrictions/Additional Instructions: Your confusion was likely secondary to hypotension. Please take medicines as prescribed by your physician. Please follow-up with your primary care provider for management of hemorrhoids. Return to the emergency department for any new or worsening symptoms. Print Language: Thai Coding Level of Care Code ED Break Up Worker for Rhonda Fried
[2024-09-02] MEDS: iohexol 350 mg/mL 500 mL Btl (per mL) IV (17:10)
[2024-09-02 18:00] VITALS: BP 111/60; PULSE 75; O2SAT 99
[2024-09-02 18:32] LABS: Bilirubin Urine Negative (Negative); Blood Urine 1+ (Negative); Glucose Urine UA 3+ (Normal); Ketones Urine 1+ (Negative); Leukocyte Esterase Urine 2+ (Negative); Nitrate Urine Negative (Negative); Protein Urine 1+ (Negative); Urine Appearance Turbid (CLEAR); Urine Color Yellow (Yellow)
[2024-09-02 18:34] LABS: Add Urine Microscopic? YES; Hyaline Casts Urine 0-4 /lpf; WBC Urine >100 /hpf (0-5)
[2024-09-02 18:43] LABS: Specific Gravity, Urine 1.053 (1.005-1.030)
[2024-09-02 18:44] LABS: Add Urine Culture? Yes; Bacteria Urine 1+ /hpf
[2024-09-02 19:06] VITALS: BP 110/94; PULSE 77; RESP 16; O2SAT 97
[2024-09-02 20:05] VITALS: BP 110/67; PULSE 80; RESP 16; O2SAT 99
== END 2024-09-02 20:08 | disposition home or self-care (01) ==
PROVIDERS: Family Medicine; Emergency Provider General Practice; PCP Internal Medicine
DX: I95.89 Other hypotension (principal); R41.82 Altered mental status, unspecified; K64.9 Unspecified hemorrhoids; Z79.84 Long term (current) use of oral hypoglycemic drugs; Z79.01 Long term (current) use of anticoagulants; Z79.4 Long term (current) use of insulin; Z87.891 Personal history of nicotine dependence; J44.9 Chronic obstructive pulmonary disease, unspecified; I10 Essential (primary) hypertension; Z86.73 Personal history of transient ischemic attack (TIA), and cerebral infarction without residual deficits
CPT/HCPCS: 71045; 74177; 80053; 81001; 83690; 85025; 87086; 93005; 99285

== ENCOUNTER 2024-11-18 14:30 | Emergency (ER) | payer MEDICAID, SELFPAY ==
--- OUTSIDE RECORDS SUMMARY | 2024-05-05 09:08 | XMS_ITS | Continuity of Care Document ---
Author Name [facility] Address [address] [place] [address] Organization [facility] Care Team Providers Care Station Cook Name Role Phone [facility] Unavailable Unavailable Problems Problem Status Onset Date Problem Type Date of Resolution Comments Source Preprocedural examination done 02/10/2024 Diagnosis Carotid artery occlusion (disorder) 02/10/2024 Diagnosis Medications Medication Details Route Status Patient Instructions Ordering Provider Order Date Source atorvastatin 80 MG Oral Tablet Refill(s) 0 Active 02/07/20 24 [facility] Levothyroxine Sodium 0.05 MG Oral Tablet Refill(s) 0 Active 02/07/20 24 [facility] Aspirin 81 mg, Oral, Daily, Refill(s) 0 Active 02/07/20 24 [facility] Losartan Potassium 50 MG Oral Tablet Refill(s) 0 Active 02/07/20 24 [facility] omeprazole 40 MG Delayed Release Oral Capsule Refill(s) 0 Active 02/07/20 24 [facility] 3 ML insulin glargine 100 UNT/ML Pen Injector [Lantus] Refill(s) 0 Active 02/07/20 24 [facility] ergocalciferol 1.25 MG Oral Capsule Refill(s) 0 Active 02/07/20 24 [facility] 0.8 ML adalimumab 50 MG/ML Prefilled Syringe [Humira] Refill(s) 0 Active 02/07/20 24 [facility] empagliflozin 10 MG Oral Tablet [Jardiance] Refill(s) 0 Active 02/07/20 24 [facility] clopidogrel 75 MG Oral Tablet Refill(s) 0 Active 02/07/20 24 [facility] Furosemide 20 MG Oral Tablet Refill(s) 0 Active 02/07/20 24 [facility] Escitalopram 5 MG Oral Tablet Refill(s) 0 Active 10/25/20 24 [facility] Metformin hydrochloride 1000 MG Oral Tablet Refill(s) 0 Active 02/07/[facility] Results Order Name Results Value Reference Range Date Interpretation Comments Source US Carotid US Carotid Ultrasound Accession # Exam Date/Time Procedure Ordering Provider [id number] 02/07/2024 10:46 CDT US Carotid Chelsea Hebert Reason For Exam (US Carotid) carotid stenosis Report EXAMINATION: Carotid ultrasound INDICATION: carotid stenosis COMPARISON: None TECHNIQUE: Grayscale, color and spectral Doppler evaluation of the carotid systems was performed, including evaluation of the common carotid arteries (CCA), internal carotid arteries (ICA), external carotid arteries (ECA) and vertebral arteries. FINDINGS: Technically difficult evaluation of the left carotid system. RIGHT CAROTID SYSTEM: Grayscale: Plaque Quantity: Small Plaque Character: Hyperechoic, mildly irregular PEAK SYSTOLIC/DIAST OLIC VELOCITIES: Right CCA Proximal PSV/EDV: 105 cm/s/17 cm/s Right CCA Distal PSV/EDV: 116 cm/s/18 cm/s Right Bulb PSV/EDV: 111 cm/s/20 cm/s Right ICA Proximal PSV/EDV: 121 cm/s/23 cm/s Right ICA Mid PSV/EDV: 199 cm/s/49 cm/s Right ICA Distal PSV/EDV: 268 cm/s/53 cm/s Right ECA PSV/EDV: 103 cm/s/0 cm/s Right Vertebral Artery PSV/EDV: 61 cm/s/14 cm/s Right Vertebral Artery: Normal antegrade flow. LEFT CAROTID SYSTEM: Grayscale: Plaque Quantity: Mild Plaque Character: Hyperechoic, mildly irregular PEAK SYSTOLIC/DIAST OLIC VELOCITIES: Left CCA Proximal PSV/EDV: 32 cm/s/10 cm/s Left CCA Distal PSV/EDV: 25 cm/s/10 cm/s Left Bulb PSV/EDV: 33 cm/s/19 cm/s Left ICA Proximal PSV/EDV: 20 cm/s/8 cm/s parvus tardus waveforms Left ICA Mid PSV/EDV: 117 cm/s/71 cm/s Left ICA Distal PSV/EDV: 69 cm/s/35 cm/s Left ECA PSV/EDV: 25 cm/s/ Left Vertebral Artery PSV/EDV: 123 cm/s/25 cm/s Left Vertebral Artery: Antegrade with high resistant waveforms.. IMPRESSION: 1. Right ICA 50 to 79% stenosis. 2. Technically difficult left ICA evaluation, but suspect left ICA 50 to 79% stenosis. Waveforms of the left ICA suggests more proximal Ultrasound Report stenosis. 3. Left vertebral artery demonstrates elevated peak systolic velocities and high resistant waveforms, consistent with hemodynamicall y significant stenosis. I have personally reviewed the images and attest to the contents of this report. * * *Final Report* * * Electronically Signed by: Aj Prasad MD Signed on: 02/07/24 12:01 2023 10:06: 04 [facility] Consultation Notes Results Value Date Source Vascular Surgery Clinic Note Chief Compl aint eval carotid stenosis History of Present Illness 78-year-old female who presented to an outside hospital about a month ago with strokelike symptoms on the right upper extremity. She described numbness and weakness for about 24 hours. She was hemodynamically normal at that time. Head CT scan was negative. She was started on aspirin and Plavix at the time. Symptoms resolved in 24 hours. She had a CTA head and neck which shows severe stenosis at the origin of the left carotid artery. There is also estimated 70% stenosis of the left ICA. Carotid duplex done today which shows 50 to 79% stenosis of the right and the left ICA. She quit smoking in 2003. Past medical history: Osteoarthritis, psoriatic arthritis, type 2 diabetes on insulin, COPD, hypertension Past surgical history: Tubal ligation Review of Systems Review of Systems negative unless mentioned in HPI. Physical Exam Vitals and Measurements HR: 76 BP: 161/72 SpO2: 93% HT: 161.5 cm WT: 85.6 kg BMI: 32.8 General: No acute distress; alert and cooperative, frail Respiratory: Non-labored respirations, symmetric chest rise Abdomen: Soft, nondistended and nontender Extremities: Atraumatic, no edema Skin: Warm and dry, no jaundice Neuro: Alert and oriented Psych: Normal mood and affect Assessment/Plan 78-year-old female with bilateral carotid stenosis, and severe stenosis at the origin of the left common carotid artery. Currently on aspirin and Plavix. Recent TIA which resolved within 24 hours. Asymptomatic since then. Plan: Plan for open left carotid endarterectomy with retrograde stenting Will need to hold plavix for 5 days preoperatively Patient will need cardiac stress test. Requesting to have this done at [facility] CT angiogram images were independently reviewed and interpreted. CT angiogram was reviewed in detail. There is heavy calcification noted on the left carotid artery. This of the internal carotid artery per there is also an origin of the common carotid near the arch. Based on this the patient will require a retrograde stenting of the origin of the left carotid as well as a carotid endarterectomy. Risks and benefits were discussed in detail with the patient regards to of stroke. The patient has a symptomatic carotid with history of TIA. I performed the history and examination of the patient and discussed the patient s management with the resident. I reviewed the note by the resident and agree with those documented findings and plan of care. Jarret Elder MD, MPH, FACS Problem List/Past Medical History Procedure/Surgical History Medications adalimumab(Humira Pre-filled Syringe 40 mg/0.8 mL subcutaneous kit) aspirin, 81 mg, Oral, Daily atorvastatin(atorvastatin 80 mg oral tablet) clopidogrel(clopidogrel 75 mg oral tablet) empagliflozin(Jardiance 10 mg oral tablet) ergocalciferol(ergocalciferol 1.25 mg (50,000 intl units) oral capsule) escitalopram(escitalopram 5 mg oral tablet) furosemide(furosemide 20 mg oral tablet) insulin glargine(Lantus insulin Solostar Pen 100 units/mL subcutaneous solution) levothyroxine(levothyroxine 50 mcg (0.05 mg) oral tablet) losartan(losartan 50 mg oral tablet) metFORMIN(metFORMIN 1000 mg oral tablet) omeprazole(omeprazole 40 mg oral delayed release capsule) Allergies No Known Medication Allergies Social History Smoking Status Never smoker Family History Immunizations Health Maintenance Lab Results Diagnostic Results Visit Information Attending Physician: Jarret Elder MD Referring Physician: Emily Mercer MD Original Referring Provider: Emily Mercer MD Primary Care Physician: Emily Mercer MD Visit Date: 02/07/2024 Stress test abnormal. Darcy arranging cardio referral. From: Darcy Iniguez RN To: Isidra Kumari, Chelsea Perez; Sent: 02/27/2024 08:22:06 RAILROAD ENGINEER Subject: General Message Caller Name: CHIO LAMAR; Caller Number: Juan Will call pt with results and get a cardiology referral. 02/07/2024 Vital Signs Vital Sign Value Date Comments Source Heart Rate 76 bpm 02/07/2024 17:17:00 [facility] SBP NIBP 161 mm[Hg] 02/07/2024 17:17:00 [facility] DBP NIBP 72 mm[Hg] 02/07/2024 17:17:00 [facility] Height (cm) 161.5 cm 02/07/2024 17:17:00 [facility] Weight (kg) 85.6 kg 02/07/2024 17:17:00 [facility] BMI 32.8 kg/m2 02/07/2024 17:17:00 [facility] BSA Sandi 1.9 02/07/2024 17:17:00 [facility] SpO2 93 % 02/07/2024 17:17:00 [facility] Encounters Location Location Details Encounter Type Encounter Number Reason For Visit Attending Provider ADM Date DC Date Status Source [facility] [place] [place] Outpatient [id number] Chelsea Catalan 02/06 14:54 :54 02/07 04:59 :59 [facility] [id number] Jarret Elder 02/06 16:20 :21 02/07 04:59 :59 [facility] [place] [place] PreAdmit [id number] Jarret Elder 05/05 12:00 :00 07/05 04:59 :59 [facility] Nurse Phone Call Clinic [id number] Matias Brice 05/05 14:08 :58 05/06 05:59 :59 [facility] Social History Social History Date Source No data available for this section 02/08/2024 [facility]
[2024-11-18 14:32] VITALS: BP 80/41; PULSE 98; RESP 24; TEMP 36.4; O2SAT 99; BMI 32.3
--- NOTE | 2024-11-18 14:33 | ECG_ITS ---
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 Measurements Intervals [place] Rate: 97 P: 5 DC: 176 QRS: -16 QRSD: 85 T: 39 QT: 363 QTc: 462 Interpretive Statements SINUS RHYTHM INFERIOR MYOCARDIAL INFARCTION , OF INDETERMINATE AGE [40+ ms Q WAVE AND/OR ST/T ABNORMALITY IN II/aVF] Compared to ECG 09/02/2024 16:09:18 No significant changes Electronically Signed On 11-18-2024 22:47:24 CDT by Kassidy Frank M.D. [email or web address]
--- NOTE | 2024-11-18 14:41 | XRR_ITS ---
PROCEDURE INFORMATION: Exam: XR Chest Exam date and time: 11/18/2024 2:44 PM Age: 79 years old Clinical indication: Other: AMS TECHNIQUE: Imaging protocol: Radiologic exam of the chest. Views: 1 view. COMPARISON: CR XR chest 1V portable [id number] 09/02/2024 3:56 PM FINDINGS: Lungs: Unchanged 3 mm right midlung density versus osseous density. No infiltrates. Pleural spaces: Unremarkable. No pleural effusion. No pneumothorax. Heart/Mediastinum: Unremarkable. No cardiomegaly. Vasculature: Diffuse aortic calcification again noted. Bones/joints: No suspicious osseous lesions. XR/XR chest 1V portable [id number] IMPRESSION: No acute findings.
--- OUTSIDE RECORDS SUMMARY | 2024-11-18 14:41 | XMS_ITS | Clinical Summary ---
Author Organization [facility] Address [address] [place]: Epic Prelude ADT GENARO GUEVARA [address] Care Team Providers Care Station Installation Supervisor Name Role Phone Emily Mercer MD Primary Care Provider [phone]- [phone] Allergies Active Allergy Reactions Criticality Noted Date Comments Banana Hives High 06/28/2024 Per dtr's report Egg Hives High 05/21/2016 Medications methotrexate (RHEUMATREX) 2.5 mg Tablet Take 2.5 mg by mouth every 7 days. 05/21/19 17 Active amLODIPine (NORVASC) 5 mg tablet Take 5 mg by mouth daily. 05/21/19 17 Active metFORMIN (GLUCOPHAGE) 1,000 mg tablet Take 1,000 mg by mouth 2 times daily with meals. 05/21/19 17 Active albuterol sulfate 90 mcg/Actuation inhaler Take 2 Puffs by inhalation every 6 hours as needed for Shortness of Breath. 05/21/19 17 Active HYDROcodone-acetam inophen (NORCO) 5-325 mg tablet Take 1 Tablet by mouth every 4 hours as needed for Pain, Moderate. Max Daily Amount: 6 Tablet 12 Tablet None 05/21/19 17 Active ergocalciferol (VITAMIN D2) 50,000 unit capsule Take 50,000 Units by mouth. 05/21/19 17 Active cyanocobalamin 1,000 mcg Tablet Take 1 Tablet by mouth daily. 04/28/19 25 Active diclofenac sodium (VOLTAREN) 1 % gel Apply 2 Grams to affected area 4 times daily as needed for Pain. 05/12/19 25 Active Symbicort 80-4.5 mcg/actuation HFA Aerosol Inhaler Take 2 Puffs by inhalation 2 times daily as needed for Shortness of Breath or Wheezing. 05/22/19 25 Active clobetasoL (TEMOVATE) 0.05 % Cream Apply to affected area 2 times daily. 05/12/19 25 Active Jardiance 25 mg tablet Take 1 Tablet by mouth daily. 06/06/19 25 Active escitalopram oxalate (LEXAPRO) 5 mg tablet Take 1 Tablet by mouth daily. 05/22/19 25 Active furosemide (LASIX) 20 mg tablet Take 1 Tablet by mouth daily. 05/22/19 25 Active atorvastatin (LIPITOR) 80 mg tablet Take 1 Tablet by mouth daily. 06/03/19 25 Active levothyroxine 50 mcg tablet Take 1 Tablet by mouth daily. 05/22/19 25 Active omeprazole (PriLOSEC) 40 mg Capsule, Delayed Release(E.C.) Take 1 Capsule by mouth daily. 05/22/19 25 Active Humira 40 mg/0.8 mL Syringe Kit Inject 40 mg by subcutaneous injection every 2 weeks. 05/23/19 25 Active Lantus Solostar U-100 Insulin 100 unit/mL (3 mL) solution for injection Inject 12 Units by subcutaneous injection daily with breakfast. 15 mL 1 07/14/19 25 Active modafiniL (PROVIGIL) 200 mg TabletIndications: Acute metabolic encephalopathy Take 1 Tablet (200 mg) by mouth daily. 30 Tablet 07/15/19 25 Active apixaban (ELIQUIS) 5 mg tablet Take 1 Tablet (5 mg) by mouth 2 times daily. 60 Tablet 5 07/14/19 25 Active potassium CHLORIDE (KLOR-CON M10) 10 mEq Extended Release tablet Take 1 Tablet (10 mEq) by mouth 2 times daily. Take with lasix. 30 Tablet 1 07/14/19 25 Active erythromycin (ILOTYCIN) 5 mg/gram (0.5 %) ointment Administer 0.5 Inches in right eye every 6 hours. 08/11/19 25 Active LORazepam (ATIVAN) 0.5 mg tabletIndications: Hospice care patient Take 0.5 Tablets (0.25 mg) by mouth every 6 hours as needed for Anxiety, Insomnia or Discomfort. 08/11/19 25 Active mecobalamin, vitamin B12, 1,000 mcg Tablet, Chewable Take 1,000 mcg by mouth daily. 08/12/19 Active midodrine (PROAMATINE) 2.5 mg Tablet Take 1 Tablet (2.5 mg) by mouth every 8 hours. 08/11/19 Active ondansetron (ZOFRAN ODT) 4 mg Tablet, Rapid Dissolve Take 1 Tablet (4 mg) by mouth every 4 hours as needed for Nausea/Emesis (mild to moderate). Dissolve tablet on top of tongue, then swallow with saliva. 08/11/19 Active ondansetron (ZOFRAN ODT) 8 mg Tablet, Rapid Dissolve Take 1 Tablet (8 mg) by mouth every 4 hours as needed for Nausea/Emesis (severe). Dissolve tablet on top of tongue, then swallow with saliva. 08/11/19 Active sennosides-docusat e sodium (SENNA-S) 8.6-50 mg tablet Take 1 Tablet by mouth 2 times daily. 08/11/19 Active naloxone (NARCAN) 4 mg/spray [place], Non-Aerosol EMERGENCY USE ONLY: Administer 1 spray (4 mg) in one nostril one time. May repeat in alternating nostrils every 2-3 min until responsive or EMS arrives. 08/11/19 Active naloxone (NARCAN) 4 mg/spray [place], Non-Aerosol Administer 1 [place] (4 mg) in one nostril (alternate nostril with each dose) one time as needed for Respiration (slowed with opioid use). Push plunger to administer. Call 911. May repeat dose, every 2-3 minutes, if the person does not wake up or breathing is not improved. 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 06/27/2024 Laboratory test 06/25/2024 Acute respiratory failure 06/20/2024 Nontraumatic subcortical hem orrhage of right cerebral hemisphere 06/09/2024 Intraventricular hemorrhage, nontraumatic 2024 Obstructive hydrocephalus 06/09/2024 Intracranial hemorrhage 06/09/2024 History of stroke 06/09/2024 Essential hypertension 06/09/2024 Hypothyroidism 06/09/2024 COPD (chronic obstructive pulmonary disease) Acute on chronic respiratory failure with hypoxia and hypercapnia 06/09/2024 T2DM (type 2 diabetes mellitus) 06/09/2024 Resolved Problems Problem Noted Date Diagnosed Date Resolved Date Pneumonia 06/27/2024 06/27/2024 Encounters Date Type Department Care Team Description 11/10/2024 External Device Data [facility] ABSTRACTION Provider, Abstract 09/02/2024 External Device Data [facility]STRACTION Provider, Abstract 09/01/2024 External Device Data [facility] ABSTRACTION Provider, Abstract from Last 3 Months Social History Tobacco Use Types Packs/Day Years Used Date Smoking Tobacco: Former Cigarettes Q uit: 05/21/2002 Smokeless Tobacco: Never Alcohol Use Standard Drinks/Week Comments No 0 (1 standard drink = 0.6 oz pur e alcohol) Comments Unknown Sex and Gender Information Value Date Recorded Sex Assigned at Not on file Legal Sex 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:54 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 Gender Identity Not on file Sexual Orientation Not on file Last Filed Vital Signs Vital Sign Reading Time Taken Comments Blood Pressure 122/57 08/10/2024 11:40 AM CDT Pulse 85 08/10/2024 11:40 AM CDT Temperature 36.4 C (97.5 F) 08/10/2024 11:40 AM CDT Respiratory Rate 18 08/10/2024 11:40 AM CDT Oxygen Saturation 98% 08/10/2024 11:40 AM CDT Inhaled Oxygen Concentration - - Weight 72.8 kg (160 lb 6.4 oz) 08/07/2024 1:28 P M CDT Height 160 cm (5' 3 ) 08/07/2024 1:28 PM CDT Body Mass Index 28.41 08/07/2024 1:28 PM CDT Plan of Treatment Health Maintenance Due Date Last Done Comments DIABETES ANNUAL FOOT EXAM 1964 DIABETES ANNUAL RETINAL EXAM 1964 DIABETES MICROALBUMIN ANNUAL SCREEN 1964 LDL CHOLESTEROL ANNUAL 1964 DTAP/TDAP/TD VACCINES (1 - Tdap) 1965 PNEUMOCOCCAL VACCINE 50+ YEARS (1 of 2 - PCV) 09/25/18 66 ZOSTER VACCINE (1 of 2) 1996 OSTEOPOROSIS SCREENING 09/26/2011 RSV VACCINE (60+ or ) (1 - 1-dose 75+ series) 2021 INFLUENZA VACCINE (#1) 2024 DIABETES HBA1C Q 6 MONTHS 12/20/2024 06/19/2024 Procedures Procedure Name Priority Date/Time Associated Diagnosis Comments HEMOGLOBIN A1C Routine 06/19/2024 4:51 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 from Last 3 Months or Most Recently Relevant to Health Maintenance Results * (ABNORMAL) HEMOGLOBIN A1C (06/19/2024 4:51 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) HEMOGLOBIN A1C 7.6(H) <=5.6 % 06/19/2024 2:28 PM SPECIAL EDUCATION INCLUSION TEACHER [facility] EST. AVG GLUCOSE, A1C 171 mg/dL 06/19/2024 2:28 PM SPECIAL EDUCATION INCLUSION TEACHER [facility] Blood Venipuncture / Unknown 06/19/2024 4:51 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 06/19/2024 5:13 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 Narrative [facility] - 06/19/2024 2:28 PM SPECIAL EDUCATION INCLUSION TEACHER HGB A1C INTERPRETATION NORMAL: <5.7% PRE-DIABETES: 5.7 - 6.4% DIABETES: 6.5% OR GREATER us Paul Rivas DO CHEMISTRY ORDERABLES Final Resu lt [facility] CLIA # [id number] [address] [address] [place] [address] from Last 3 Months or Most Recently Relevant to Health Maintenance Insurance MEDICAID [place] * Guarantor: [facility] Account Type Relation to Patient Date of Phone Billing Address Corporate Other [address] [place] [id number] [facility] Member Subscriber Plan / Payer (Ef fective 2024-Present) Name:Mini Hair Relation to Subscriber:Self Name:Mini Hair Payer ID:Not on file Group ID:Not on file Type:Hospice Address: [address] [place] [id number] Advance Directives For more information, please contact: [phone] Documents on File Type Date Recorded Patient Jewel Stripper Expl anation Advance Directive Living Will 08/11/2024 6:38 AM [facility]IDE THE [facility]OSP[facility] DNR ORDER Advance Directive POA 06/30/2024 9:50 AM A dvance Directive POA Advance Directive POA 06/25/2024 4:07 PM A dvance Directive POA * NO CPR (In Event of Cardiopulmonary Arrest) (Latest Code Status on File) Date Activated Date Inactivated Comments 08/07/2024 12:42 PM 08/10/2024 4:34 PM Question Answer Comments Mechanical Ventilation (for respiratory distress) - Invasive (i.e. intubation): No Mechanical Ventilation (for respiratory distress) - Non-Invasive (i.e. BiPAP, CPAP): No * Full Code Date Activated Date Inactivated Comments 07/08/2024 8:45 AM 07/14/2024 6:55 PM * Default Full Code - Needs Discussion Date Activated Date Inactivated Comments 07/06/2024 6:53 PM 07/08/2024 8:45 AM * Full Code Date Activated Date Inactivated Comments 06/28/2024 4:14 PM 07/06/2024 12:00 PM * Full Code Date Activated Date Inactivated Comments 06/10/2024 5:12 PM 06/28/2024 3:43 PM Care Teams Station Installation Supervisor Relationship Specialty Start Date End Date Emily Mercer MD [address] [place] [address] PCP - General Internal Medicine 05/21/16
--- OUTSIDE RECORDS SUMMARY | 2024-11-18 14:41 | XMS_ITS | Clinical Summary ---
Author Organization [facility] Address [address] [place] [address] Phone Care Team Providers Care Rolled Oats Mill Operator Name Role Phone Emily Mercer MD Primary Care Provider [phone]- [phone] Allergies Active Allergy Reactions Criticality Noted Date Comments Egg Hives High 05/21/2016 Medications metFORMIN (GLUCOPHAGE) 1,000 mg tablet Take 1,000 mg by mouth 2 times daily with meals. Active albuterol HFA 90 mcg inhaler Take 2 Puffs by inhalation every 6 hours as needed for Shortness of Breath. Active valsartan (DIOVAN) 320 mg tablet Take 320 mg by mouth daily. Active hydroCHLOROthia zide 25 mg tablet Take 25 mg by mouth daily. Active omeprazole (PriLOSEC) 20 mg Capsule, Delayed Release(E.C.) Take 20 mg by mouth daily. Active methotrexate (RHEUMATREX) 2.5 mg Tablet Take 2.5 mg by mouth every 7 days. Active cholecalciferol 50,000 unit Capsule Take by mouth. Activ e ergocalciferol (VITAMIN D2) 50,000 unit capsule Take 50,000 Units by mouth. Active amLODIPine (NORVASC) 5 mg tablet Take 5 mg by mouth daily. Active levothyroxine 25 mcg tablet Take 25 mcg by mouth daily fur buyer. Active atorvastatin (LIPITOR) 40 mg tablet Take 40 mg by mouth late in the day. Active insulin lispro (HumaLOG) 100 unit/mL cartridge Inject 10 Units by subcutaneous injection daily. Active HYDROcodone-mauro taminophen (NORCO) 5-325 mg tablet Take 1 Tablet by mouth every 4 hours as needed for Pain, Moderate. 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 Gender Identity Not on file Sexual Orientation Not on file Last Filed Vital Signs Vital Sign Reading Time Taken Comments Blood Pressure 111/53 05/21/2016 10:40 AM BRILLIANDEER LOOPER Pulse - - Temperature 36.1 C (96.9 F) 05/21/2016 10:40 AM BRILLIANDEER LOOPER Respiratory Rate 20 05/21/2016 10:4 0 AM BRILLIANDEER LOOPER Oxygen Saturation 94% 05/21/2016 10: 40 AM BRILLIANDEER LOOPER Inhaled Oxygen Concentration - - Weight 102.8 kg (226 lb 9.6 oz) 05/21/2016 9:50 AM BRILLIANDEER LOOPER Height 157.5 cm (5' 2 ) 05/21/2016 9:50 AM BRILLIANDEER LOOPER Body Mass Index 41.45 05/21/2016 9:50 AM BRILLIANDEER LOOPER Plan of Treatment Health Maintenance Due Date Last Done Comments DTAP/TDAP/TD VACCINES (1 - Tdap) 1965 PNEUMOCOCCAL VACCINE 50+ YEARS (1 of 1 - PCV) 09/25/18 97 ZOSTER VACCINE (1 of 2) 1996 OSTEOPOROSIS SCREENING 09/26/2011 RSV VACCINE (60+ or ) (1 - 1-dose 75+ series) 2021 INFLUENZA VACCINE (#1) 2024 Insurance MEDICAID [place] Care Teams Rolled Oats Mill Operator Relationship Specialty Start Date End Date Emily Mercer MD [address] [place] [address] PCP - General Internal Medicine 05/21/16
--- NOTE | 2024-11-18 15:05 | PC.PHAR ---
Pt is resident at [facility]-pt is on hospice and has been taken off of many of her medications. They are as follows: Amlodipine 5mg, Atorvastatin 80mg, Symbicort 80-4.5, B-12, D2 50,000units, Escitalopram 5mg, Humira 40mg/0.8ml, Hctz 25mg, Lantus Solostar 10 units daily, and Metformin 1,000mg.
[2024-11-18 15:08] VITALS: BP 105/41; PULSE 93; RESP 12; O2SAT 99
--- NOTE | 2024-11-18 15:09 | PC.NURSE ---
MULTIPLE IV ATTEMPTS MADE BY EMS AND NURSING STAFF. IV CATH PLACED ON RIGHT CHEST ABOVE RIGHT BREAST.
--- NOTE | 2024-11-18 15:13 | W.ED.WEAKNES ---
HPI - Weakness General: Chief complaint: Weakness Stated complaint: AMS Time Seen by Provider: 11/18/24 14:31 History of Present Illness: Patient is a 79-year-old female on hospice with intracranial thalamic bleed, DVT, on Eliquis, presents to the emergency room with altered mental status. Family noted this that happened in the last 24 hours. They stated she has had a really good last 5 days. She was asking to go home from the assisted hospice. No other complaints on review of systems as per family now at bedside. Related Data Home Medications ?Medication ?Instructions ?Recorded ?Confirmed levothyroxine 50 mcg tablet 50 mcg PO DAILY 06/23/19 11/18/24 empagliflozin 25 mg tablet 25 mg PO DAILY 06/09/24 11/18/24 (Jardiance) furosemide 20 mg tablet 20 mg PO DAILY 06/09/24 11/18/24 omeprazole 40 mg capsule,delayed 40 mg PO BID 06/09/24 11/18/24 release apixaban 5 mg tablet (Eliquis) 5 mg PO BID 07/15/24 11/18/24 potassium chloride 10 mEq 10 meq PO BID 07/15/24 11/18/24 tablet,extended release(part/cryst) acetaminophen 325 mg tablet 650 mg PO Q6H PRN pain/increased 11/18/24 11/18/24 temp. bisacodyl 10 mg rectal suppository 10 mg IA DAILY PRN Constipation 11/18/24 11/18/24 (Dulcolax (bisacodyl)) menthol 0.44 %-zinc oxide 20.6 % See Rx Instructions .Route .COMPLEX 11/18/24 11/18/24 topical ointment (Calmoseptine) midodrine 5 mg tablet 5 mg PO DAILY 11/18/24 11/18/24 ondansetron HCl 4 mg tablet 4 - 8 mg PO Q4H PRN Nausea 11/18/24 11/18/24 sennosides 8.6 mg-docusate sodium 1 tab PO BID 11/18/24 11/18/24 50 mg tablet (Senna Plus) Previous Rx's ?Medication ?Instructions ?Recorded albuterol sulfate 90 mcg/actuation 1 inh inhalation Q6H PRN shortness 07/25/24 aerosol inhaler (Ventolin HFA) of breath or wheezing #8.5 grams fluticasone 100 mcg-salmeterol 50 1 inh inhalation DAILY #60 ea 07/25/24 mcg/dose blistr powdr for inhalation (Advair Diskus) Allergies Allergy/AdvReac Type Severity Reaction Status Date / Time banana Allergy Intermediate ADR-Vomitin Verified 05/12/24 11:40 g Egg Derived Allergy Intermediate ADR-Itching Verified 05/12/24 11:40 Latex, Natural Rubber Allergy ADR-Itching Verified 07/24/24 20:32 Review of Systems General: Reports: ROS unobtainable due to medical condition and ROS unobtainable due to mental status PFSH ED PFSH: Medical History (Updated 11/18/24 @ 15:17 by KRISTEL Rudolph) Cerebral infarction, left hemisphere Cerebrovascular event OA (osteoarthritis) of knee Psoriatic arthritis Psoriasis Osteoarthritis Insulin dependent diabetes mellitus COPD (chronic obstructive pulmonary disease) Hypertension High risk medication use Immunization counseling Surgical History H/O tubal ligation Family History Other Cancer Heart disease Hypertension Denies family history of Rheumatoid arthritis Lupus Social History Smoking and tobacco/nicotine status: former use of tobacco/nicotine Alcohol intake: never Substance/Drug Use: unknown Physical Exam Const: COMMON NORMALS: well nourished ORIENTATION/CONSCIOUSNESS: Yes patient obtunded HENMT: COMMON NORMALS: normocephalic and atraumatic HEAD & SCALP: normocephalic and atraumatic Chest: COMMONS NORMALS: normal inspection of the chest and normal palpation of entire chest wall Resp: COMMON NORMALS: normal respiratory effort and clear to auscultation bilaterally AUSCULTATION: clear to auscultation bilaterally Cardio: COMMON NORMALS: regular rate and regular rhythm RATE: regular rate RHYTHM: regular rhythm GI: COMMON NORMALS: Normal to inspection, nondistended, normoactive bowel sounds present and Soft to palpation PALPATION: Yes Soft to palpation : COMMON NORMALS: Yes no CVA tenderness BLADDER/KIDNEY EXAM: Yes no CVA tenderness Back/Pelvis: COMMON NORMALS: no CVA tenderness Extremity: COMMON NORMALS: normal to inspection, full ROM and capillary refill normal Neuro: SENSORIUM/ORIENTATION: Yes obtunded Psych: COMMON NORMALS: mental status grossly normal and Normal thought process present THOUGHT PROCESS: Normal thought process present Skin: COMMON NORMALS: no rashes or lesions noted and no wounds GENERAL SKIN EXAM: no rashes or lesions noted Course Reevaluation(s): Reevaluation #1: Blood pressure worsening. Discussed with family. Patient's daughter now wants to take her back to [facility]. Nurse updated Vital Signs: Vital signs: Vital Signs Temperature 97.6 F 11/18/24 14:32 Pulse Rate 85 11/18/24 15:54 Respiratory Rate 12 11/18/24 15:54 Blood Pressure 118/42 11/18/24 15:54 Pulse Oximetry 99 11/18/24 15:54 Oxygen Delivery Me thod Room Air 11/18/24 14:32 MDM - Weakness Medical Decision Making Discussed wishes with family. One of the family members is upset that patient is actively dying. Patient had wished to be on hospice, and her daughter is now voicing her advocacy. Daughter is tearful, does not want her other family member upset regarding today's events. Daughter states she can take her home and has a bed, oxygen. Daughter understands that she is actively dying and does not wish further testing. Daughter states she brought her here to make her brother feel better about the situation. Blood pressure is soft. Will give 1 L IV fluid, and transport home to patient's home. Daughter has all her needs met in the home. Daughter does not have quite everything together. She would like her to initially go to [facility], then she can go home with daughter. All of her questions answered to her satisfaction. Lab Data Radiology Impressions Chest X-Ray 11/18/24 14:41 IMPRESSION: No acute findings. All radiology interpretation(s) finalized by discharge Discharge Plan Discharge Patient Disposition: Home Clinical Impression: Acute metabolic encephalopathy, Hospice program care Condition: Stable Prescriptions: No Action levothyroxine 50 mcg tablet 50 mcg PO DAILY potassium chloride 10 mEq tablet,ER particles/crystals 10 meq PO BID Eliquis 5 mg tablet 5 mg PO BID albuterol sulfate [Ventolin HFA] 90 mcg/actuation HFA aerosol inhaler 1 inh inhalation Q6H PRN (Reason: shortness of breath or wheezing) Qty: 8.5 0RF fluticasone propion-salmeterol [Advair Diskus] 100-50 mcg/dose blister with device 1 inh inhalation DAILY Qty: 60 0RF acetaminophen 325 mg Tablet 650 mg PO Q6H PRN (Reason: pain/increased temp.) ondansetron HCl 4 mg tablet 4 - 8 mg PO Q4H PRN (Reason: Nausea) sennosides-docusate sodium [Senna Plus] 8.6-50 mg tablet 1 tab PO BID midodrine 5 mg tablet 5 mg PO DAILY bisacodyl [Dulcolax (bisacodyl)] 10 mg Suppository 10 mg IA DAILY PRN (Reason: Constipation) menthol-zinc oxide [Calmoseptine] 0.44-20.6 % ointment See Rx Instructions .ROUTE .COMPLEX Rx Instructions: Apply topically to red areas of perineum every shift. omeprazole 40 mg capsule,delayed release(DR/EC) 40 mg PO BID furosemide 20 mg tablet 20 mg PO DAILY Jardiance 25 mg tablet 25 mg PO DAILY Discharge Orders: Discharge ED (Routine); Ordered 11/18/24 Ordered By: Dara Varela Referrals: Emily Mercer MD [Primary Care Provider, Internal Medicine] Discharge Diet: Usual diet Discharge Activity: Resume usual activity Patient Instructions: Hospice Care, Patient Portal & [place] Instructions Activity Restrictions/Additional Instructions: Return to ED if you need help with the patient. Print Language: Angolan Coding Level of Care Code ED [employer] for [employer]
[2024-11-18 15:19] VITALS: BP 49/34; PULSE 90; RESP 11; O2SAT 100
[2024-11-18 15:46] VITALS: BP 105/55; PULSE 86; RESP 11; O2SAT 98
[2024-11-18 15:54] VITALS: BP 118/42; PULSE 85; RESP 12; O2SAT 99
== END 2024-11-18 16:26 | disposition home or self-care (01) ==
PROVIDERS: Emergency Provider Physician Assistant; PCP Internal Medicine
DX: G93.41 Metabolic encephalopathy (principal); Z51.5 Encounter for palliative care; Z79.01 Long term (current) use of anticoagulants; Z87.891 Personal history of nicotine dependence; J44.9 Chronic obstructive pulmonary disease, unspecified
CPT/HCPCS: 71045; 93005; 99285; J7030